=== PATIENT | female | born 1980 | race Hispanic/Latino ===

== ENCOUNTER 2018-10-04 17:41 | Emergency (ER) | payer BC, OTHER ==
[2018-10-04 18:21] LABS: Absolute Lymphocytes (CBC) 1.3 K/uL (0.7-4.9); Absolute Monocytes 0.4 K/uL (0.1-1.3); Absolute Neutrophil 7.2 K/uL (1.8-8.0); Basophils % 0.8 % (0-1.3); Eosinophils % 0.3 % (0-4.4); Hematocrit 40.9 % (36.0-45.0); Lymphocytes % 14.9 % (15.3-44.8); MPV 9.3 fL (7.6-11.3); RBC Red Blood Cell Count 4.68 M/uL (3.86-4.86)
[2018-10-04] MEDS ORDERED: NA CHLORIDE 0.9% 1,000 ML ONE (18:28)
[2018-10-04] MEDS ORDERED: ONDANSETRON 4 MG/2 ML VIAL ONE ×2 (18:28→19:28)
[2018-10-04] MEDS ORDERED: FAMOTIDINE 20 MG/2 ML VIAL IV ONE (18:29)
[2018-10-04 18:38] LABS: ALT/SGPT 27 U/L (12-78); AST/SGOT 20 U/L (15-37); Albumin 3.1 g/dL (3.4-5.0); Alkaline Phosphatase 92 U/L (45-117); BUN Blood Urea Nitrogen 8 mg/dL (7-18); Bicarbonate 22 mmol/L (21-32); Bilirubin Direct 0.1 mg/dL (0-0.2); Bilirubin Total 0.6 mg/dL (0.2-1.0); Glucose Level 108 mg/dL (74-106); Lipase 72 U/L (73-393); Protein, Total 7.1 g/dL (6.4-8.2); Sodium Level 142 mmol/L (136-145)
[2018-10-04 19:35] LABS: Urine Blood TRACE (NEG); Urine Glucose NEGATIVE (NEG); Urine Protein 1+ (NEG)
[2018-10-04 19:36] LABS: Urine Bacteria >50 /HPF (<20); Urine Culture Reflex Order NOT NEEDED; Urine RBC <5 /HPF (NONE SEEN)
--- NOTE | 2018-10-04 22:12 | ER ---
Nurse's Notes [facility] Name: Tash Rodriguez Age: 38 yrs Sex: Female : 1980 Arrival Date: 10/04/2018 Time: 17:45 Bed 25 Private MD: Diagnosis: Nausea and vomiting; related conditions, unspecified, first trimester Presentation: 10/04 17:50 Presenting complaint: Patient states: I am about 11 weeks and at my 9 week apt la1 I was prescribed reglan for nausea which I have never had to take but this morning I started vomiting and I can't keep anything down at all. Transition of care: patient was not received from another setting of care. Onset of symptoms was October 04, 2018. Risk Assessment: Do you want to hurt yourself or someone else? Patient reports no desire to harm self or others. Initial Sepsis Screen: Does the patient meet any 2 criteria? No. Patient's initial sepsis screen is negative. Does the patient have a suspected source of infection? No. Patient's initial sepsis screen is negative. Care prior to arrival: None. 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 - Social history:: Smoking status: Patient/guardian denies using tobacco. - Ebola Screening: : No symptoms or risks identified at this time. Screenin:32 Abuse screen: Denies threats or abuse. Denies injuries from another. Nutritional mg2 screening: No deficits noted. Tuberculosis screening: No symptoms or risk factors identified. Fall Risk IV access (20 points). Assessment: 18:30 General: Appears in no apparent distress. comfortable, Behavior is calm, cooperative. mg2 Pain: Complains of pain in suprapubic area Pain does not radiate. Pain currently is 1 out of 10 on a pain scale. Quality of pain is described as aching, Pain began gradually, Is intermittent. Neuro: Level of Consciousness is awake, alert, obeys commands, Oriented to person, place, time, situation. Cardiovascular: Capillary refill < 3 seconds Patient's skin is warm and dry. Respiratory: Airway is patent Respiratory effort is even, unlabored, Respiratory pattern is regular, symmetrical. GI: Abdomen is round non-distended, Reports nausea, vomiting. : No signs and/or symptoms were reported regarding the genitourinary system. : Reports pain in suprapubic area. EENT: No signs and/or symptoms were reported regarding the EENT system. Derm: Skin is intact, is healthy with good turgor, Skin is pink, warm \T\ dry. normal. Musculoskeletal: Circulation, motion, and sensation intact. Capillary refill < 3 seconds. 21:14 Reassessment: transvaginal ultrasound at bedside ongoing. mg2 22:22 Reassessment: Patient states feeling better. Patient states symptoms have improved. mg2 Vital Signs: 17:53 Pulse 97; Resp 16; Temp 98.7; Pulse Ox 100% on R/A; Weight 95.25 kg; Height 5 ft. 1 in. la1 (154.94 cm); 17:53 BP 132 / 104; la1 18:33 BP 134 / 72; Pulse 85; Resp 18; Pulse Ox 100% on R/A; Pain 1/10; mg2 19:36 Pulse 80; Resp 18; Pulse Ox 100% on R/A; Pain 0/10; mg2 21:07 BP 132 / 73; Pulse 68; Resp 18; Pulse Ox 100% on R/A; mg2 22:00 BP 110 / 78; Pulse 78; Resp 18; Pulse Ox 100% on R/A; Pain 0/10; mg2 17:53 Body Mass Index 39.68 (95.25 kg, 154.94 cm) la1 ED Course: 17:45 Patient arrived in ED. mr 17:52 Triage completed. la1 17:52 Arm band placed on left wrist. la1 18:00 Ever Alvarez PA is PHCP. cp 18:01 Jose Jaramillo MD is Attending Physician. cp 18:03 Michael Elaine, RN is Primary Nurse. mg2 18:32 No provider procedures requiring assistance completed. Inserted saline lock: 22 gauge mg2 in left hand, using aseptic technique. Blood collected. 18:33 Patient has correct armband on for positive identification. Door closed. mg2 21:46 Matter Eval Tm 1 In Process Unspecified. EDMS 22:22 IV discontinued, intact, bleeding controlled, No redness/swelling at site. Pressure mg2 dressing applied. Administered Medications: 18:29 Drug: Zofran 4 mg Route: IVP; Site: left hand; mg2 20:59 Follow up: Response: No adverse reaction; Marked relief of symptoms mg2 18:29 Drug: Pepcid 20 mg Route: IVP; Site: left hand; mg2 20:58 Follow up: Response: No adverse reaction; Marked relief of symptoms mg2 18:30 Drug: NS 0.9% 1000 ml Route: IV; Rate: 1 bolus; Site: left hand; mg2 20:59 Follow up: Response: No adverse reaction; IV Status: Completed infusion mg2 19:30 Drug: NS 0.9% 1000 ml Route: IV; Rate: 1 bolus; Site: left hand; mg2 20:58 Follow up: Response: No adverse reaction; IV Status: Completed infusion mg2 19:30 Drug: Zofran 4 mg Route: IVP; Site: left hand; mg2 20:58 Follow up: Response: No adverse reaction; Marked relief of symptoms mg2 22:05 Not Given (Patient Refused): Phenergan 12.5 mg IVP once mg2 Outcome: 22:11 Discharge ordered by . xenia 22:22 Discharged to home ambulatory, with family. mg2 22:22 Condition: stable 22:22 Discharge instructions given to patient, family, Instructed on discharge instructions, follow up and referral plans. medication usage, Demonstrated understanding of instructions, follow-up care, medications, Prescriptions given X 2. 22:23 Patient left the ED. mg2 Signatures: Dispatcher [employer] EDAL Chelsea Lyles Victoriano Desouza, RN RN la1 Ever Alvarez PA PA cp Gardose, Michele, RN RN mg2 Corrections: (The following items were deleted from the chart) 19:32 19:32 Temp 101.1F; mg2 mg2
--- NOTE | 2018-10-04 22:12 | EDPHYS ---
Physician Documentation [facility] Name: Tash Rodriguez Age: 38 yrs Sex: Female : 1980 Arrival Date: 10/04/2018 Time: 17:45 Bed 25 Private MD: ED Physician Jose Jaramillo HPI: 10/04 18:15 This 38 yrs old Female presents to ER via Ambulatory with complaints of 11 wks cp , Vomiting, Back Pain. 18:15 The patient presents to the emergency department with abdominal pain, of the left lower cp quadrant, nausea and vomiting, that started this morning, and is continuous, described as bilious, vaginal bleeding, described as spotting. 18:15 The estimated gestational age is 11 weeks. course: care: private OB cp physician, Leakage of Fluid: none appreciated, Ultrasound: the patient had an ultrasound. Previous pregnancies: the patient has never been . Associated signs and symptoms: Pertinent positives: vaginal bleeding, Pertinent negatives: chest pain, diarrhea, fever. 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 - Social history:: Smoking status: Patient/guardian denies using tobacco. - Ebola Screening: : No symptoms or risks identified at this time. ROS: 18:30 Constitutional: Positive for poor PO intake, Negative for body aches, chills, fever. cp 18:30 Eyes: Negative for injury, pain, redness, and discharge. cp 18:30 ENT: Negative for drainage from ear(s), ear pain, sore throat, difficulty swallowing, difficulty handling secretions. 18:30 Cardiovascular: Negative for chest pain, edema, palpitations. 18:30 Respiratory: Negative for cough, shortness of breath, wheezing. 18:30 Abdomen/GI: Positive for abdominal pain, nausea and vomiting, Negative for diarrhea, constipation, black/tarry stool, rectal bleeding. 18:30 Back: Positive for radiated pain. 18:30 : Positive for vaginal bleeding, Negative for urinary symptoms. 18:30 Skin: Negative for rash. 18:30 Neuro: Negative for altered mental status, dizziness, headache, syncope, weakness. 18:30 All other systems are negative. Exam: 18:35 Constitutional: The patient appears in no acute distress, alert, awake, non-toxic, well cp developed, well nourished. 18:35 Head/Face: Normocephalic, atraumatic. cp 18:35 Eyes: Periorbital structures: appear normal, Conjunctiva: normal, no exudate, no injection, Sclera: no appreciated abnormality, Lids and lashes: appear normal, bilaterally. 18:35 ENT: External ear(s): are unremarkable, Nose: is normal, Mouth: Lips: moist, Oral mucosa: pink and intact, moist, Posterior pharynx: is normal, airway is patent, no erythema, no exudate. 18:35 Neck: ROM/movement: is normal, is supple, without pain, no range of motions limitations, no meningismus, no nuchal rigidity. 18:35 Chest/axilla: Inspection: normal, Palpation: is normal, no crepitus, no tenderness. 18:35 Cardiovascular: Rate: normal, Rhythm: regular, Heart sounds: murmur, not appreciated, Edema: is not appreciated. 18:35 Respiratory: the patient does not display signs of respiratory distress, Respirations: normal, no use of accessory muscles, no retractions, no splinting, no tachypnea, labored breathing, is not present, Breath sounds: are clear throughout, no decreased breath sounds, no stridor, no wheezing. 18:35 Abdomen/GI: Inspection: abdomen appears normal, Bowel sounds: active, all quadrants, Palpation: soft, in all quadrants, mild abdominal tenderness, in the left lower quadrant, rebound tenderness, is not appreciated, involuntary guarding, is not appreciated. 18:35 Back: pain, that is mild, of the low back area, ROM is normal. 18:35 Skin: no rash present. 18:35 Neuro: Orientation: to person, place \T\ time. Mentation: is normal, Cerebellar function: is grossly normal, Motor: moves all fours, strength is normal, Sensation: is normal. Vital Signs: 17:53 Pulse 97; Resp 16; Temp 98.7; Pulse Ox 100% on R/A; Weight 95.25 kg; Height 5 ft. 1 in. la1 (154.94 cm); 17:53 BP 132 / 104; la1 18:33 BP 134 / 72; Pulse 85; Resp 18; Pulse Ox 100% on R/A; Pain 1/10; mg2 19:36 Pulse 80; Resp 18; Pulse Ox 100% on R/A; Pain 0/10; mg2 21:07 BP 132 / 73; Pulse 68; Resp 18; Pulse Ox 100% on R/A; mg2 22:00 BP 110 / 78; Pulse 78; Resp 18; Pulse Ox 100% on R/A; Pain 0/10; mg2 17:53 Body Mass Index 39.68 (95.25 kg, 154.94 cm) la1 MDM: 18:01 Patient medically screened. cp 18:30 Differential diagnosis: ectopic , hyperemesis , dehydration, cp electrolyte abnormality. 22:10 Data reviewed: vital signs, nurses notes, lab test result(s), radiologic studies, cp ultrasound. 22:10 Counseling: I had a detailed discussion with the patient and/or guardian regarding: the cp historical points, exam findings, and any diagnostic results supporting the discharge/admit diagnosis, lab results, radiology results, the need for outpatient follow up, an OB/Gyne specialist, to return to the emergency department if symptoms worsen or persist or if there are any questions or concerns that arise at home. Response to treatment: the patient's symptoms have markedly improved after treatment, VSS. Nausea markedly improved and vomiting resolved. Patient observed tolerating po fluids. Will discharge to home for continued monitoring. 10/04 18: Order name: Basic Metabolic Panel; Complete Time: 18:52 cp 10/04 18:52 Interpretation: Normal except: CL 110; GLUC 108. cp 10/04 18:06 Order name: CBC with Diff; Complete Time: 18:52 cp 10/04 18:53 Interpretation: Normal except: RDW 15.7; LEONEL% 80.0; LYM% 14.9. cp 10/04 18:06 Order name: Creatinine for Radiology; Complete Time: 18:52 cp 10/04 18:06 Order name: Hepatic Function; Complete Time: 18:52 cp 10/04 20:26 Interpretation: Normal except: ALB 3.1; GLOB 4.0; A/G 0.8. 10/04 18:06 Order name: Lipase; Complete Time: 18:52 cp 10/04 18:53 Interpretation: LIP 72; Reviewed. 10/04 18:15 Order name: Urine Microscopic Only cp 10/04 18:15 Order name: Quantitative Hcg 10/04 18:15 Order name: Rh Type 10/04 18:15 Order name: Urine Microscopic Only; Complete Time: 20:25 EDMS 10/04 20:26 Interpretation: Normal except: UWBC 5-10; UBACT >50; SQEPI 20-50. 10/04 18:15 Order name: HCG, Quantitative; Complete Time: 19:27 EDMS 10/04 19:27 Interpretation: HCGQ 45397; Reviewed. 10/04 19:29 Order name: Urine Dipstick--Ancillary (enter results); Complete Time: 20:25 [facility] 10/04 20:26 Interpretation: UKET 3+; UBLD TRACE; UPROT 1+; UESTR 1+. 10/04 19:29 Order name: Urine --Ancillary (enter results); Complete Time: 20:25 ar 10/04 21:52 Order name: Rh Typing; Complete Time: 22:08 EDMS 10/04 22:08 Interpretation: Reviewed. 10/04 18:06 Order name: IV Saline Lock; Complete Time: 18:15 10/04 18:06 Order name: Labs collected and sent; Complete Time: 18:15 10/04 18:15 Order name: Urine Dipstick-Ancillary (obtain specimen); Complete Time: 19:30 10/04 18:15 Order name: Urine Test (obtain specimen); Complete Time: 19:30 10/04 20:45 Order name: PO challenge; Complete Time: 22:05 cp 10/04 21:45 Order name: Matter Eval Tm 1 EDMS Administered Medications: 18:29 Drug: Zofran 4 mg Route: IVP; Site: left hand; mg2 20:59 Follow up: Response: No adverse reaction; Marked relief of symptoms mg2 18:29 Drug: Pepcid 20 mg Route: IVP; Site: left hand; mg2 20:58 Follow up: Response: No adverse reaction; Marked relief of symptoms mg2 18:30 Drug: NS 0.9% 1000 ml Route: IV; Rate: 1 bolus; Site: left hand; mg2 20:59 Follow up: Response: No adverse reaction; IV Status: Completed infusion mg2 19:30 Drug: NS 0.9% 1000 ml Route: IV; Rate: 1 bolus; Site: left hand; mg2 20:58 Follow up: Response: No adverse reaction; IV Status: Completed infusion mg2 19:30 Drug: Zofran 4 mg Route: IVP; Site: left hand; mg2 20:58 Follow up: Response: No adverse reaction; Marked relief of symptoms mg2 22:05 Not Given (Patient Refused): Phenergan 12.5 mg IVP once mg2 Disposition: 10/05 07:07 Co-signature as Attending Physician, Jose Jaramillo MD. rn Disposition: 10/04/18 22:11 Discharged to Home. Impression: Nausea and vomiting, related conditions, unspecified, first trimester. - Condition is Stable. - Discharge Instructions: First Trimester of , Vomiting, Adult. - Prescriptions for Phenergan 25 mg Rectal Suppository - insert 1 suppository by RECTAL route every 6 hours As needed; 12 suppository. promethazine 25 mg Oral Tablet - take 1 tablet by ORAL route every 6 hours As needed; 20 tablet. - Medication Reconciliation Form, Thank You Letter, Antibiotic Education, Prescription Opioid Use form. - Follow up: Private Physician; When: 1 - 2 days; Reason: Recheck today's complaints. - Problem is new. - Symptoms have improved. Signatures: Dispatcher [employer] [facility] Jose Jaramillo MD MD rn Attema, Lee RN RN la1 Ever Alvarez PA PA cp Gardose, Michele, RN RN mg2 Corrections: (The following items were deleted from the chart) 10/04 21:45 18:54 Transvaginal Ob+US.RAD.BRZ ordered. [facility] 22:23 22:11 10/04/2018 22:11 Discharged to Home. Impression: Nausea and vomiting; mg2 related conditions, unspecified, first trimester. Condition is Stable. Forms are Medication Reconciliation Form, Thank You Letter, Antibiotic Education, Prescription Opioid Use. Follow up: Private Physician; When: 1 - 2 days; Reason: Recheck today's complaints. Problem is new. Symptoms have improved. cp
--- NOTE | 2018-10-05 08:13 | RAD REPORT ---
EXAM DESCRIPTION: US - Matter Omi Tm 1 - 10/04/2018 9:45 pm CLINICAL HISTORY: , pelvic pain Preliminary findings provided at the time of the study. COMPARISON: None. FINDINGS: Gestational sac normal in appearance. A single intrauterine gestation is identified. Heart rate is 173 bpm. No hematoma, mass or other suspicious finding. Monserrate-rump length measurement corres ponds to a 11 W 3 D age. BERTHA is 04/22/2019. No intrauterine hematoma. Amniotic fluid volume is normal . No ovarian or adnexal abnormality seen. A 3 x 2 centimeter right anterior mid uterine fibroid is present. A 5.4 centimeter left fundal fibroi d is present as well. IMPRESSION: Single T11 W 3 D intrauterine gestation. BERTHA is 04/22/2019. Heart rate is normal. Two moderate-sized fibroids are present in the uterus. No other significant uterine finding. No suspicious adnexal finding.
== END 2018-10-04 22:23 | disposition home or self-care (01) ==
LOC: ER 17:41
DX: O26.851 Spotting complicating pregnancy, first trimester (principal); Z3A.11 11 weeks gestation of pregnancy; Z88.1 Allergy status to other antibiotic agents; Z88.2 Allergy status to sulfonamides; Z88.5 Allergy status to narcotic agent
CPT/HCPCS: 36415; 76801; 80048; 80076; 81003; 81015; 81025; 83690; 84702; 85025; 86901; 96361; 96374; 96375; 99284; J2405; J7030

== ENCOUNTER 2019-04-17 11:09 | Emergency (ER) | payer BC ==
[2019-04-17 13:04] LABS: Absolute Lymphocytes (CBC) 1.1 K/uL (0.7-4.9); Basophils % 0.6 % (0-1.3); Hematocrit 29.4 % (36.0-45.0); Lymphocytes % 17.3 % (15.3-44.8); MPV 8.9 fL (7.6-11.3); RBC Red Blood Cell Count 3.42 M/uL (3.86-4.86)
[2019-04-17 13:14] LABS: ALT/SGPT 26 U/L (12-78); AST/SGOT 20 U/L (15-37); Albumin 2.8 g/dL (3.4-5.0); Alkaline Phosphatase 112 U/L (45-117); BUN Blood Urea Nitrogen 9 mg/dL (7-18); Bicarbonate 29 mmol/L (21-32); Bilirubin Direct 0.1 mg/dL (0-0.2); Bilirubin Total 0.4 mg/dL (0.2-1.0); Glucose Level 89 mg/dL (74-106); Potassium 3.6 mmol/L (3.5-5.1); Protein, Total 6.4 g/dL (6.4-8.2); Sodium Level 147 mmol/L (136-145)
[2019-04-17 13:20] LABS: Urine Appearance CLOUDY; Urine Bilirubin NEGATIVE (NEG); Urine Blood 3+ (NEG); Urine Color RED; Urine Glucose NEGATIVE (NEG); Urine Microscopic Reflex ORDER UMIC; Urine Protein 1+ (NEG); Urine Specific Gravity <=1.005 (1.005-1.030); Urine Urobilinogen 0.2 mg/dL (0.2-1.0)
[2019-04-17 13:36] LABS: Urine Bacteria 20-50 /HPF (<20); Urine Culture Reflex Order REFLEXED; Urine RBC >50 /HPF (NONE SEEN)
--- NOTE | 2019-04-17 14:42 | EDPHYS ---
Physician Documentation [facility] Name: Tash Duenas Age: 39 yrs Sex: Female : 1980 Arrival Date: 04/17/2019 Time: 11:12 Bed 13 Private MD: ED Physician Garrett Duncan HPI: 04/17 12:25 This 39 yrs old Female presents to ER via Ambulatory with complaints of Blood pm1 Pressure Problem, Headache. 12:25 The patient complains of pain to the head, diffusely. The patient describes the pm1 headache as aching, constant. Onset: The symptoms/episode began/occurred this morning. Associated signs and symptoms: Pertinent positives: elevated blood pressure, Pertinent negatives: dizziness, fever, nausea, neck stiffness, vomiting, vomiting. Headache History: Other history of migraines. The patient has been recently seen by a physician: Dr. Rodriguez. Discharged from [facility] yesterday. Was admitted for anemia post , UTI, and retained products of conception. Had DNC, blood transfusions, and abx treatment. Patient currently taking Augmentin and Ceftin for UTI that is improving. Patient without any current urinary symptoms. Reported elevated blood pressure at home with headache. Patient without any heavy vaginal bleeding or abdominal pain. 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 tw2 Historical: - Allergies: 11:32 Codeine; hb 11:32 Keflex; hb 11:32 one other unknown abx; hb 11:32 Sulfa (Sulfonamide Antibiotics); hb 11:51 Cephalexin; tw2 - Home Meds: 11:51 Amitriptyline Oral [Active]; tw2 - PMHx: 11:32 Migraines; hb - PSHx: 11:32 breast reduction; ; hb - Immunization history:: Adult Immunizations up to date. - Social history:: Smoking status: Patient/guardian denies using tobacco. - Ebola Screening: : No symptoms or risks identified at this time. ROS: 12:25 Constitutional: Negative for fever, chills, and weight loss, Eyes: Negative for injury, pm1 pain, redness, and discharge, ENT: Negative for injury, pain, and discharge, Neck: Negative for injury, pain, and swelling, Cardiovascular: Negative for chest pain, palpitations, and edema, Respiratory: Negative for shortness of breath, cough, wheezing, and pleuritic chest pain, Abdomen/GI: Negative for abdominal pain, nausea, vomiting, diarrhea, and constipation, Back: Negative for injury and pain, : Negative for injury, bleeding, discharge, and swelling, MS/Extremity: Negative for injury and deformity, Skin: Negative for injury, rash, and discoloration. 12:25 Neuro: Positive for headache, Negative for numbness, tingling. Exam: 12:25 Constitutional: This is a well developed, well nourished patient who is awake, alert, pm1 and in no acute distress. Head/Face: Normocephalic, atraumatic. Eyes: Pupils equal round and reactive to light, extra-ocular motions intact. Lids and lashes normal. Conjunctiva and sclera are non-icteric and not injected. Cornea within normal limits. Periorbital areas with no swelling, redness, or edema. ENT: Nares patent. No nasal discharge, no septal abnormalities noted. Tympanic membranes are normal and external auditory canals are clear. Oropharynx with no redness, swelling, or masses, exudates, or evidence of obstruction, uvula midline. Mucous membranes moist. Neck: Trachea midline, no thyromegaly or masses palpated, and no cervical lymphadenopathy. Supple, full range of motion without nuchal rigidity, or vertebral point tenderness. No Meningismus. Chest/axilla: Normal chest wall appearance and motion. Nontender with no deformity. No lesions are appreciated. Cardiovascular: Regular rate and rhythm with a normal S1 and S2. No gallops, murmurs, or rubs. Normal PMI, no JVD. No pulse deficits. Respiratory: Lungs have equal breath sounds bilaterally, clear to auscultation and percussion. No rales, rhonchi or wheezes noted. No increased work of breathing, no retractions or nasal flaring. Abdomen/GI: Soft, non-tender, with normal bowel sounds. No distension or tympany. No guarding or rebound. No evidence of tenderness throughout. Back: No spinal tenderness. No costovertebral tenderness. Full range of motion. 12:25 MS/ Extremity: Pulses equal, no cyanosis. Neurovascular intact. Full, normal range of motion. 12:25 Skin: Appearance: Wound recheck: no dehiscence, discharge, cellulitis at scar. 12:25 Neuro: Orientation: is normal, Mentation: is normal, Cranial nerves: CN II- XII are normal as tested, Motor: moves all fours. Vital Signs: 11:31 BP 155 / 110; Pulse 74; Resp 16; Temp 97.8; Pulse Ox 100% on R/A; Weight 99.79 kg; hb Height 5 ft. (152.40 cm); Pain 10/10; 12:18 BP 129 / 81; Pulse 79; Resp 17; Pulse Ox 99% on R/A; tw2 13:00 BP 150 / 94; Pulse 66; Resp 17; Pulse Ox 98% on R/A; tw2 13:48 BP 134 / 97; Pulse 60; Resp 17; Pulse Ox 97% on R/A; tw2 14:54 BP 145 / 97; Pulse 86; Resp 17; Pulse Ox 97% on R/A; tw2 11:31 Body Mass Index 42.97 (99.79 kg, 152.40 cm) hb MDM: 11:57 Patient medically screened. pm1 14:30 Physician consultation: Genevieve Rodriguez was called at 14:30, was contacted at 14:30, pm1 regarding consult, patient's condition, and will see patient in office, in 2-3 days, would like medications started, Nifedipine 30 mg XL PO daily and will see the patient on Saturday. 14:33 Data reviewed: vital signs. Data interpreted: Pulse oximetry: on room air is 97 %. pm1 Interpretation: normal. Counseling: I had a detailed discussion with the patient and/or guardian regarding: the historical points, exam findings, and any diagnostic results supporting the discharge/admit diagnosis, lab results, the need for outpatient follow up, Dr. Rodirguez on Saturday, to return to the emergency department if symptoms worsen or persist or if there are any questions or concerns that arise at home. 04/17 12:19 Order name: Basic Metabolic Panel; Complete Time: 13:35 pm1 04/17 12:19 Order name: CBC with Diff; Complete Time: 13:35 pm1 04/17 12:19 Order name: Hepatic Function; Complete Time: 13:35 pm1 04/17 12:19 Order name: Magnesium; Complete Time: 13:35 pm1 04/17 12:38 Order name: UA; Complete Time: 13:38 eb 04/17 12:19 Order name: IV Saline Lock; Complete Time: 13:00 pm1 04/17 12:19 Order name: Labs collected and sent; Complete Time: 13:00 pm1 04/17 12:19 Order name: Urine Dipstick-Ancillary (obtain specimen); Complete Time: 13:00 pm1 04/17 13:24 Order name: Urine Microscopic Only; Complete Time: 13:38 EDMS 04/17 13:39 Order name: Urine Culture EDVT Administered Medications: No medications were administered Disposition: 04/17/19 14:41 Discharged to Home. Impression: Essential (primary) hypertension. - Condition is Stable. - Discharge Instructions: Hypertension, Preeclampsia and Eclampsia, How to Take Your Blood Pressure, [id number], DASH Eating Plan, Managing Your Hypertension. - Prescriptions for nifedipine 30 mg Oral tablet extended release 24hr - take 1 tablet by ORAL route once daily; 30 tablet. - Medication Reconciliation Form, Thank You Letter, Antibiotic Education, Prescription Opioid Use form. - Follow up: Emergency Department; When: As needed; Reason: Worsening of condition. Follow up: Private Physician; When: 2 - 3 days; Reason: Recheck today's complaints, Continuance of care, Re-evaluation by your physician. - Problem is new. - Symptoms have improved. - Notes: Follow up with Dr. Rodriguez on Saturday Addendum: 04/19/2019 06:56 Co-signature as Attending Physician, Garrett Duncan MD. g s Signatures: Dispatcher [employer] [facility] Festus Schaeffer, UNDERGROUND DRILL OPERATOR UNDERGROUND DRILL OPERATOR pm1 Ronna Sal RN RN Jojo Huang RN RN tw2 Garrett Duncan MD MD Corrections: (The following items were deleted from the chart) 04/17 13:19 12:20 UA MICROSCOPIC+U.LAB.BRZ ordered. [facility] 14:54 14:41 04/17/2019 14:41 Discharged to Home. Impression: Essential (primary) tw2 hypertension. Condition is Stable. Forms are Medication Reconciliation Form, Thank You Letter, Antibiotic Education, Prescription Opioid Use. Follow up: Emergency Department; When: As needed; Reason: Worsening of condition. Follow up: Private Physician; When: 2 - 3 days; Reason: Recheck today's complaints, Continuance of care, Re-evaluation by your physician. Problem is new. Symptoms have improved. pm1
--- NOTE | 2019-04-17 14:42 | ER ---
Nurse's Notes [facility] Name: Tash Duenas Age: 39 yrs Sex: Female : 1980 Arrival Date: 04/17/2019 Time: 11:12 Bed 13 Private MD: Diagnosis: Essential (primary) hypertension Presentation: 04/17 11:28 Presenting complaint: Discharged yesterday from [facility]. Had C Section 04/02, hb complications with heavy bleeding, multiple blood transfusions, D\\T\\C 3 days later. Today reports home BP 150-101, malaise, tinkling in arms and legs,and "feels like something is just not right." On 2 unknown ABX for UTI. Transition of care: patient was not received from another setting of care. Onset of symptoms was April 17, 2019. Risk Assessment: Do you want to hurt yourself or someone else? Patient reports no desire to harm self or others. Care prior to arrival: None. 11:28 Method Of Arrival: Ambulatory hb 11:28 Acuity: ZEN 3 hb 11:49 Initial Sepsis Screen: Does the patient meet any 2 criteria? No. Patient's initial tw2 sepsis screen is negative. Does the patient have a suspected source of infection? No. Patient's initial sepsis screen is negative. 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 tw2 Historical: - Allergies: 11:32 Codeine; hb 11:32 Keflex; hb 11:32 one other unknown abx; hb 11:32 Sulfa (Sulfonamide Antibiotics); hb 11:51 Cephalexin; tw2 - Home Meds: 11:51 Amitriptyline Oral [Active]; tw2 - PMHx: 11:32 Migraines; hb - PSHx: 11:32 breast reduction; ; hb - Immunization history:: Adult Immunizations up to date. - Social history:: Smoking status: Patient/guardian denies using tobacco. - Ebola Screening: : No symptoms or risks identified at this time. Screenin:49 Abuse screen: Denies threats or abuse. Nutritional screening: No deficits noted. tw2 Tuberculosis screening: No symptoms or risk factors identified. Fall Risk None identified. Assessment: 12:00 General: Appears in no apparent distress. obese, well groomed, Behavior is calm, tw2 cooperative, appropriate for age. Pain: Complains of pain in "headache". Neuro: Level of Consciousness is awake, alert, obeys commands, Oriented to person, place, time, situation. Cardiovascular: Heart tones S1 S2 Patient's skin is warm and dry. Respiratory: Airway is patent Respiratory effort is even, unlabored, Respiratory pattern is regular, symmetrical, Breath sounds are clear bilaterally. GI: No signs and/or symptoms were reported involving the gastrointestinal system. Abdomen is round non-distended, obese, Bowel sounds present X 4 quads. : No signs and/or symptoms were reported regarding the genitourinary system. EENT: No signs and/or symptoms were reported regarding the EENT system. Derm: No signs and/or symptoms reported regarding the dermatologic system. Musculoskeletal: Range of motion: intact in all extremities. 13:48 Reassessment: Patient appears in no apparent distress at this time. No changes from tw2 previously documented assessment. Patient and/or family updated on plan of care and expected duration. Pain level reassessed. Patient is alert, oriented x 3, equal unlabored respirations, skin warm/dry/pink. 14:54 Reassessment: Patient appears in no apparent distress at this time. No changes from tw2 previously documented assessment. Patient and/or family updated on plan of care and expected duration. Pain level reassessed. Patient is alert, oriented x 3, equal unlabored respirations, skin warm/dry/pink. Vital Signs: 11:31 BP 155 / 110; Pulse 74; Resp 16; Temp 97.8; Pulse Ox 100% on R/A; Weight 99.79 kg; hb Height 5 ft. (152.40 cm); Pain 10/10; 12:18 BP 129 / 81; Pulse 79; Resp 17; Pulse Ox 99% on R/A; tw2 13:00 BP 150 / 94; Pulse 66; Resp 17; Pulse Ox 98% on R/A; tw2 13:48 BP 134 / 97; Pulse 60; Resp 17; Pulse Ox 97% on R/A; tw2 14:54 BP 145 / 97; Pulse 86; Resp 17; Pulse Ox 97% on R/A; tw2 11:31 Body Mass Index 42.97 (99.79 kg, 152.40 cm) ED Course: 11:12 Patient arrived in ED. mr 11:31 Triage completed. hb 11:32 Arm band placed on. hb 11:45 Bed in low position. Call light in reach. tw2 11:48 Jojo Huang RN is Primary Nurse. tw2 11:57 Festus Schaeffer NP is PHCP. pm1 11:57 Garrett Duncan MD is Attending Physician. pm1 12:50 Initial lab(s) drawn, by me, sent to lab. Urine collected: clean catch specimen, blood em tinged. Inserted saline lock: 20 gauge in right antecubital area, using aseptic technique. Blood collected. 14:53 No provider procedures requiring assistance completed. IV discontinued, intact, tw2 bleeding controlled, No redness/swelling at site. Pressure dressing applied. Administered Medications: No medications were administered Outcome: 14:41 Discharge ordered by . pm1 14:53 Discharged to home ambulatory, with family. tw2 14:53 Condition: stable 14:53 Discharge instructions given to patient, family, Instructed on discharge instructions, follow up and referral plans. medication usage, Demonstrated understanding of instructions, follow-up care, medications, Prescriptions given X 1. 14:54 Patient left the ED. tw2 Signatures: Lyles Chelsea May, Wilder, INTEGRATED CIRCUIT FABRICATOR INTEGRATED CIRCUIT FABRICATOR em Festus Schaeffer NP MOUNTER [employer]XOP[employer]ON[employer] pm1 Ronna Sal, MALINDA RN Jojo Huang RN RN tw2
[2019-04-17 15:11] VITALS: TEMP 97.8
[2019-04-17 15:14] VITALS: O2SAT 97
[2019-04-17 15:15] VITALS: BP 145/97
== END 2019-04-17 14:54 | disposition home or self-care (01) ==
LOC: ER 11:09
DX: I10 Essential (primary) hypertension (principal); Z88.1 Allergy status to other antibiotic agents; Z88.2 Allergy status to sulfonamides; Z88.5 Allergy status to narcotic agent
CPT/HCPCS: 36415; 80048; 80076; 81003; 81015; 83735; 85025; 87086; 87088; 99283

== ENCOUNTER 2020-11-24 19:36 | Emergency (ER) | payer BC ==
--- OUTSIDE RECORDS SUMMARY | 2020-11-24 19:42 | XMS REPORT | Continuity of Care Document ---
:1980 Author Organization [facility] t Address [address] [place] [address] Care Team Providers Name Role Phone CALIXTO Attending Clinician Unavailable Cristo Kelly Attending Clinician CALIXTO Attending Clinician Unavailable Cristo Kelly Admitting Clinician Payers Payer Name Policy Type Policy Number Effective Date Expiration Date S magali [id number] PPO [id number] 2020 00:00:00 Problems Condition Condition Condition Status Onset Resolution Last Treating Co mments Source Name Details Category Date Date Treatment Clinician Date MORBID Diagnosis Active 2020-10-31 Mem oria (SEVERE) 4- 08:37:00 l OBESITY MORBID 00:00: Boyden DUE TO (SEVERE) 00 EXCESS CA OBESITY DUE TO EXCESS CA Active 10/06/2020 [facility] E66.01 Diagnosis Active 2020-08-25 Mem oria 2-02 14:10:00 l E66.01 00:00: Boyden 00 Active 08/09/2020 [facility] Malabsorpt Malabsorpt Problem Active U nivers ion due to ion due to [place] of intoler[place], [place] e, not Physici elsewhere elsewhere ans classified classified Malnutriti Malnutriti Problem Active [facility] nivers on on [place]y of [place] [facility] ans Vitamin D Vitamin D Problem Active Uni vers deficiency deficiency it y of [place] [facility] Screening Screening Problem Active Uni vers for viral for viral ity of disease disease [place] [facility] Body mass Problem Active 2020-10-29 Me moria index 40+ 22:09:08 l - severely Body Rohith n obese mass index (finding) 40+ - severely obese (finding) Active Problem 10/29/2020 BMI-43 [facility] Gastroesop Problem Active 2020-10-29 M emoria hageal 22:09:08 l reflux Hoang disease Gastroesop (disorder) hageal reflux disease (disorder) Active Problem 10/29/2020 [facility] Hiatal Problem Active 2020-10-29 Memor ia hernia 22:09:08 l (disorder) Hiatal Herm analia hernia (disorder) Active Problem 10/29/2020 [facility] Migraine Problem Active 2020-10-29 Mem oria (disorder) 22:09:08 l Migraine Rohith n (disorder) Active Problem 10/29/2020 [facility] Mixed Problem Active 2020-10-29 Memor ia anxiety 22:09:08 l and Mixed Boyden depressive anxiety disorder and (disorder) depressive disorder (disorder) Active Problem 10/29/2020 [facility] Uterine Problem Active 2020-10-29 Brad mariia leiomyoma 22:09:08 l (disorder) Uterine Her lópez leiomyoma (disorder) Active Problem 10/29/2020 [facility] Allergies, Adverse Reactions, Alerts Allergy Allergy Status Severity Reaction(s) Onset Inactive Treating Comm ents Source Name Type Date Date Clinician Sulfa DA Active SV 2018-07 [facility] ([facility]ulfona 0[facility] Antibiot [facility] [place] [facility] [place] tetracai DA Active CA 2018-07 [facility] ne 0-07 [facility] [place] codeine DA Active SV 2018-07 [facility] 0[facility] [place] cephalex DA Active SV 2018-07 [facility] in 0-07 [facility] [place] latex DA Active SV 2018-07 [facility] 0-[facility] [place] latex DA Active CA 2018- [facility] 9- [facility] [place] tetracai DA Active CA [facility] ne 04-01 [facility] [place] Sulfa DA Active U [facility] (Sulfona 04-01 [facility] Antibiot 00 l of ics) [place] codeine DA Active U 2019- [facility] 9-25 [facility] [place] cephalex DA Active U 2018- [facility] in 9 [facility] 00:[facility] [place] Sulfa DA Active U [facility] (Sulfona - [facility]: [facility] Antibiot 00 l of ics) [place] codeine DA Active U 2019- [facility] 6-25 [facility] [place] cephalex DA Active U 2019- [facility] in -25 [facility] [place] sulfa Allergy Active [facility] to drug ity of (finding [place] ) Physici ans sulfa sulfa Active Memoria drugs drugs l [place] codeine codeine Active Memoria l [place] Keflex Keflex Active Memoria l [place]ang tetracyc tetracyc Active Memori a line line l topical topical Hoang Latex Latex Active Memoria l Hoang Adhesive Adhesive Active Memori a l Hoang codeine Allergy Active Univers to drug ity of (finding [place] ) Physici ans Keflex Allergy Active [facility] to drug ity of (finding [place] ) Physici ans Social History Social Habit Start Date Stop Date Quantity Comments Source Social History 2020-10-20 2020-10-20 [facility] juan a 17:33:39 17:33:39 Smoking Status Start Date Stop Date Source [facility] smoked [facility]finding[facility] Ordered Filled Start Stop Current Ordering Indication Dosage Frequency Signature Comments Components Source Medication Medication Date Date Medication? Clinician (SIG) Name Name Ondansetron Yes 4 mg = 1 Me moria 4 MG Oral 4-22 tab, PO, l Tablet 18:48: BID, PRN Boyden [Zofran] 00 Nausea, # 10 tab, 0 Refill(s), Pharmacy: [facility] 149, 152.4, cm, 10/24/20 8:06:00 CDT, Height, 99.2, kg, 10/24/20 8:06:00 CDT, Weight pantoprazol Yes 40 mg = 1 M emoria e 40 mg 4-22 tab, PO, l oral 15:00: Daily, # Hoang enteric 00 30 tab, 2 coated Refill(s), tablet Pharmacy: [facility] 149, 152.4, cm, 10/24/20 8:06:00 CDT, Height, 99.2, kg, 10/24/20 8:06:00 CDT, Weight Docusate Yes 100 mg = 1 Mem oria Sodium 100 4-22 cap, PO, l MG Oral 15:00: BID, PRN Rohith n Capsule 00 Constipati [Colace] on, # 20 cap, 0 Refill(s), Pharmacy: [facility] 149, 152.4, cm, 10/24/20 8:06:00 CDT, Height, 99.2, kg, 10/24/20 8:06:00 CDT, Weight Metoclopram Yes 5 mg = 1 Me moria phani 5 MG 4-22 tab, PO, l Oral Tablet 14:59: Q6H, PRN He rmann [Reglan] 00 Nausea & Vomiting, 30 minutes before meals and at bedtime, # 12 tab, 0 Refill(s), Pharmacy: [facility] 149, 152.4, cm, 10/24/20 8:06:00 CDT, Height, 99.2, kg, 10/24/20 8:06:00 CDT, Weight potassium No Notes: Memori a phosphate 4-21 (Same as: l 17:22: K Hoang 00 Phosphate. ) Do not infuse phosphorou s concurrent ly in the same line as TPN or IVF that contains calcium. For double lumen central lines, phosphorou s may be infused in a separate lumen from TPN. 1 mMol phoshate has 1.47 mEq potassium Infuse over 4 hours Metoclopram No Notes: Brad mariia phani 5 MG 4-21 (Same as: l Oral Tablet 15:00: Reglan) Her lópez [Reglan] 00 Take 30 min before meals tramadol No 50 mg = 1 Brad mariia hydrochlori 4-21 tab, PO, l de 50 MG 12:21: Q6H, PRN Vannessa nn Oral Tablet 00 Pain Score 1-3, X 3 day, # 12 tab, 0 Refill(s), Pharmacy: [facility] 149, 152.4, cm, 10/24/20 8:06:00 CDT, Height, 99.2, kg, 10/24/20 8:06:00 CDT, Weight tramadol No Notes: Not Mem oria hydrochlori 10-26 to exceed l de 50 MG 11:59: 400mg/day. Her lópez Oral Tablet 00 (Same As: Ultram) ketOROLAC No 4 days Memor ia 30 mg/mL 10-26 l injectable 11:59: MEDICATION H ermann solution WASTE Product Size: 30 mg Product Wasted: 0 mg Roxicodone No Notes: Memor ia 4-20 (Same as: l 16:34: Roxicodone ) Roxicodone No Notes: Memor ia 4-20 (Same as: l 16:33: Roxicodone ) pantoprazol No Notes: Brad mariia e 4-20 Tablet l 14:00: should not be chewed or crushed. (Same as: Protonix) Bupropion No 150 mg, 1 Mem oria 4-20 tab, l 14:00: Route: PO, Drug form: ERTAB, Daily, Dosing Weight 99.2, kg, Start date: 10/25/20 9:00:00 CDT, Duration: 30 day, Stop date: 11/23/20 9:00:00 CDT, 0 Sertraline No Notes: Memor ia 4-20 (Same as: l 14:00: Zoloft) Dexamethaso No Notes: Brad mariia ne 4-20 Concentrat l 11:58: ion: Hoang 00 4mg/ml Simethicone No Notes: Brad mariia 4-20 (Same as: l 09:50: Mylicon) gabapentin No Notes: Memor ia 4-20 (Same as: l 05:00: Neurontin) Ondansetron No Notes: Brad mariia 4-20 (Same as: l 05:00: Zofran) MEDICATION WASTE Product Size: 4 mg Product Wasted: 0 mg Lovenox No Notes: Memoria - (Same as: l 02:00: Lovenox) Amitriptyli No Notes: Brad mariia ne 10-25 (Same as: l 02:00: Elavil) Acetaminoph No Notes: Max Memoria en 10-24 acetaminop l 23:57: hen 4000 Hoang 00 mg/day (4 gm/day). (Same as: Tylenol Extra Strength) gabapentin No Notes: Memor ia 10-24 (Same as: l 23:52: Neurontin) sugammadex No Route: IV, M emoria (ANES) 10-24 Drug form: l 20:34: SOLN, Boyden 00 ONCE, Stop date: 10/24/20 15:34:00 CDT Hydralazine No 10 mg, Brad mariia 10-24 Route: l 20:32: IVP, Boyden 00 Q20Min, Dosing Weight 99.2, kg, PRN Elevated BP, Start date: 10/24/20 15:32:00 CDT, Duration: 2 doses or times, Stop date: Limited # of times Labetalol No 10 mg, Memori a 10-24 Route: l 20:32: IVP, Hoang 00 Q5Min, Dosing Weight 99.2, kg, PRN Elevated BP, Start date: 10/24/20 15:32:00 CDT, Duration: 5 doses or times, Stop date: Limited # of times Oxycodone No 5 mg, Memoria Hydrochlori 10-24 Route: PO, l de 5 MG 20:32: Drug form: Herm analia Oral Tablet 00 TAB, Q4H, Dosing Weight 99.2, kg, PRN Pain Score 4-6, Start date: 10/24/20 15:32:00 CDT, Duration: 30 day, Stop date: 11/23/20 15:31:00 CDT Morphine No 2 mg, Memoria 10-24 Route: l 20:32: IVP, Hoang 00 Q5Min, Dosing Weight 99.2, kg, PRN Pain Score 4-6, Start date: 10/24/20 15:32:00 CDT, Duration: 5 doses or times, Stop date: Limited # of times Fentanyl 2020-0 No 25 Memoria - microgram, l 20:32: Route: Boyden 00 IVP, Q5Min, Dosing Weight 99.2, kg, PRN Pain Score 4-6, Priority: Routine, Start date: 10/24/20 15:32:00 CDT, Duration: 4 doses or times, Stop date: Limited # of times Hydromorpho 2020-0 No 0.5 mg, Mem oria ne 10-24 Route: l 20:32: IVP, Boyden 00 Q5Min, Dosing Weight 99.2, kg, PRN Pain Score 7-10, Start date: 10/24/20 15:32:00 CDT, Duration: 4 doses or times, Stop date: Limited # of times Flumazenil 0 No 0.2 mg, Brad mariia 10-24 Route: l 20:32: IVP, PRN, Hoang 00 Dosing Weight 99.2, kg, PRN Benzodiaze pine Reversal, Initial dose, Start date: 10/24/20 15:32:00 CDT, Duration: 30 day, Stop date: 11/23/20 15:31:00 CDT Naloxone 2020-0 No 0.4 mg, Memori a 10-24 Route: l 20:32: IVP, Hoang 00 Q2MIN, Dosing Weight 99.2, kg, PRN Narcotic Reversal, Start date: 10/24/20 15:32:00 CDT, Duration: 8 doses or times, Stop date: Limited # of times Albuterol 2020-0 No 2.49 mg, Brad mariia 0.83 MG/ML 10-24 Route: l Inhalant 20:32: NEB, Boyden Solution 00 Q20Min, Dosing Weight 99.2, kg, PRN Wheezing, Start date: 10/24/20 15:32:00 CDT, Duration: 30 day, Stop date: 11/23/20 15:31:00 CDT Meperidine 2020-0 No 12.5 mg, Mem oria 10-24 Route: l 20:32: IVP, Boyden 00 Q30Min, Dosing Weight 99.2, kg, PRN Other -See Comment, For shivering, Start date: 10/24/20 15:32:00 CDT, Duration: 2 doses or times, Stop date: Limited # of times Ondansetron No 4 mg, Memor ia 10-24 Route: l 20:32: IVP, ONCE, Dosing Weight 99.2, kg, PRN Nausea & Vomiting, Start date: 10/24/20 15:32:00 CDT Promethazin No 6.25 mg, Me moria e 10-24 Route: l 20:32: IVPB, ONCE, Dosing Weight 99.2, kg, PRN Nausea & Vomiting, Start date: 10/24/20 15:32:00 CDT ondansetron No Route: IV, Memoria (ANES) 10-24 Drug form: l 20:29: INJ, ONCE, Stop date: 10/24/20 15:29:00 CDT hydromorpho No Route: IV, Memoria ne (ANES) 10-24 Drug form: l 20:19: INJ, ONCE, Stop date: 10/24/20 15:19:00 CDT Calcium No 1,000 mL, Memor ia Chloride 10-24 Rate: 125 l 0.0014 20:07: ml/hr, MEQ/ML / 00 Infuse Potassium over: 8 Chloride hr, Route: 0.004 IV, Dosing MEQ/ML / Weight Sodium 99.2 kg, Chloride Total 0.103 Volume: MEQ/ML / 1,000, Sodium Start Lactate date: 0.028 10/24/20 MEQ/ML 15:07:00 Injectable CDT, Solution Duration: 30 day, Stop date: 11/23/20 15:06:00 CDT, 2.09, m2, 0 Acetaminoph No Notes: Max Memoria en 10-24 acetaminop l 20:07: hen = 4000 Hoang 00 mg/day (4 gm/day). (Same as: Tylenol) Ondansetron No Notes: Brad mariia 10-24 (Same as: l 20:07: Zofran) MEDICATION WASTE Product Size: 4 mg Product Wasted: 0 mg phenylephri No Route: IV, Memoria ne (ANES) 10-24 Drug form: l 19:03: INJ, ONCE, Stop date: 10/24/20 14:03:00 CDT Acetaminoph No 1,000 mg, M emoria en 10-24 Route: l 19:00: IVPB, Q6Hnow, Dosing Weight 99.2, kg, Start date: 10/24/20 14:00:00 CDT, Duration: 24 hr, Stop date: 10/25/20 8:00:00 CDT dexamethaso No Route: IV, Memoria ne (ANES) 10-24 Drug form: l 18:42: INJ, ONCE, Stop date: 10/24/20 13:42:00 CDT Tramadol No Notes: Not Mem oria 10-24 to exceed l 18:22: 400mg/day. (Same As: Ultram) Promethazin No Notes: Do M emoria e 10-24 not give l 18:22: IV push. (Same as: Phenergan) moxifloxaci No Route: IV, Memoria n (ANES) 10-24 Drug form: l 18:17: INJ, ONCE, Stop date: 10/24/20 13:17:00 CDT midazolam No Route: IV, Me moria (ANES) - Drug form: l 17:52: SOLN, ONCE, Stop date: 10/24/20 12:52:00 CDT lidocaine No Route: IV, Me moria (ANES) 4- Drug form: l 17:52: INJ, ONCE, Stop date: 10/24/20 12:52:00 CDT propofol No Route: IV, Mem oria (ANES) 10-24 Drug form: l 17:52: INJ, ONCE, Stop date: 10/24/20 12:52:00 CDT rocuronium No Route: IV, M emoria (ANES) 4- Drug form: l 17:52: INJ, ONCE, Stop date: 10/24/20 12:52:00 CDT fentaNYL No Route: IV, Mem oria (ANES) 10-24 Drug form: l 17:52: INJ, ONCE, Boyden 00 Stop date: 10/24/20 12:52:00 CDT dexmedetomi No Route: IV, Memoria dine (ANES) 10-24 Drug form: l 200 17:15: INJ, Start microgram date: 10/24/20 12:15:00 CDT, Stop date: 10/24/20 13:15:00 CDT ketAMINE No Route: IV, Mem oria (ANES) 10 10-24 Drug form: l mg 17:15: INJ, Start date: 10/24/20 12:15:00 CDT, Stop date: 10/24/20 13:15:00 CDT Isolyte S No Route: IV, Me moria PH 7.4 10-24 Total l (ANES) 1000 17:00: Volume: Her lópez mL 00 1,000, Start date: 10/24/20 12:00:00 CDT, Stop date: 10/24/20 13:00:00 CDT heparin No Notes: Memoria sodium, - porcine l porcine 13:28: heparin Boyden 2500 UNT/ML 00 Injectable Solution 72 HR No Notes: Memoria Scopolamine 10-24 Change l 0.0139 13:28: patch Hoang MG/HR 00 every 72 Transdermal hours Patch (Same as: Transderm- Scop) Ofirmev No Notes: Memoria - Infuse l 13:28: over 15 minutes Do not exceed 4gm/day of acetaminop hen MEDICATION WASTE Product Size: 1000 mg Product Wasted: ___ mg gabapentin No Notes: Memor ia 300 MG Oral 10-24 (Same as: l Capsule 13:27: Neurontin) Herm Acetaminoph No 1,000 mg, M emoria en 10-24 Route: PO, l 13:24: Drug form: Hoang 00 TAB, PRE OP, Dosing Weight 99.2, kg, Priority: NOW, Start date: 10/24/20 8:24:00 CDT, Duration: 1 doses or times gabapentin No 300 mg, Brad mariia 10-24 Route: PO, l 13:24: PRE OP, Boyden 00 Dosing Weight 99.2, kg, Priority: NOW, Start date: 10/24/20 8:24:00 CDT, Duration: 1 doses or times Tramadol No Notes: Not Mem oria 10-24 to exceed l 13:24: 400mg/day. (Same As: Ultram) 72 HR No 1 patch, Memoria Scopolamine 10-24 Route: l 0.0139 13:24: TOP, Drug Rohith n MG/HR 00 Form: Transdermal ERFILM, Patch Dosing Weight 99.2, kg, PRE OP, NOW, Start date: 10/24/20 8:24:00 CDT, Duration: 1 doses or times Xyzal Yes PO, QPM, 0 Memori a 19 Refill(s) l 13:02: Isolyte S No Notes: Memori a PH 7.4 10-24 (Same as: l 1,000 mL 12:48: Isolyte S Herm 00 PH7.4, Normosol-R PH 7.4, Plasma-Lyt e A ) buPROPion Yes 150 mg = 1 Me moria 150 mg/12 4-15 tab, PO, l hours (SR) 17:43: Daily, # Her lópez oral 00 60 tab, 1 tablet, Refill(s) extended release sertraline Yes 25 mg = 1 Me moria 25 mg oral 4-15 tab, PO, l tablet 17:43: Daily, # Boyden 00 30 tab, 1 Refill(s) { Yes 1 tab, PO, Memoria (Ethinyl 4-15 Daily, # l Estradiol 17:42: 28 tab, 0 Her lópez 0.035 MG / 00 Refill(s) norgestimat e 0.25 MG Oral Tablet) / 7 (Inert Ingredients 1 MG Oral Tablet) } Pack [Sprintec 28 Day] amitriptyli Yes 25 mg = 1 M ashanti ne 25 mg 4-15 tab, PO, l oral tablet 17:42: Bedtime, # Boyden 00 30 tab, 1 Refill(s) Vital Signs Vital Name Observation Time Observation Value Comments Source Temperature Oral 2020-10-27 98.9 F [facility] rmann (F) 17:02:00 Heart Rate 2020-10-27 [facility] Rohith n 17:02:00 Respitory Rate 2020-10-27 [facility] analia 17:02:00 Systolic (mm Hg) 2020-10-27 [facility] rmann 17:02:00 Diastolic (mm Hg) 2020-10-27 [facility] ermann 17:02:00 Temperature Oral 2020-10-27 99.1 F [facility] rmann (F) 13:01:00 Heart Rate 2020-10-27 [facility] Rohith n 13:01:00 Systolic (mm Hg) 2020-10-27 [facility] rmann 13:01:00 Diastolic (mm Hg) 2020-10-27 [facility] ermann 13:01:00 Respitory Rate 2020-10-27 [facility] Herm analia 13:01:00 Temperature Oral 2020-10-27 98.7 F [facility] rmann (F) 10:03:00 Heart Rate 2020-10-27 [facility] Rohith n 10:03:00 Systolic (mm Hg) 2020-10-27 [facility] rmann 10:03:00 Diastolic (mm Hg) 2020-10-27 [facility] ermann 10:03:00 Respitory Rate 2020-10-27 [facility] analia 04:40:00 Height 2020-10-24 152.4 cm [facility] Rohith n 12:55:00 Weight 2020-10-24 [facility] Rohith n 12:55:00 BMI Calculated 2020-10-24 [facility] 12:55:00 Heart Rate 2020-10-20 [facility] Rohith n 17:27:00 Systolic (mm Hg) 2020-10-20 [facility] rmann 17:27:00 Diastolic (mm Hg) 2020-10-20 [facility] ermann 17:27:00 Height 2020-10-19 152.4 cm [facility] Rohith n 18:29:00 Weight 2020-10-19 [facility] Rohith n 18:29:00 BMI Calculated 2020-10-19 [facility] 18:29:00 Systolic blood 2020-10-19 146 mm[Hg] Location: [facility]; [facility] 10:39:00 Position: [place] [facility] Diastolic blood 2020-10-19 87 mm[Hg] Location: [facility] 10:39:00 Position: [place] [facility] Body height 2020-10-19 60 [in_us] [facility] 10:39:00 [place] [facility] Weight 2020-10-19 218 [lb_av] [facility] 10:39:00 [place] [facility] Body mass index 2020-10-19 42.58 kg/m2 University o f (BMI) [Ratio] 10:39:00 [place] [facility] Body temperature 2020-10-19 96.2 [degF] Method: [facility] 10:39:00 Temporal [place] [facility] Heart Rate 2020-10-19 83 /min [facility] 10:39:00 [place] [facility] Body temperature 2020-09-07 96.7 [degF] Method: [facility] 09:55:00 Temporal [place] [facility] Heart Rate 2020-09-07 105 /min [facility] 09:55:00 [place] [facility] Systolic blood 2020-09-07 130 mm[Hg] Location: [facility]; [facility] 09:55:00 Position: [place] [facility] Sitting Diastolic blood 2020-09-07 85 mm[Hg] Location: [facility] 09:55:00 Position: [place] [facility] S[facility] Body height 2020-09-07 60 [in_us] [facility] 09:55:00 [place] [facility] Weight 2020-09-07 221.8 [lb_av] [facility] 09:55:00 [place] [facility] Body mass index 2020-09-07 43.32 kg/m2 University o f (BMI) [Ratio] 09:55:00 [place] [facility] Systolic blood 2020-07-20 128 mm[Hg] Location: [facility] 09:38:00 Position: [place] [facility] Sitting Diastolic blood 2020-07-20 86 mm[Hg] Location: [facility] 09:38:00 Position: [place] [facility] Sitting Body height 2020-07-20 60 [in_us] [facility] 09:38:00 [place] [facility] Weight 2020-07-20 214 [lb_av] [facility] 09:38:00 [place] [facility] Body mass index 2020-07-20 41.79 kg/m2 University o f (BMI) [Ratio] 09:38:00 [place] [facility] Body temperature 2020-07-20 97 [degF] Method: [facility] 09:38:00 Temporal [place] [facility] Heart Rate 2020-07-20 106 /min [facility] 09:38:00 [place] [facility] Procedures Procedure Date / Time Performing Source Performed Clinician . [facility] - COVID-19/SARS-Cov-2 2020-08-26 [facility] 00:00[facility]00 [place] [facility] . [facility] - COVID-19/SARS-Cov-2 2020-07-21 [facility] of 00:00:00 [place] [facility] [Q] COMPREHENSIVE METABOLIC PANEL 2020-07-20 [facility] W/eGFR (REFL) 00:00:00 [place] [facility] [Q] QUESTASSURED 25-OH VIT D, 2020-07-20 Un iversity of (D2,D3), LC/MS/MS 00:00:00 [place] [facility] [QL] CBC (INCLUDES DIFF/PLT) 2020-07-20 Uni versity of 00:00:00 [place] [facility] [QL] FOLATE, SERUM 2020-07-20 [facility] 00:00:00 [place] [facility] [QL] HEMOGLOBIN A1c 2020-07-20 [facility] o f 00:00:00 [place] [facility] [QL] IRON AND TOTAL IRON BINDING 2020-07-20 [facility] of [facility] 00:00:00 [place] [facility] [QL] LIPID PANEL 2020-07-20 [facility] 00:00:00 [place] [facility] [QL] PTH, INTACT (WITHOUT CALCIUM) 2020-07-20 [facility] 00:00:00 [place] [facility] [QL] TSH, 3RD GENERATION W/REFLEX 2020-07-20 [facility] TO FT4 00:00:00 [place] [facility] [QL] VITAMIN A (RETINOL) 2020-07-20 Univers ity of 00:00:00 [place] [facility] [QL] VITAMIN B1, WHOLE BLOOD 2020-07-20 Uni versity of 00:00:00 [place] [facility] [QL] VITAMIN B12 2020-07-20 University 00:00:00 [place] [facility] [QL] VITAMIN E (TOCOPHEROL) 2020-07-20 Univ ersity of 00:00:00 [place] [facility] Breast reduction, bilateral Brad rial Boyden section [facility] n EGD - Esophagogastroduodenoscopy [facility] Operation [facility] Dilation and curettage [facility] Plan of Care Planned Activity Planned Date Details Comments Source Future Scheduled 2020-08-29 . [facility] Test 00:00:00 COVID-19/SARS-Cov- Physician s 2 [code = . MILAGROSath - COVID-19/SARS-Cov- 2] Future Scheduled 2020-08-22 . [facility] Test 00:00:00 COVID-19/SARS-Cov- Physician s 2 [code = . [facility] - COVID-19/SARS-Cov- 2] Encounters Start End Encounter Admission Attending Care Care Encounter Source Date/Time Date/Time Type Type Clinicians Facility Department ID 2020-11-24 Outpatient [facility] [id number] [place] 01:03:55 [facility] 2020-11-12 Outpatient [facility] [id number] [place] 03:59:26 [facility] 2020-10-27 2020-10-27 Outpatient [facility] [id number] 11:19:00 15:25:[address] [place] [address] 2020-10-27 2020-10-24 Inpatient U [facility] ZULEYKA [address] [facility] 11:19:00 18:28:00 2020-10-19 2020-10-19 AppointMILAGROS [facility]ally [id number] [facility] 10:00:00 10:00:00 t; LINDA KELLY M.D. Invasive ity deion MCKEON M.D. [facility] ([facility]) ans 2020-10-06 2020-10-06 Outpatient [place] [facility] [id number] 14:04:29 14:04:29 Linda [address] [place] 2020-09-07 2020-09-07 AppointMILAGROS [place] [id number] [facility] 09:30:00 09:30:00 t; LINDA KELLY M.D. Invasive ity deion CMKEON M.D. [facility] ([facility]) ans 2020-07-20 2020-07-20 [id number] [facility] 09:00:00 09:00:00 t; LINDA KELLY M.D. lty - ity of Angi MCKEON Physici ans Results Test Description Test Time Test Comments Results Result Comments Source CHEM PANEL 2020-10-27 81 [facility] 09:33:00 CHEM PANEL 2020-10-27 7 [facility] 09:33:00 CHEM PANEL 2020-10-27 0.80 [facility] 09:33:00 CHEM PANEL 2020-10-27 135 [facility] 09:33:00 CHEM PANEL 2020-10-27 3.9 [facility] 09:33:00 CHEM PANEL 2020-10-27 103 [facility] 09:33:00 CHEM PANEL 2020-10-27 23 [facility] 09:33:00 CHEM PANEL 2020-10-27 12.9 [facility] 09:33:00 CHEM PANEL 2020-10-27 8.3 [facility] 09:33:00 CHEM PANEL 2020-10-27 91 [facility] 09:33:00 CHEM PANEL 2020-10-27 2.3 [facility] 09:33:00 CHEM PANEL 2020-10-26 137 [facility] 13:59:00 CHEM PANEL 2020-10-26 3.8 [facility] 13:59:00 CHEM PANEL 2020-10-26 105 [facility] 13:59:00 CHEM PANEL 2020-10-26 24 [facility] nn 13:59:00 CHEM PANEL 2020-10-26 11.8 [facility] nn 13:59:00 CHEM PANEL 2020-10-26 7.8 [facility] 13:59:00 CHEM PANEL 2020-10-26 2.6 [facility] 13:59:00 CHEM PANEL 2020-10-26 1.1 [facility] 13:59:00 CHEM PANEL 2020-10-26 113 [facility] 13:59:00 HEMATOLOGY 2020-10-26 7.4 [facility] 13:59:00 HEMATOLOGY 2020-10-26 3.24 [facility] 13:59:00 HEMATOLOGY 2020-10-26 9.2 [facility] 13:59:00 HEMATOLOGY 2020-10-26 27.7 [facility] 13:59:00 HEMATOLOGY 2020-10-26 85.5 [facility] 13:59:00 HEMATOLOGY 2020-10-26 13:59:00 Test Item Value Reference Range Interpretation Comme nts MCH (test code = MCH) 28.4 pg 27.0-31.0 [facility] TrjfmvlCGCINJKANO8448-28-11 13:59:0033.3[facility]annHEMATOLOGY 2020-10-26 13:59:0015.9[facility] LsemrjnHZUITUNJAT6446-19-75 13:59:16720Defrjzzv OeiftoiVETXLGBXEM8538-07-55 13:59:008.9[facility] KbadrrtCQXPUDNHUF3583-62-91 13:59:0071.4[facility] FdiukusQAGOMCRQYG1081-27-99 13:59:0020.7[facility] Hoang MIEQXDSECB7824-09-50 13:59:007.1[facility] UqqznptUCMUABVYAM2059-69-36 13:59:000.2 [facility] UtjqgzmVXOBVYPDCD4765-46-16 13:59:000.6[facility] HermannHEMATOLOGY 2020-10-26 13:59:005.3[facility] OekskpqSQVQWKCHLR0063-50-88 13:59:001.5[facility] JsixzojZESTTQBHRM2537-90-51 13:59:000.5[facility] HermannCHEM RFYCL8908-90-28 13:59:0089[facility]annCHEM IGCOW1261-66-90 13:59:007[facility]annCHEM IQFOH7939-45-88 13:59:000.60[facility]annCHEM BUIOX3245-15-51 09:24:12757 [facility]annCHE[facility] IRWXC8217-36-31 09:24:008[facility]annCHEM PANEL 2020-10-25 09:24:000.72[facility]annCHEM DPPDZ6760-78-41 09:24:76588Nqwafccg HermannCHEM LXBCE5854-69-28 09:24:004.2[facility]annCHEM RXQUQ8059-51-41 09:24:71094Wgydyfvs HermannCHEM LZMPL8794-80-58 09:24:0025[facility]annCHEM RWWEQ2036-87-20 09:24:007.9[facility]annCHE[facility] TZMKI3746-69-84 09:24:0010.2 [facility]annCHE[facility] HRBMM6058-61-66 09:24:01396Dspuszjo HermannHEMATOLOGY 2020-10-25 09:24:008.0[facility] RxwnmzrXIBTLHORCJ8232-24-43 09:24:004.54[facility] NmqkpwqRFEAWLIVHA9468-37-14 09:24:0012.8[facility] PputgfhBBKNDGPJMR9195-01-39 09:24:0038.4[facility] DwxaazhYYSTIRZTJG3984-99-68 09:24:0084.6[facility] ZBFPOPVIQB5971-12-41 09:24:00 Test Item Value Reference Range Interpretation Comments MCH (test code = MCH) 28.2 pg 27.0-31.0 [facility] HmbomfbBXGGVTNDBO2388-61-09 09:24:0033.4[facility]annHEMATOLOGY 2020-10-25 09:24:0015.5[facility] UzdkpdwTPRXLFIHPY5063-13-28 09:24:36186Pghaetbg TuxzbavVBSAVPZXUH0977-50-65 09:24:009.0[facility] LvqcrtyHHVCQSPSJV8517-79-91 09:24:0082.2[facility] IasjptkOQVOCYCKRD9105-22-42 09:24:0012.4[facility] XJUZPOPVBV9385-42-85 09:24:005.1[facility] BotytciPRJMHVVLOO6665-31-73 09:24:000.3 [facility] GquuvfcUVNSNVMIST3393-53-71 09:24:006.6[facility]annHEMATOLOGY 2020-10-25 09:24:001.0[facility] UqvdbkmQLGXMMRGAC3035-23-73 09:24:000.4[facility] HermannCHEM NNLET2238-11-90 16:44:0067[facility]annCHEM HSRUL2284-29-09 16:44:0020[facility]annCHEM VAJST3724-48-66 16:44:000.68[facility] HermannCHEM ZRINO1429-92-89 16:44:92862Dqxtybms HermannCHEM ZCWQR6474-69-90 16:44:004.8 [facility]annCHEM UPELP5088-56-36 16:44:13831Uzcpgiuh HermannCHEM PANEL 2020-10-20 16:44:0025[facility]annCHEM KERUQ7173-70-06 16:44:008.4[facility]annCHEM KHGPR7353-34-23 16:44:007.4[facility]annCHEM GPCSN2989-83-00 16:44:003.3[facility]annCHEM ZPCIV3033-61-04 16:44:0025[facility]annCHEM WTLAB1440-04-55 16:44:0011[facility] HermannCHEM ORTIA4432-98-98 16:44:0091 [facility]annCHE[facility] CIBHG1200-27-83 16:44:000.3[facility] HermannCHEM PANEL 2020-10-20 16:44:0013.8[facility] HermannCHEM NKGDQ1902-65-98 16:44:00 Test Item Value Reference Range Interpretation Comments B/C Ratio (test code = B/C Ratio) 29 1 6-25 [facility]annCHEM UGAQS8802-59-51 16:44:004.1[facility] HermannCHEM PANEL 2020-10-20 16:44:00 Test Item Value Reference Range Interpretation Comments A/G Ratio (test code = A/G Ratio) 0.8 1 0.7-1.6 [facility]annCHEM ZFODA1108-48-02 16:44:55814Iicutxli HermannHEMATOLOGY 2020-10-20 16:44:0070.4[facility] GkytttmLIEKJEQNUG3806-40-79 16:44:0022.0[facility] DhvtbkqWJAPMWOGZY4018-53-74 16:44:005.7[facility] XhohqbfDACVGIGWCQ5517-73-28 16:44:001.0[facility] VxsqmdnYVBFRIKBPQ7455-13-39 16:44:000.9[facility] WQQSYUKTUP5616-55-62 16:44:006.2[facility] CawgazfEGLSKHVSXL8297-21-01 16:44:001.9 [facility] WzragmfAIRXXJOWXX4914-50-27 16:44:000.5[facility] HermannHEMATOLOGY 2020-10-20 16:44:000.1[facility] UzhqdfbBXNODOCFND5990-92-41 16:44:000.1[facility] AslycqtYMTAVXDJTD4387-53-19 16:44:008.7[facility] OmawfdwCWCKBLOWJM3321-48-00 16:44:004.51[facility] QbgpduzIQRZGCMCXJ3137-78-72 16:44:0012.9[facility] KQACUXZRVL2841-96-50 16:44:0038.4[facility] PpgfeanLIFXSOUQEY3163-16-45 16:44:00 85.1[facility] WjhehtuXRWNUFUXAH1185-38-38 16:44:00 Test Item Value Reference Range Interpretation Comments MCH (test code = MCH) 28.7 pg 27.0-31.0 [facility] PfqnhnsBDRILPTDUP9955-37-77 16:44:0033.7[facility] HermannHEMATOLOGY 2020-10-20 16:44:0015.7[facility] FctartvAZUVSVEHCL9968-94-32 16:44:35622Roxvjqyw IgevmyuYRMMZCEOQB5768-52-30 16:44:009.4[facility] SrzsfdgWEZVJXDRSV1952-86-35 16:44:00 Test Item Value Reference Range Interpretation Comments PT (test code = PT) 13.2 s 12.0-14.7 [facility] YqcoaimXIKSWAVREN8840-52-94 16:44:00 Test Item Value Reference Range Interpretation Comments INR (test code = INR) 1.01 1 0.85-1.17 [facility] AwtfptvTSQEBUSQDG1033-92-70 16:44:00 Test Item Value Reference Range Interpretation Comments PTT (test code = PTT) 28.9 s 22.9-35.8 [facility] YyikvryKXKVSITIQR9159-64-39 16:44:00 Test Item Value Reference Range Interpretation Comments R-time (test code = R-time) 4.7 min 5.0-10.0 [facility] ZuxkbjeQPOJHGXSLW4405-84-86 16:44:00 Test Item Value Reference Range Interpretation Comments K-time (test code = K-time) 1.0 min 1.0-3.0 [facility]om[facility]zyOLPEYJCSSS0206-43-88 16:44:00 Test Item Value Reference Range Interpretation Comments Angle (test code = Angle) 75.1 degrees 53.0-72.0 [facility] CenterInkuktlDVYOPAZRFU9407-60-80 16:44:00 Test Item Value Reference Range Interpretation Comments Max Amp (test code = Max Amp) 74.5 mm 50.0-70.0 [facility] CenterTdfxykxEVGWPXFAQB8253-11-11 16:44:0014.6[facility] HermannHEMATOLOGY 2020-10-20 16:44:000.2[facility] XjldwtxTEYVAOICMQ9730-42-03 16:44:00 Test Item Value Reference Range Interpretation Comments Coag Index (test code 3.6 1 See_Comment [Auto mated message] The = Coag Index) system which g enerated this result transmit ned reference range : <=3.0. The reference range was not used to interpr et this result as idania l/abnormal. [facility] GkdfmeuWGQBJQMACY2162-99-48 16:44:00See Note (10/20/20 11:44 AM)[facility] TofrbsmVSCYKZAQXZ7288-20-52 16:44:00Not Detected (10/20/20 11:44 AM)[facility] OVMIOG[facility]FG3027-82-29 16:44:005.6[facility][] LIPID PANEL 2020-07-20 10:46:00 Test Item Value Reference Range Interpretation Comments CHOLESTEROL, TOTAL; 198 mg/dl <200 N Normal (test code = 2093-3) HDL CHOLESTEROL; 62 mg/dl > OR = 50 N Normal (test code = 2085-9) TRIGLYCERIDES; 130 mg/dl <150 N Normal (test code = 2571-8) LDL-CHOLESTEROL; 111 {MG/DL Reference r rick: Above High Threshold KAREN} <100 De sirable range (test code = <100 mg/[place] [address]-1) primary prevent ion; <70 mg/dL for patients with C HD or diabetic patien ts with > or = 2 C HD risk factors. L DL-C is now calculat ed using the Kim calculation, wh ich is a validated novel method providin g better accuracy than the Friedewald equation in the estimation of L DL-C. Paul SS et al . PEDRO. 2013;310( 19): 7275-2470 (http://educati on.Reimage. com/f aq/IPF737) CHOL/HDLC RATIO 3.2 {CALC} <5.0 N (test code = CHOL/HDLC RATIO) NON HDL CHOLESTEROL 136 {MG/DL <130 For radu ents with (test code = NON HDL KAREN} diabete s plus 1 CHOLESTEROL) major ASCVD ris k factor, treatin g to a non-HDL-C goa l of <100 mg/dL (LDL -C of <70 mg/dL) is considered a therapeutic opt ion. [facility][Q] COMPREHENSIVE METABOLIC PANEL W/eGFR (REFL) 2020-07-20 10:46:00 Test Item Value Reference Range Interpretation Comments GLUCOSE; Normal 87 mg/dl 65-139 N Non-fasting (test code = 1547-9) referen ce interval UREA NITROGEN (BUN) 14 mg/dl 7-25 N (test code = UREA NITROGEN (BUN)) CREATININE (test 0.71 mg/dl 0.50-1.10 N code = CREATININE) eGFR NON-AFR. 105 {ML/MIN/1.7} > OR = 60 N MALAWIAN (test code = eGFR NON-AFR. MALAWIAN) eGFR 122 {ML/MIN/1.7} > OR = 60 N MALAWIAN (test code = eGFR ) BUN/CREATININE RATIO NOT APPLICABLE 6-22 (test code = BUN/CREATININE RATIO) SODIUM (test code = 137 mmol/L 135-146 N SODIUM) POTASSIUM (test code 4.8 mmol/L 3.5-5.3 N = POTASSIUM) CHLORIDE (test code 102 mmol/L 98-110 N = CHLORIDE) CARBON DIOXIDE (test 29 mmol/L 20-32 N code = CARBON DIOXIDE) CALCIUM (test code = 9.2 mg/dl 8.6-10.2 N CALCIUM) PROTEIN, TOTAL (test 7.0 g/dl 6.1-8.1 N code = PROTEIN, TOTAL) ALBUMIN (test code = 3.9 g/dl 3.6-5.1 N ALBUMIN) GLOBULIN (test code 3.1 {G/DL CALC} 1.9-3.7 N = GLOBULIN) ALBUMIN/GLOBULIN 1.3 {CALC} 1.0-2.5 N RATIO (test code = ALBUMIN/GLOBULIN RATIO) BILIRUBIN, TOTAL; 0.6 mg/dl 0.2-1.2 N Normal (test code = 57116-2) ALKALINE PHOSPHATASE 103 u/l 31-125 N (test code = ALKALINE PHOSPHATASE) AST; Normal (test 16 u/l 10-30 N code = 1916-6) ALT; Normal (test 25 u/l 6-29 N code = 1742-6) [facility][QL] IRON AND TOTAL IRON BINDING CAPACITY 2020-07-20 10:46:00 Test Item Value Reference Range Interpretation Comments IRON, TOTAL (test code = 116 {mcg/dl} 40-190 N IRON, TOTAL) IRON BINDING CAPACITY (test 476 {mcg/dL ca} 250-450 code = IRON BINDING CAPACITY) % SATURATION (test code = % 24 {% CALC} 16-45 N SATURATION) [facility][] CBC (INCLUDES DIFF/PLT)2020-07-20 10:46:00 Test Item Value Reference Range Interpretation Comments WHITE BLOOD CELL COUNT 7.9 {Thousand/u} 3.8-10.8 N (test code = WHITE BLOOD CELL COUNT) RED BLOOD CELL COUNT (test 4.66 {Million/uL} 3.80-5.10 N code = RED BLOOD CELL COUNT) HEMOGLOBIN; Normal (test 12.8 g/dl 11.7-15.5 N code = 91995-7) HEMATOCRIT; Normal (test 40.6 % 35.0-45.0 N code = 4544-3) MCV; Normal (test code = 87.1 fL 80.0-100.0 N 787-2) MCHC; Below Low Threshold 31.5 g/dl 32.0-36.0 N (test code = 05459-0) RDW; Normal (test code = 14.1 % 11.0-15.0 N 788-0) PLATELET COUNT; Normal 393 {Thousand/u} 140-400 N (test code = 777-3) MPV; Normal (test code = 10.7 fL 7.5-12.5 N 60614-3) ABSOLUTE NEUTROPHILS (test 5475 {cells/uL} 1458-6356 N code = ABSOLUTE NEUTROPHILS) ABSOLUTE LYMPHOCYTES (test 1817 {cells/uL} 850-3900 N code = ABSOLUTE LYMPHOCYTES) ABSOLUTE MONOCYTES (test 482 {cells/uL} 200-950 N code = ABSOLUTE MONOCYTES) ABSOLUTE EOSINOPHILS (test 79 {cells/uL} 15-500 N code = ABSOLUTE EOSINOPHILS) ABSOLUTE BASOPHILS (test 47 {cells/uL} 0-200 N code = ABSOLUTE BASOPHILS) NEUTROPHILS (test code = 69.3 % N NEUTROPHILS) LYMPHOCYTES (test code = 23.0 % N LYMPHOCYTES) MONOCYTES; Normal (test 6.1 % N code = 53222-7) EOSINOPHILS; Normal (test 1.0 % N code = 53995-5) BASOPHILS; Normal (test 0.6 % N code = 72755-7) [facility][QL] PTH, INTACT (WITHOUT CALCIUM)2020-07-20 10:46:00 Test Item Value Reference Range Interpretation Comments PARATHYROID 72 pg/ml Interpretive Gu phani Intact HORMONE, INTACT PTH (test code = Calcium-------- PARATHYROID HORMONE, INTACT) -------Norm al Parathyroid Normal NormalHypoparat hyroidism Low or Low Norm al LowHyperparathy roidism Primary Normal or High High Secondary High Normal or Low Tertiary High HighNon-Parathy roid Hypercalcemia Low or Low Normal High [facility][QL] FOLATE, [id number] 10:46:00 Test Item Value Reference Range Interpretation Comments FOLATE, SERUM (test 10.5 ng/ml N Referenc e Range code = FOLATE, Low: SERUM) <3.4 Borderline: 3.4-5.4 Normal: >5.4 [facility][QL] VITAMIN [id number] 10:46:00 Test Item Value Reference Range Interpretation Comments VITAMIN B12 (test code = VITAMIN 409 pg/ml 200-1100 N B12) [facility][QL] TSH, 3RD GENERATION W/REFLEX TO [id number] 10:46:00 Test Item Value Reference Range Interpretation Comments TSH, 3RD GENERATION 1.28 {MIU/L} N Referenc e Range W/REFLEX TO FT4 (test > or code = TSH, 3RD = 20 Years GENERATION W/REFLEX 0.40-4.5 0 TO FT4) Range s First trim marguerite 0.26-2.66 Second trimest er 0.55-2.73 Third trimester 0.43-2.91 [facility][QL] HEMOGLOBIN [id number] 10:46:00 Test Item Value Reference Range Interpretation Comments HEMOGLOBIN A1c; 5.4 {% of <5.7 N For the purp ose of Normal (test code total} screening for the = 4548-4) presence ofdiab etes: <5.7% Con sistent with the absenc e of diabetes5.7-6.4 % Consistent with increased risk for diabetes (prediabetes)> or =6.5% Consistent wit h diabetes This a ssay result is consi stent with a decrease d riskof diabetes. Curre ntly, no consensus exist s regarding use ofhemoglobin A1 c for diagnosis of di abetes in children. Ac cording to [place] [employer] (ADA)guidelines , hemoglobin A1c <7.0% represents optimalcontrol in non- di abetic patients. Differentmetric s may apply to specif ic patient populat ions. Standards of Me dical Care in Diabete s(ADA). [facility][QL] VITAMIN E (TOCOPHEROL)2020-07-20 10:46:00 Test Item Value Reference Range Interpretation Comments ALPHA-TOCOPHEROL 13.3 mg/L Reference R rick (test code = 5.7-19.9 mg/L ALPHA-TOCOPHEROL) Levels of alpha-tocopherol <5 mg/L are consistent with Vitamin E deficiency in adults.Vitamin supplementation within 24 hours prior to blood draw may affect the accuracy of results. T his test was developed and i ts analytical perf ormance characteristics have been determined by [employer]. It has not been cleared or approved by theFDA. This as say has been validated pursu ant to the CLIA regulation s and is used for clinic al purposes. RXHU-LZZXH-JZMTHF 1.3 mg/L <4.4 This test was developed and BETZAIDA (test code = its analyt ical performance XNWX-EYZAM-EAYFJW characteri stics have been BETZAIDA) determined by [facility]. It has not been cleared or approved by theFDA. This as say has been validated pursu ant to the CLIA regulation s and is used for clinic al purposes. [facility][QL] VITAMIN B1, WHOLE [id number] 10:46:00 Test Item Value Reference Range Interpretation Comments VITAMIN B1, WHOLE 174 nmol/L 78-185 Vitamin rivers pplementation BLOOD (test code = within 24 hours prior VITAMIN B1, WHOLE toblood dr woodruff may affect BLOOD) the accuracy of results. This test was developed and its analyti karen performance characteristics have been determined by [employer]. It has not been cleared or approved by theFDA. This assay has been validated pursuant to the CLIA reg ulations and is used for clinical purposes. [facility][QL] VITAMIN A (RETINOL)2020-07-20 10:46:00 Test Item Value Reference Range Interpretation Comments VITAMIN A (test 67 {mcg/dl} 38-98 Clin Chem Vol. 34.No.8. code = VITAMIN A) [id number] 8. 1997Vitamin supplementation within 24 hours prior to blood draw may affect the accuracy of results. T his test was developed a nd its analytical perf ormance characteristics have been determined by [employer]. It has not been cleared or approved by theFDA. This assay has been validated pursuant to the CLIA reg ulations and is used for clinical purposes. [facility][Q] QUESTASSURED 25-OH VIT D, (D2,D3), LC/MS/MS 2020-07-20 10:46:00 Test Item Value Reference Range Interpretation Comments VITAMIN D, 34 ng/ml 30-100 (Note) Vitamin D, 25-Hydroxy 25-OH, TOTAL reports concent rations of two (test code = common forms, 2 5-OHD2 and VITAMIN D, 25-OHD3. 25-OHD 3 indicates both 25-OH, TOTAL) endogenous pro duction and supplementation . 25-OHD2 is an indicator of ex ogenous sources such as diet o r supplementation . Therapy is based on measu rement of Total 25-OHD, with le vels <20 ng/mL indicative of V itamin D deficiency, whi le levels between 20 ng/m L and 30 ng/mL suggest insuffi ciency. Optimal levels are > or = 30 ng/mL. Vitamin D is fa t-soluble and therefore inadv ertent or intentional ing estion of excessively hig h amounts could be toxic. Studi es in children and adults sugg est blood levels would need to e xceed 150 ng/mL before there i s any concern. Jt YOUSSEF, Beryl WELLS, Karina chang SANDOVAL, et al. Evaluation, yariel atment and prevention of v itamin D deficiency: an Endocrine Society clinica l practice guideline. J Cl in Endocrinol Metab. 2011;96( 7):1911-30. For additional info rmation, please refer to http://[employer] [place]/faq/FAQ19 9 VITAMIN D, 34 ng/ml Reference range : Not established 25-OH, D3 (test code = VITAMIN D, 25-OH, D3) VITAMIN D, <4.0 (Note)Reference range: Not 25-OH, D2 established Thi s test was (test code = developed and i ts analytical VITAMIN D, performancechar acteristics have 25-OH, D2) been determined by [employer]. It has not beencle ared or approved by the [place] Food and Drug Administration. Thisassay has been validated pursuant to the CLIA regulation and is usedfor Clinical purpos es.MDed [address] [place] [address],[address] [id number] 00MichaeSocorro Blum Note 1 No te 1 For additional info rmation, please refer to http://[employer] [place]/faq/FAQ19 9 (This link is being provided for informational/e ducational purposes only.) [facility] W/AUTO [id number] 07:35:00 Test Item Value Reference Range Interpretation Comments WHITE BLOOD CELL (test code = WBC) 8.1 K/mm3 6.6-12.1 N RED BLOOD CELL (test code = RBC) 4.07 M/mm3 3.45-5.01 N HEMOGLOBIN (test code = HGB) 11.4 g/dL 10.7-13.9 N HEMATOCRIT (test code = HCT) 37.2 % 32.1-42.1 N MEAN CELL VOLUME (test code = MCV) 91 fL 84.1-94.8 N MEAN CELL HGB (test code = MCH) 28.0 pg 27-35 N MEAN CELL HGB CONCETRATION (test 30.6 gm/dL 32.2-34.1 L code = MCHC) RED CELL DISTRIBUTION WIDTH (test 16.0 % 12.4-16.5 N code = RDW) PLATELET COUNT (test code = PLT) 482 K/mm3 133-385 H IMMATURE PLATELET FRACTION (test 0.0 % 0.0-10.8 N code = IPF) MEAN PLATELET VOLUME (test code = 11.2 fl 9.1-12.7 N MPV) NEUTROPHIL % (test code = NT%) 59.1 % 56.5-79.4 N LYMPHOCYTE % (test code = LY%) 28.4 % 14.3-34.3 N MONOCYTE % (test code = MO%) 8.9 % 5.1-10.4 N EOSINOPHIL % (test code = EO%) 2.1 % 0.1-3.0 N BASOPHIL % (test code = BA%) 1.0 % 0.1-1.0 N NEUTROPHIL # (test code = NT#) 4.8 K/mm3 LYMPHOCYTE # (test code = LY#) 2.3 K/mm3 MONOCYTE # (test code = MO#) 0.7 K/mm3 EOSINOPHIL # (test code = EO#) 0.17 K/mm3 BASOPHIL # (test code = BA#) 0.1 K/mm3 RBC MORPHOLOGY REQUIRED (test code NORMAL NORMAL = RBCM) PLATELET MORPHOLOGY REQUIRED (test NORMAL NORMAL code = PLTMR) - US PELVIS [id number] 00:02:00 Patient Name: OG MUNOZ Unit No: [id number] EXAMS: CPT CODE: [id number] US PELVIS COMPLETE 02313 PROCEDURE: PELVIC ULTRASOUND INDICATION: bleeding. 18 days ago. D C 6 days ago. COMPARISON: 04/13/2019 pelvic ultrasound. TRANSABDOMINAL SCAN: Uterus measures 14.3 x 6.9 x 7.2 cm with heterogeneous endometrial stripe thickness up to 2.2 cm. Heterogeneous endometrial fluid is seen. Minimal vascularity of the endometrium seen with Doppler analysis. Posterior round hypoechoic heterogeneous mass once again seen measuring 3.5 x 3.3 x 3.5 cm. Anterior uterine myometrial mass once again seen measuring 2.5 x 1.5 x 2 cm. Neither ovary is visualized. TRANSVAGINAL SCAN: Not performed. IMPRESSION: 1. Thickened heterogeneous endometrium with fluid within consistent with given history of hemorrhage. Mild vascularity is present within. Retained products of conception remains in the differential. 2. Uterine fibroids. 3.Nonvisualization of the ovaries. SL: SG-H at 0002 Reported and signed by: Grant Bearden MD CC: Genevieve Rodriguez MD; Emmie Anne MD Technologist: Juanita Hamilton RDMS Probe: Trnscrbd D/ (0002) t.SDR.SG9 Orig PrintD/T: S: 04/21/2019 (0006) [facility] NAME: OG MUNOZ Radiology Department PHYS: CELIA. - Emmie Anne [address] M : 1980 AGE: 39 SEX: F [place] [address] LOC: Jeanie2654 A PHONE #: [phone] EXAM DATE: 04/20/2019 STATUS: ADMIN FAX #: [phone] RAD NO: Page 1 Signed Report Patient Name: OG MUNOZ Unit No: [id number] EXAMS: CPT CODE: [id number] US PELVIS COMPLETE 25552 <Continued> [facility] NAME: OG MUNOZ Radiology Department PHYS: CELIA. Emmie Cameron [address] M : 1980 AGE: 39 SEX: F [place], [place] [address] LOC: F.2654 A PHONE #: [phone] EXAM DATE: 04/20/2019 STATUS: ADM IN FAX #: [phone] RAD NO: Page 2 Signed ReportCBC W/AUTO [id number] 18:28:00 Test Item Value Reference Range Interpretation Comments WHITE BLOOD CELL (test code = WBC) 7.4 K/mm3 6.6-12.1 N RED BLOOD CELL (test code = RBC) 4.53 M/mm3 3.45-5.01 N HEMOGLOBIN (test code = HGB) 12.6 g/dL 10.7-13.9 N HEMATOCRIT (test code = HCT) 40.5 % 32.1-42.1 N MEAN CELL VOLUME (test code = MCV) 89 fL 84.1-94.8 N MEAN CELL HGB (test code = MCH) 27.8 pg 27-35 N MEAN CELL HGB CONCETRATION (test 31.1 gm/dL 32.2-34.1 L code = MCHC) RED CELL DISTRIBUTION WIDTH (test 16.4 % 12.4-16.5 N code = RDW) PLATELET COUNT (test code = PLT) 502 K/mm3 133-385 H IMMATURE PLATELET FRACTION (test 0.0 % 0.0-10.8 N code = IPF) MEAN PLATELET VOLUME (test code = 10.8 fl 9.1-12.7 N MPV) MANUAL DIFF REQUIRED (test code = YES MDIFF) RBC MORPHOLOGY REQUIRED (test code NORMAL NORMAL = RBCM) PLATELET MORPHOLOGY REQUIRED (test NORMAL NORMAL code = PLTMR) WBC [id number] 18:28:00 Test Item Value Reference Range Interpretation Comments TOTAL CELLS COUNTED (test code = 100 #CELLS TCC) SEGMENTED NEUTROPHILS (test code = 75 % 56.5-79.4 N SEG) LYMPHOCYTE (test code = LYMPH) 12 % 20-40 L ATYPICAL LYMPH (test code = 3 % ALYMPH) MONOCYTE (test code = MON) 7 % 0-8 N EOSINOPHIL (test code = EOS) 2 % 0-4 N BASOPHIL (test code = BASO) 1 % 0-2 N PLATELET ESTIMATE (test code = ADEQUATE ADEQ PLTEST) PLATELET MORPHOLOGY (test code = NORMAL NORMAL PLTMORPH) UA RFLX MICR CULT IF [id number] 18:19:00 Test Item Value Reference Range Interpretation Comments UA COLOR (test code = YELLOW YELLOW COLU) UA APPEARANCE (test code Slightly-Cloudy CLEAR = APPU) UA GLUCOSE DIPSTICK (test NEGATIVE NEG code = DGLUU) UA BILIRUBIN DIPSTICK NEGATIVE NEG (test code = BILU) UA KETONE DIPSTICK (test TRACE NEG A code = KETU) UA SPECIFIC GRAVITY (test 1.017 1.001-1.035 N code = SGU) UA BLOOD DIPSTICK (test 3+ NEG A code = EDMUNDO) UA PH DIPSTICK (test code 6.0 5-9 = DIMAS) UA PROTEIN DIPSTICK (test NEGATIVE NEG code = PROU) UA UROBILINIOGEN DIPSTICK NEGATIVE mg/dL NEG (test code = URO) UA NITRITE DIPSTICK (test NEG NEG code = MEMO) UA LEUKOCYTE ESTERASE 1+ NEG A DIPSTICK (test code = LEUU) UA WBC (test code = WBCU) 41-50 #/hpf NONE SEEN A UA RBC (test code = RBCU) TOO NUMEROUS TO CNT NONE SEEN A #/hpf UA EPITHELIAL CELLS (test NONE SEEN #/HPF RARE-FEW code = EPIU) UA MUCUS (test code = RARE NONE SEEN MUCU) Indication for culture: Suprapubic PainCBC W/AUTO [id number] 18:05:00 Test Item Value Reference Range Interpretation Comments WHITE BLOOD CELL (test code = WBC) 7.4 K/mm3 6.6-12.1 N RED BLOOD CELL (test code = RBC) 4.53 M/mm3 3.45-5.01 N HEMOGLOBIN (test code = HGB) 12.6 g/dL 10.7-13.9 N HEMATOCRIT (test code = HCT) 40.5 % 32.1-42.1 N MEAN CELL VOLUME (test code = MCV) 89 fL 84.1-94.8 N MEAN CELL HGB (test code = MCH) 27.8 pg 27-35 N MEAN CELL HGB CONCETRATION (test 31.1 gm/dL 32.2-34.1 L code = MCHC) RED CELL DISTRIBUTION WIDTH (test 16.4 % 12.4-16.5 N code = RDW) PLATELET COUNT (test code = PLT) 502 K/mm3 133-385 H IMMATURE PLATELET FRACTION (test 0.0 % 0.0-10.8 N code = IPF) MEAN PLATELET VOLUME (test code = 10.8 fl 9.1-12.7 N MPV) MANUAL DIFF REQUIRED (test code = YES MDIFF) RBC MORPHOLOGY REQUIRED (test code NORMAL = RBCM) PLATELET MORPHOLOGY REQUIRED (test NORMAL code = PLTMR) WBC [id number] 18:05:00 Test Item Value Reference Range Interpretation Comments SEGMENTED NEUTROPHILS (test code = SEG) % 56.5-79.4 LYMPHOCYTE (test code = LYMPH) % 20-40 CBC W/AUTO [id number] 18:05:00 Test Item Value Reference Range Interpretation Comments WHITE BLOOD CELL (test code = WBC) 7.4 K/mm3 6.6-12.1 N RED BLOOD CELL (test code = RBC) 4.53 M/mm3 3.45-5.01 N HEMOGLOBIN (test code = HGB) 12.6 g/dL 10.7-13.9 N HEMATOCRIT (test code = HCT) 40.5 % 32.1-42.1 N MEAN CELL VOLUME (test code = MCV) 89 fL 84.1-94.8 N MEAN CELL HGB (test code = MCH) 27.8 pg 27-35 N MEAN CELL HGB CONCETRATION (test 31.1 gm/dL 32.2-34.1 L code = MCHC) RED CELL DISTRIBUTION WIDTH (test 16.4 % 12.4-16.5 N code = RDW) PLATELET COUNT (test code = PLT) 502 K/mm3 133-385 H IMMATURE PLATELET FRACTION (test 0.0 % 0.0-10.8 N code = IPF) MEAN PLATELET VOLUME (test code = 10.8 fl 9.1-12.7 N MPV) MANUAL DIFF REQUIRED (test code = YES MDIFF) RBC MORPHOLOGY REQUIRED (test code NORMAL = RBCM) PLATELET MORPHOLOGY REQUIRED (test NORMAL code = PLTMR) WBC [id number] 18:05:00 Test Item Value Reference Range Interpretation Comments SEGMENTED NEUTROPHILS (test code = SEG) % 56.5-79.4 LYMPHOCYTE (test code = LYMPH) % 20-40 PRODUCTS OF [id number] 13:51:00 RUN DATE: 04/17/19 [facility] PAGE 1 RUN TIME: 1654 Specimen Inquiry RUN USER: INTERFACE PATIENT: [facility]UN[facility] [id number] AGE/SX: 39/F ROOM: [facility] RE04/14/19REG DR: Genevieve Rodriguez MD : 76 BED: A DIS: 04/16/19 STATUS: DIS IN TLOC: SPEC #: [id number] RECD: 04/14/19 STATUS: SOUAshley REQ #: [id number] GISELA: 04/14/19- SUBM DR: Genevieve Rodriguez MD ENTERED: 04/14/19 SP TYPE: POC[ OTHR DR: ORDERED: LEVEL IV/3 CODES: F12117 - ENDOMETRIUM, NO PROCEDURES: LEVEL IV (Incomplete) TISSUES: ENDOMETRIUM, NOS - POC X 3 CLINICAL HISTORY 39 year old, bleeding (wpd)FINAL DIAGNOSIS Specimen #1 endometrial products: - blood Specimen #2 endometrial products: - degenerating placental tissue - thick-walled uterine vessels with thrombus and organization - inflamed decidual tissue Specimen #3 endometrial products and curettings: - placental implantation site - inflamed decidua - blood COMMENT: Features consistent with retained products of conception and implantation site. CPT code(s):09815 x3 cds/kr dt: 04/17/19 GROSS DESCRIPTION ANATOMIC SOURCE OF TISSUE (per Requisition): 1. Endometrial products (1 of 3) 2. Endometrial products (2 of 3) 3. Endometrial products and curettings (3 of 3) Each specimen is labeled with the patient's name and medical record number. CONTINUED ON NEXT PAGE RUN DATE: 04/17/19 [facility] PAGE 2 RUN TIME: 1653 Specimen Inquiry RUN USER: INTERFACE SPEC #: [id number] PATIENT: OG MUNOZ #[id number] (Continued)-------- ---- GROSS DESCRIPTION (Continued) Specimen #1 is designated "endometrial products" and consists of multiple portions of dark red blood clots in a suction collection container aggregating to 8 x 6 x 6 cm. Group Home [employer] sections are submitted in A1 and A2. Specimen #2 is designated "endometrial products" and consists of multiple portions of red tissue and blood clots in a suction collection container aggregating to 6 x 5 x 5 cm. Group Home Manager sections are submitted in B1 and B2.Specimen #3 is designated "endometrial products and curettings" and consists of multiple portions of red tissue in a suction collection container and on a piece of Telfa pad aggregating to 5 x 3 x 1.7 cm. Group Home Manager sections are submitted in C1 and C2. hz/wpd 04/14/19 @ 4036 MICROSCOPIC DESCRIPTION Specimen #1 consists of blood alone. Specimen #2 consists of inflamed decidual tissue and large thick-walled vessels with thrombus in varying degrees of organization. Degenerating "ghost" villi are present with perivillous fibrin deposition. farrah/kr dt: 04/17/19 Signed AdarshBrandonaristides Saul 04/17/19 1351 END OF REPORT [id number] 09:12:00 Test Item Value Reference Range Interpretation Comments HEMOGLOBIN (test code = 8.9 g/dL 10.7-13.9 L Resu lts verified by HGB) repeat analysis CBC W/AUTO [id number] 09:38:00 Test Item Value Reference Range Interpretation Comments WHITE BLOOD CELL (test 12.3 K/mm3 6.6-12.1 H code = WBC) RED BLOOD CELL (test 2.29 M/mm3 3.45-5.01 L code = RBC) HEMOGLOBIN (test code = 6.3 g/dL 10.7-13.9 LL RESU LTS CALLED TO HGB) NAYE FALL.VANESSA D BACK & CONFIRME D? YES.BY PJ 04/15/19936.Results verified by rep eat analysis HEMATOCRIT (test code = 21.0 % 32.1-42.1 L HCT) MEAN CELL VOLUME (test 92 fL 84.1-94.8 N code = MCV) MEAN CELL HGB (test code 27.5 pg 27-35 N = MCH) MEAN CELL HGB 30.0 gm/dL 32.2-34.1 L CONCETRATION (test code = MCHC) RED CELL DISTRIBUTION 17.4 % 12.4-16.5 H WIDTH (test code = RDW) PLATELET COUNT (test 396 K/mm3 133-385 H code = PLT) IMMATURE PLATELET 0.0 % 0.0-10.8 N FRACTION (test code = IPF) MEAN PLATELET VOLUME 11.0 fl 9.1-12.7 N (test code = MPV) NEUTROPHIL % (test code 79.9 % 56.5-79.4 H = NT%) LYMPHOCYTE % (test code 13.0 % 14.3-34.3 L = LY%) MONOCYTE % (test code = 5.9 % 5.1-10.4 N MO%) EOSINOPHIL % (test code 0.4 % 0.1-3.0 N = EO%) BASOPHIL % (test code = 0.2 % 0.1-1.0 N BA%) NEUTROPHIL # (test code 9.8 K/mm3 = NT#) LYMPHOCYTE # (test code 1.6 K/mm3 = LY#) MONOCYTE # (test code = 0.7 K/mm3 MO#) EOSINOPHIL # (test code 0.05 K/mm3 = EO#) BASOPHIL # (test code = 0.0 K/mm3 BA#) RBC MORPHOLOGY REQUIRED NORMAL NORMAL (test code = RBCM) PLATELET MORPHOLOGY NORMAL NORMAL REQUIRED (test code = PLTMR) HGB [id number] 13:25:00 Test Item Value Reference Range Interpretation Comments HEMOGLOBIN (test code = HGB) 7.5 g/dL 10.7-13.9 L HEMATOCRIT (test code = HCT) 26.8 % 32.1-42.1 L UR HCG [id number] 01:09:00 Test Item Value Reference Range Interpretation Comments UR HCG QUAL (test code = HCGQLU) POSITIVE - US PELVIS [id number] 21:36:00 Patient Name: OG MUNOZ Unit No: [id number] EXAMS: CPT CODE: [id number] US PELVIS COMPLETE 99830 TRANSABDOMINAL PELVIC ULTRASOUND INDICATION: Rule out retained POC. Hypertension, fever, vaginal bleed. TECHNIQUE: Transabdominal pelvic ultrasound was performed with corbin scale and Doppler images. COMPARISONS: CT abdomen pelvis 04/13/2019 FINDINGS: TRANSABDOMINALPELVIC ULTRASOUND: The uterus measures 19.4 x 7.5 x 9 cm. There is a posterior intramural to submucosal fibroid that measures 3.8 x 4.4 x 4.9 cm in the fundus. There is a 2.4 x 2.4 x 2.9 cm anterior intramural fibroid in the uterine fundus. The endometrial cavity is distended with complex fluid measuring up to 4.5 cm thick. The endometrial stripe appears relatively thin measuring approximately 0.5 cm thick. There is no focal mass within the endometrium detected. The left ovary measures 1.7 x 3 x 2.2 cm. The right ovary measures 2.3 x 2 x 3.4 cm. The imaged urinary bladder reveals no acute process. Visualization of the bladder is limited due to shadowing. IMPRESSION: 1. There is complex fluid within the endometrial cavity measuring up to 4.5 cm thick. The endometrial stripe appears relatively thin as visualized measuring up to 0.5 cm thick. Due to the presence of complex fluid, I cannot exclude retained products of conception. 2. There are 2 uterine fibroids, the largest measures 3.8 x 4.4 x 4.9 cm within the intramural to submucosal posterior fundus. at 2136 Reported and signed by: Jonnathan Palafox DO CC: Genevieve Rodriguez MD; Tremayne Silver MD Technologist: Diana Ann RDMS Probe: Trnscrbd D/ (2135) t.SDR.[email or web address] Orig Print D/T: S: 04/13/2019 (2138) [facility] NAME: OG MUNOZ Radiology Department PHYS: Tremayne Persaud MD [address] : 1980 AGE: 39 SEX: F [place], [place] [address] LOC: JeanieERS PHONE #: [phone] EXAM DATE: 04/13/2019 STATUS: REG ER FAX #: [phone] RADNO: Page 1 Signed Report Patient Name:OG MUNOZ Unit No: [id number] EXAMS: CPT CODE: [id number] US PELVIS COMPLETE 38580 <Continued> [facility] NAME: OG MUNOZ Radiology Department PHYS: PATSH. - Tremayne Silver MD [address] : 1980 AGE: 39 SEX: F [place] [address] LOC: ANETA PHONE #: [phone] EXAM DATE: 04/13/2019 STATUS: REG ER FAX #: [phone] RAD NO: Page 2 Signed Report- CT ABD PELVIS [id number] 20:09:00 Patient Name: OG MUNOZ Unit No: [id number] EXAMS: CPT CODE: [id number] CT ABD PELVIS W/CONT 36113 CT ABDOMEN AND PELVIS WITH CONTRAST INDICATION: Abdominal pain, possible retained products of conception. TECHNIQUE: 125 mL Isovue-300 Intravenous contrast was administered followed by CT imaging of the abdomen and pelvis with axial, coronal and sagittal reconstructions. CT imaging performed at this location utilizes radiation dose optimization technique which includes one or more of the followin) Automated exposure control; 2) Adjustment of the mA and/or kV according to patient's size; 3) Use of iterative reconstruction techniques. DLP (mGy-cm): 2063 COMPARISONS: None. FINDINGS: There is no acute osseous fracture or dislocation. There are surgical changes of section. There is no organized fluid collection or retained foreign body inthe soft tissues. The aorta reveals no aneurysm or acute process. The inferior vena cava reveals no acute process. The lung bases reveal no acute process. There is no acute hepatic process. The gallbladder and bile ducts reveal no acute process. The pancreas reveals no acute process. The spleen reveals no acute process. The adrenal glands reveal no acute process or mass.There is a 5 mm benign cyst in the inferior pole right kidney that requires no follow-up. There is no acute renal process. The urinary bladder reveals no acute process. The uterus demonstrates a moderate amount of hemorrhagic fluid distending the endometrial canal. There are 4 uterine fibroids, the largest is in the left fundus, is intramural and measures 4.[address] [facility] NAME: MUNOZOG MONTALVO Radiology Department PHYS: CANAL. - Shae Michaels MD [address] : 1980 AGE: 39SEX: F [place] [address] LOC: JeanieERS PHONE #: [phone] EXAM DATE: 04/13/2019 STATUS: REG ER FAX #: [phone] RAD NO: Page 1 Signed Report 1 Patient Name: OG MUNOZ Unit No: [id number] EXAMS: CPT CODE: [id number] CT ABD PELVIS W/CONT 81950 <Continued> There is no intra-abdominal free fluid. There is no intra-abdominal free gas. There is no lymphadenopathy. There is no evidence of acute appendicitis. There is no bowel obstruction. There is no bowel mucosal thickening or inflammation. IMPRESSION: 1. The uterus demonstrates a moderate amount of hemorrhagic fluid distending the endometrial canal. Retained products of conception cannot be excluded. 2. There are 4 uterine fibroids, the largestis in the left fundus, is intramural and measures 4.3 cm. 3. No infectious process detected.Normal bowel. at 2008 Reported and signed by: Jonnathan Palafox DO CC: Shae Michaels MD; Genevieve Rodriguez MD Technologist: Axel Montemayor, RT, CT CTDI: 20.16 DLP: 2063.76 Trnscrbd D/ (2008) [email or web address] [facility] [place] [facility] NAME: MUNOZCHAR MONTALVOFER Radiology Department PHYS: Shae Giron MD [address] : 1980 AGE: 39 SEX: F [place], [place] [address] [facility] #: [phone] EXAM DATE: 04/13/2019 STATUS: [facility] ER FAX #: [phone] RAD NO: Page 2 Signed Report 1 Patient Name: OG MUNOZ Unit No: [id number] EXAMS: CPT CODE: [id number] CT ABD PELVIS W/CONT 09926 <Continued> Orig Print D/T: S: 04/13/2019 (2011) [facility] [place] [facility] NAME: OG MUNOZ Radiology Department PHYS: CANALShae Garsia MD [address] : 1980 AGE: 39 SEX: F [place], [place] [address] [id number] LOC: ANETA PHONE #: [phone] EXAM DATE: 04/13/2019 STATUS: SAMIRA ER FAX #: [phone] RAD NO: Page 3 Signed Report 1PROTHROMBIN [id number] 17:40:00 Test Item Value Reference Range Interpretation Comments PROTHROMBIN TIME PATIENT (test code 13.0 secs 10.4-12.4 H = PTP) Specimen Comment: CLEAN CATCHIS PATIENT ON ANTICOAGULANTS ? NINTERNATIONAL NORMAL [id number] 17:40:00 Test Item Value Reference Range Interpretation Comments INTERNATIONAL NORMAL 1.17 The INR is to be used RATIO (test code = INR) only for monitoring oral anticoagulantth erapy. INDICATION INR VALUE 1. Prophylaxis inc luding high risk rivers rgery 2.0 - 2.52. Deep venous thr ombosis. Pulmonary em bolism. Atrial fibrilla tion or bioprostheti c heart valves 2.0 - 3.03. Mechanical hear t valves or recurren t systemic emboli sm. 3.0 - 3.5 Specimen Comment: CLEAN CATCHIS PATIENT ON ANTICOAGULANTS ? NTHROMBOPLASTIN TIME [id number] 17:40:00 Test Item Value Reference Range Interpretation Comments THROMBOPLASTIN TIME PARTIAL (test 30.0 secs 22-38 N code = PTT) Specimen Comment: CLEAN CATCHIS PATIENT ON ANTICOAGULANTS ? NCOMPREHENSIVE METABOLIC [id number] 17:24:00 Test Item Value Reference Range Interpretation Comments SODIUM (test code = NA) 139 mEq/L 135-145 N POTASSIUM (test code = K) 3.8 mEq/L 3.5-5.0 N CHLORIDE (test code = CL) 105 mEq/L 100-115 N CARBON DIOXIDE (test code = CO2) 24 mEq/L 22-31 N ANION GAP (test code = GAP) 13.70 10-20 N GLUCOSE (test code = GLU) 84 mg/dL 65-110 N BLOOD UREA NITROGEN (test code = 7 mg/dL 7-18 N BUN) GLOMERULAR FILTRATION RATE (test 92 ml/min >60 N code = GFR) CREATININE (test code = CREAT) 0.7 mg/dL 0.5-1.0 N TOTAL PROTEIN (test code = PROT) 6.1 gm/dL 6.3-8.2 L ALBUMIN (test code = ALB) 2.9 gm/dL 3.4-4.8 L CALCIUM (test code = CA) 8.2 mg/dL 8.4-10.2 L BILIRUBIN TOTAL (test code = 0.5 mg/dL 0.2-1.0 N BILT) SGOT/AST (test code = AST) 19 units/L 15-37 N SGPT/ALT (test code = ALT) 27 units/L 12-78 N ALKALINE PHOSPHATASE TOTAL (test 142 units/L 46-116 H code = ALKP) Specimen Comment: CLEAN CATCHLIVER [id number] 17:24:00 Test Item Value Reference Range Interpretation Comments BILIRUBIN DIRECT (test code = BILD) 0.1 mg/dL <0.2 N Specimen Comment: CLEAN [id number] 17:24:00 Test Item Value Reference Range Interpretation Comments TROPONIN-I (test code = TROPI) <0.017 ng/mL <0.056 N Specimen Comment: CLEAN CATCHUA RFLX MICR CULT IF [id number] 17:15:00 Test Item Value Reference Range Interpretation Comments UA COLOR (test code = RED YELLOW COLU) UA APPEARANCE (test code CLOUDY CLEAR A = APPU) UA GLUCOSE DIPSTICK (test TRACE NEGATIVE A code = DGLUU) UA BILIRUBIN DIPSTICK 2+ NEGATIVE (test code = BILU) UA KETONE DIPSTICK (test TRACE NEGATIVE code = KETU) UA SPECIFIC GRAVITY (test 1.015 1.001-1.035 N code = SGU) UA BLOOD DIPSTICK (test 3+ NEGATIVE A code = EDMUNDO) UA PH DIPSTICK (test code 7.5 5-9 = DIMAS) UA PROTEIN DIPSTICK (test 2+ NEGATIVE code = PROU) UA UROBILINIOGEN DIPSTICK 2.0 EU/dL <=1.0 A (test code = URO) UA NITRITE DIPSTICK (test POSITIVE NEGATIVE A code = MEMO) UA LEUKOCYTE ESTERASE 3+ NEGATIVE A DIPSTICK (test code = LEUU) UA WBC (test code = WBCU) 15-20 #/hpf NONE SEEN A UA RBC (test code = RBCU) TOO NUMEROUS TO CNT NONE SEEN A #/hpf UA EPITHELIAL CELLS (test FEW #/HPF RARE-FEW code = EPIU) UA BACTERIA (test code = MANY #/hpf NONE SEEN A BACU) Specimen Comment: CLEAN CATCHIndication for culture: Suprapubic PainUA RFLX MICR CULT IF [id number] 17:13:00 Test Item Value Reference Range Interpretation Comments UA COLOR (test code = COLU) RED YELLOW UA APPEARANCE (test code = APPU) CLOUDY CLEAR A UA GLUCOSE DIPSTICK (test code = TRACE NEGATIVE A DGLUU) UA BILIRUBIN DIPSTICK (test code = 2+ NEGATIVE BILU) UA KETONE DIPSTICK (test code = TRACE NEGATIVE KETU) UA SPECIFIC GRAVITY (test code = 1.015 1.001-1.035 N SGU) UA BLOOD DIPSTICK (test code = EDMUNDO) 3+ NEGATIVE A UA PH DIPSTICK (test code = DIMAS) 7.5 5-9 UA PROTEIN DIPSTICK (test code = 2+ NEGATIVE PROU) UA UROBILINIOGEN DIPSTICK (test 2.0 EU/dL <=1.0 A code = URO) UA NITRITE DIPSTICK (test code = POSITIVE NEGATIVE A MEMO) UA LEUKOCYTE ESTERASE DIPSTICK 3+ NEGATIVE A (test code = LEUU) UA WBC (test code = WBCU) #/hpf NONE SEEN UA EPITHELIAL CELLS (test code = #/HPF RARE-FEW EPIU) Specimen Comment: CLEAN CATCHIndication for culture: Suprapubic PainCBC W/AUTO [id number] 17:12:00 Test Item Value Reference Range Interpretation Comments WHITE BLOOD CELL (test code = WBC) 13.5 K/mm3 6.6-12.1 H RED BLOOD CELL (test code = RBC) 3.15 M/mm3 3.45-5.01 L HEMOGLOBIN (test code = HGB) 8.8 g/dL 10.7-13.9 L HEMATOCRIT (test code = HCT) 29.1 % 32.1-42.1 L MEAN CELL VOLUME (test code = MCV) 92 fL 84.1-94.8 N MEAN CELL HGB (test code = MCH) 27.9 pg 27-35 N MEAN CELL HGB CONCETRATION (test 30.2 gm/dL 32.2-34.1 L code = MCHC) RED CELL DISTRIBUTION WIDTH (test 17.1 % 12.4-16.5 H code = RDW) PLATELET COUNT (test code = PLT) 428 K/mm3 133-385 H IMMATURE PLATELET FRACTION (test 0.0 % 0.0-10.8 N code = IPF) MEAN PLATELET VOLUME (test code = 10.7 fl 9.1-12.7 N MPV) NEUTROPHIL % (test code = NT%) 84.0 % 56.5-79.4 H LYMPHOCYTE % (test code = LY%) 10.1 % 14.3-34.3 L MONOCYTE % (test code = MO%) 5.0 % 5.1-10.4 L EOSINOPHIL % (test code = EO%) 0.2 % 0.1-3.0 N BASOPHIL % (test code = BA%) 0.3 % 0.1-1.0 N NEUTROPHIL # (test code = NT#) 11.4 K/mm3 LYMPHOCYTE # (test code = LY#) 1.4 K/mm3 MONOCYTE # (test code = MO#) 0.7 K/mm3 EOSINOPHIL # (test code = EO#) 0.03 K/mm3 BASOPHIL # (test code = BA#) 0.0 K/mm3 RBC MORPHOLOGY REQUIRED (test code NORMAL NORMAL = RBCM) PLATELET MORPHOLOGY REQUIRED (test NORMAL NORMAL code = PLTMR) Specimen Comment: CLEAN CATCH- XR CHEST 1 [id number] 17:05:00 Patient Name: GO MUNOZ Unit No: [id number] EXAMS: CPT CODE: [id number] XR CHEST 1 V 57286 CHEST 1 VIEW: 04/13/2019 COMPARISON: NONE CLINICAL HISTORY: CODE SEPSIS FINDINGS: Cardiopericardial silhouette is borderline in size. No infiltrates or pulmonary edema is present. There is no pneumothorax. IMPRESSION: No acute pulmonary disease. at 1705 Reported and signed by: Tk Black MD CC: Shae Michaels MD; Genevieve Rodriguez MD Technologist: Axel Montemayor, RT, CT Trnscrbd D/ (9094) [id number] Orig Print D/T: S: 04/13/2019 (9459) [facility] NAME: OG MUNOZ Radiology Department PHYS: Shae Giron MD [address] : 1980 AGE: 39 SEX: F [place], [place] [address] LOC: ANETA PHONE #: [phone] EXAM DATE: 04/13/2019 STATUS: REG ER FAX #: [phone] RAD NO: Page 1 Signed ReportLACTIC ACID POC 2019-04-13 16:51:00 Test Item Value Reference Range Interpretation Comments LACTIC ACID POC (test code = 0.72 MMOL/L 0.90-1.70 L LACTP) [id number] 10:29:00 Test Item Value Reference Range Interpretation Comments GLUBED (test code = GLUBED) 70 mg/dL 65-110 N HGB [id number] 07:16:00 Test Item Value Reference Range Interpretation Comments HEMOGLOBIN (test code = HGB) 8.0 g/dL 10.7-13.9 L HEMATOCRIT (test code = HCT) 25.8 % 32.1-42.1 L CBC W/AUTO [id number] 02:46:00 Test Item Value Reference Range Interpretation Comments WHITE BLOOD CELL (test 9.6 K/mm3 6.6-12.1 N code = WBC) RED BLOOD CELL (test 2.38 M/mm3 3.45-5.01 L code = RBC) HEMOGLOBIN (test code = 6.8 g/dL 10.7-13.9 LL RESU LTS CALLED TO HGB) CHAI LopezREAD BACK & CONFIRME D? Y.BY F.LAB.LGL0 04/05/19 0244.RESULTS VERIFIED BY REP EAT ANALYSIS HEMATOCRIT (test code = 21.9 % 32.1-42.1 L HCT) MEAN CELL VOLUME (test 92 fL 84.1-94.8 N code = MCV) MEAN CELL HGB (test code 28.6 pg 27-35 N = MCH) MEAN CELL HGB 31.1 gm/dL 32.2-34.1 L CONCETRATION (test code = MCHC) RED CELL DISTRIBUTION 17.4 % 12.4-16.5 H WIDTH (test code = RDW) PLATELET COUNT (test 151 K/mm3 133-385 N code = PLT) IMMATURE PLATELET 0.0 % 0.0-10.8 N FRACTION (test code = IPF) MEAN PLATELET VOLUME 12.5 fl 9.1-12.7 N (test code = MPV) NEUTROPHIL % (test code 71.2 % 56.5-79.4 N = NT%) LYMPHOCYTE % (test code 18.5 % 14.3-34.3 N = LY%) MONOCYTE % (test code = 8.2 % 5.1-10.4 N MO%) EOSINOPHIL % (test code 1.0 % 0.1-3.0 N = EO%) BASOPHIL % (test code = 0.3 % 0.1-1.0 N BA%) NEUTROPHIL # (test code 6.8 K/mm3 = NT#) LYMPHOCYTE # (test code 1.8 K/mm3 = LY#) MONOCYTE # (test code = 0.8 K/mm3 MO#) EOSINOPHIL # (test code 0.10 K/mm3 = EO#) BASOPHIL # (test code = 0.0 K/mm3 BA#) RBC MORPHOLOGY REQUIRED NORMAL NORMAL (test code = RBCM) PLATELET MORPHOLOGY NORMAL NORMAL REQUIRED (test code = PLTMR) HGB [id number] 08:00:00 Test Item Value Reference Range Interpretation Comments HEMOGLOBIN (test code = 6.6 g/dL 10.7-13.9 LL RESU LTS CALLED TO HGB) EARLELIConcetta.READ ALICJA CK & CONFIRMED? Y.[facility] 0800.RESULTS VE RIFIED BY REPEAT KLAUDIA SIS HEMATOCRIT (test code = 21.1 % 32.1-42.1 L HCT) HGB [id number] 22:22:00 Test Item Value Reference Range Interpretation Comments HEMOGLOBIN (test code = HGB) 7.2 g/dL 10.7-13.9 L HEMATOCRIT (test code = HCT) 22.3 % 32.1-42.1 L CBC W/AUTO [id number] 12:30:00 Test Item Value Reference Range Interpretation Comments WHITE BLOOD CELL 14.9 K/mm3 6.6-12.1 H (test code = WBC) RED BLOOD CELL (test 2.16 M/mm3 3.45-5.01 L code = RBC) HEMOGLOBIN (test 6.0 g/dL 10.7-13.9 LL RESULTS JESSICA IFIED BY code = HGB) REPEAT ANALYSIS RESULTS CALLED TO ASHLI Herrera READ BACK & CON FIRMED? .YBY F.LAB.[facility] 04/03/19 1225. HEMATOCRIT (test 19.1 % 32.1-42.1 LL RESULTS KAREN LED TO code = HCT) CHIKA Herrera.READ BACK & CONFIRMED? Y.BY F.LAB.[facility] 04/03 1230.RESULTS VE RIFIED BY REPEAT KLAUDIA SIS MEAN CELL VOLUME 88 fL 84.1-94.8 N (test code = MCV) MEAN CELL HGB (test 27.8 pg 27-35 N code = MCH) MEAN CELL HGB 31.4 gm/dL 32.2-34.1 L CONCETRATION (test code = MCHC) RED CELL 19.0 % 12.4-16.5 H DISTRIBUTION WIDTH (test code = RDW) PLATELET COUNT (test 180 K/mm3 133-385 N code = PLT) IMMATURE PLATELET 0.0 % 0.0-10.8 N FRACTION (test code = IPF) MEAN PLATELET VOLUME 12.3 fl 9.1-12.7 N (test code = MPV) NEUTROPHIL % (test 79.4 % 56.5-79.4 N code = NT%) LYMPHOCYTE % (test 12.1 % 14.3-34.3 L code = LY%) MONOCYTE % (test 7.9 % 5.1-10.4 N code = MO%) EOSINOPHIL % (test 0.1 % 0.1-3.0 N code = EO%) BASOPHIL % (test 0.2 % 0.1-1.0 N code = BA%) NEUTROPHIL # (test 11.8 K/mm3 code = NT#) LYMPHOCYTE # (test 1.8 K/mm3 code = LY#) MONOCYTE # (test 1.2 K/mm3 code = MO#) EOSINOPHIL # (test 0.01 K/mm3 code = EO#) BASOPHIL # (test 0.0 K/mm3 code = BA#) RBC MORPHOLOGY NORMAL NORMAL REQUIRED (test code = RBCM) PLATELET MORPHOLOGY NORMAL NORMAL REQUIRED (test code = PLTMR) [id number] 19:23:00 Test Item Value Reference Range Interpretation Comments GLUBED (test code = GLUBED) 85 mg/dL 65-110 N [id number] 14:10:00 Test Item Value Reference Range Interpretation Comments GLUBED (test code = GLUBED) 87 mg/dL 65-110 N [id number] 10:43:00 Test Item Value Reference Range Interpretation Comments GLUBED (test code = GLUBED) 100 mg/dL 65-110 N [id number] 06:55:00 Test Item Value Reference Range Interpretation Comments GLUBED (test code = GLUBED) 78 mg/dL 65-110 N COMPREHENSIVE METABOLIC [id number] 06:28:00 Test Item Value Reference Range Interpretation Comments SODIUM (test code = NA) 140 mEq/L 135-145 N POTASSIUM (test code = K) 4.0 mEq/L 3.5-5.0 N CHLORIDE (test code = CL) 107 mEq/L 100-115 N CARBON DIOXIDE (test code = CO2) 21 mEq/L 22-31 L ANION GAP (test code = GAP) 16.10 10-20 N GLUCOSE (test code = GLU) 78 mg/dL 65-110 N BLOOD UREA NITROGEN (test code = 7 mg/dL 7-18 N BUN) GLOMERULAR FILTRATION RATE (test 110 ml/min >60 N code = GFR) CREATININE (test code = CREAT) 0.6 mg/dL 0.5-1.0 N TOTAL PROTEIN (test code = PROT) 5.5 gm/dL 6.3-8.2 L ALBUMIN (test code = ALB) 2.3 gm/dL 3.4-4.8 L CALCIUM (test code = CA) 9.0 mg/dL 8.4-10.2 N BILIRUBIN TOTAL (test code = 0.3 mg/dL 0.2-1.0 N BILT) SGOT/AST (test code = AST) 15 units/L 15-37 N SGPT/ALT (test code = ALT) 12 units/L 12-78 N ALKALINE PHOSPHATASE TOTAL (test 182 units/L 46-116 H code = ALKP) CBC W/AUTO [id number] 06:02:00 Test Item Value Reference Range Interpretation Comments WHITE BLOOD CELL (test code = WBC) 6.5 K/mm3 6.6-12.1 L RED BLOOD CELL (test code = RBC) 3.47 M/mm3 3.45-5.01 N HEMOGLOBIN (test code = HGB) 9.5 g/dL 10.7-13.9 L HEMATOCRIT (test code = HCT) 29.9 % 32.1-42.1 L MEAN CELL VOLUME (test code = MCV) 86 fL 84.1-94.8 N MEAN CELL HGB (test code = MCH) 27.4 pg 27-35 N MEAN CELL HGB CONCETRATION (test 31.8 gm/dL 32.2-34.1 L code = MCHC) RED CELL DISTRIBUTION WIDTH (test 18.5 % 12.4-16.5 H code = RDW) PLATELET COUNT (test code = PLT) 180 K/mm3 133-385 N IMMATURE PLATELET FRACTION (test 0.0 % 0.0-10.8 N code = IPF) MEAN PLATELET VOLUME (test code = 13.3 fl 9.1-12.7 H MPV) NEUTROPHIL % (test code = NT%) 64.8 % 56.5-79.4 N LYMPHOCYTE % (test code = LY%) 24.2 % 14.3-34.3 N MONOCYTE % (test code = MO%) 9.4 % 5.1-10.4 N EOSINOPHIL % (test code = EO%) 0.8 % 0.1-3.0 N BASOPHIL % (test code = BA%) 0.5 % 0.1-1.0 N NEUTROPHIL # (test code = NT#) 4.2 K/mm3 LYMPHOCYTE # (test code = LY#) 1.6 K/mm3 MONOCYTE # (test code = MO#) 0.6 K/mm3 EOSINOPHIL # (test code = EO#) 0.05 K/mm3 BASOPHIL # (test code = BA#) 0.0 K/mm3 RBC MORPHOLOGY REQUIRED (test code NORMAL NORMAL = RBCM) PLATELET MORPHOLOGY REQUIRED (test NORMAL NORMAL code = PLTMR) [id number] 03:30:00 Test Item Value Reference Range Interpretation Comments GLUBED (test code = GLUBED) 71 mg/dL 65-110 N [id number] 22:11:00 Test Item Value Reference Range Interpretation Comments GLUBED (test code = GLUBED) 125 mg/dL 65-110 H AG HEPATITIS B [id number] 20:02:00 Test Item Value Reference Range Interpretation Comments AG HEPATITIS B SURFACE (test code NONREACTIVE NONREACTIVE = HBSAG) IS CONSENT FORM SIGNED FOR HIV TESTING? YAB HEPATITIS C [id number] 20:02:00 Test Item Value Reference Range Interpretation Comments AB HEPATITIS C (test code = NONREACTIVE NONREACTIVE HCVAB) SIGNAL TO CUTOFF (test code = 0.11 <0.80 N CUTOFF) IS CONSENT FORM SIGNED FOR HIV TESTING? YAB [id number] 20:02:00 Test Item Value Reference Range Interpretation Comments AB TREPONEMA (test code = TREPAB) NONREACTIVE NONREACTIVE IS CONSENT FORM SIGNED FOR HIV TESTING? YAB HIV 1 20:02:00 Test Item Value Reference Range Interpretation Comments AB HIV 1 2 (test NONREACTIVE NONREACTIVE Done by [facility] code = [id number]) 4th Gen HIV Ag/Ab Combo Screen IS CONSENT FORM SIGNED FOR HIV TESTING? YAG HEPATITIS B [id number] 19:20:00 Test Item Value Reference Range Interpretation Comments AG HEPATITIS B SURFACE (test code NONREACTIVE NONREACTIVE = HBSAG) IS CONSENT FORM SIGNED FOR HIV TESTING? [facility] HEPATITIS C [id number] 19:20:00 Test Item Value Reference Range Interpretation Comments AB HEPATITIS C (test code = HCVAB) NONREACTIVE SIGNAL TO CUTOFF (test code = CUTOFF) <0.80 IS CONSENT FORM SIGNED FOR HIV TESTING? [facility] [id number] 19:20:00 Test Item Value Reference Range Interpretation Comments AB TREPONEMA (test code = TREPAB) NONREACTIVE NONREACTIVE IS CONSENT FORM SIGNED FOR HIV TESTING? YAB HIV 1 19:20:00 Test Item Value Reference Range Interpretation Comments AB HIV 1 2 (test code = [id number]) NONREACTIVE IS CONSENT FORM SIGNED FOR HIV TESTING? [facility]IVER [id number] 19:01:00 Test Item Value Reference Range Interpretation Comments TOTAL PROTEIN (test code = PROT) 5.4 gm/dL 6.3-8.2 L ALBUMIN (test code = ALB) 2.2 gm/dL 3.4-4.8 L BILIRUBIN TOTAL (test code = 0.3 mg/dL 0.2-1.0 N BILT) BILIRUBIN DIRECT (test code = <0.1 mg/dL <0.2 N BILD) SGOT/AST (test code = AST) 16 units/L 15-37 N SGPT/ALT (test code = ALT) 13 units/L 12-78 N ALKALINE PHOSPHATASE TOTAL (test 174 units/L 46-116 H code = ALKP) [id number] 19:01:00 Test Item Value Reference Range Interpretation Comments GLUCOSE (test code = GLU) 143 mg/dL 65-110 H URIC [id number] 19:01:00 Test Item Value Reference Range Interpretation Comments URIC ACID (test code = URIC) 4.3 mg/dL 2.6-6.0 N CBC W/AUTO [id number] 18:28:00 Test Item Value Reference Range Interpretation Comments WHITE BLOOD CELL (test code = WBC) 5.4 K/mm3 6.6-12.1 L RED BLOOD CELL (test code = RBC) 3.29 M/mm3 3.45-5.01 L HEMOGLOBIN (test code = HGB) 9.0 g/dL 10.7-13.9 L HEMATOCRIT (test code = HCT) 28.3 % 32.1-42.1 L MEAN CELL VOLUME (test code = MCV) 86 fL 84.1-94.8 N MEAN CELL HGB (test code = MCH) 27.4 pg 27-35 N MEAN CELL HGB CONCETRATION (test 31.8 gm/dL 32.2-34.1 L code = MCHC) RED CELL DISTRIBUTION WIDTH (test 18.3 % 12.4-16.5 H code = RDW) PLATELET COUNT (test code = PLT) 198 K/mm3 133-385 N IMMATURE PLATELET FRACTION (test 0.0 % 0.0-10.8 N code = IPF) MEAN PLATELET VOLUME (test code = 13.3 fl 9.1-12.7 H MPV) NEUTROPHIL % (test code = NT%) 71.1 % 56.5-79.4 N LYMPHOCYTE % (test code = LY%) 18.9 % 14.3-34.3 N MONOCYTE % (test code = MO%) 8.5 % 5.1-10.4 N EOSINOPHIL % (test code = EO%) 0.7 % 0.1-3.0 N BASOPHIL % (test code = BA%) 0.4 % 0.1-1.0 N NEUTROPHIL # (test code = NT#) 3.8 K/mm3 LYMPHOCYTE # (test code = LY#) 1.0 K/mm3 MONOCYTE # (test code = MO#) 0.5 K/mm3 EOSINOPHIL # (test code = EO#) 0.04 K/mm3 BASOPHIL # (test code = BA#) 0.0 K/mm3 RBC MORPHOLOGY REQUIRED (test code NORMAL NORMAL = RBCM) PLATELET MORPHOLOGY REQUIRED (test NORMAL NORMAL code = PLTMR) UR PROTEIN/CREATININE [id number] 01:57:00 Test Item Value Reference Range Interpretation Comments UR PROTEIN RANDOM (test code = 9.5 mg/dL PROTU) UR CREATININE RANDOM (test 30.6 mg/dL code = CREATU) PROTEIN/CREATININE RATIO (test 310.0 mg/gcrea <200 H code = P/CRATIO) COMPREHENSIVE METABOLIC [id number] 01:57:00 Test Item Value Reference Range Interpretation Comments SODIUM (test code = NA) 142 mEq/L 135-145 N POTASSIUM (test code = K) 4.3 mEq/L 3.5-5.0 N CHLORIDE (test code = CL) 106 mEq/L 100-115 N CARBON DIOXIDE (test code = CO2) 22 mEq/L 22-31 N ANION GAP (test code = GAP) 18.60 10-20 N GLUCOSE (test code = GLU) 81 mg/dL 65-110 N BLOOD UREA NITROGEN (test code = 4 mg/dL 7-18 L BUN) GLOMERULAR FILTRATION RATE (test 110 ml/min >60 N code = GFR) CREATININE (test code = CREAT) 0.6 mg/dL 0.5-1.0 N TOTAL PROTEIN (test code = PROT) 5.6 gm/dL 6.3-8.2 L ALBUMIN (test code = ALB) 2.3 gm/dL 3.4-4.8 L CALCIUM (test code = CA) 8.7 mg/dL 8.4-10.2 N BILIRUBIN TOTAL (test code = 0.2 mg/dL 0.2-1.0 N BILT) SGOT/AST (test code = AST) 17 units/L 15-37 N SGPT/ALT (test code = ALT) 14 units/L 12-78 N ALKALINE PHOSPHATASE TOTAL (test 189 units/L 46-116 H code = ALKP) URINALYSIS [id number] 01:25:00 Test Item Value Reference Range Interpretation Comments UA COLOR (test code = COLU) STRAW YELLOW UA APPEARANCE (test code = CLEAR CLEAR APPU) UA GLUCOSE DIPSTICK (test code NEGATIVE NEG = DGLUU) UA BILIRUBIN DIPSTICK (test NEGATIVE NEG code = BILU) UA KETONE DIPSTICK (test code NEGATIVE NEG = KETU) UA SPECIFIC GRAVITY (test code 1.005 1.001-1.035 N = SGU) UA BLOOD DIPSTICK (test code = NEG NEG EDMUNDO) UA PH DIPSTICK (test code = 6.0 5-9 DIMAS) UA PROTEIN DIPSTICK (test code NEGATIVE NEG = PROU) UA UROBILINIOGEN DIPSTICK NEGATIVE mg/dL NEG (test code = URO) UA NITRITE DIPSTICK (test code NEG NEG = MEMO) UA LEUKOCYTE ESTERASE DIPSTICK 3+ NEG A (test code = LEUU) UA WBC (test code = WBCU) 3-5 #/hpf NONE SEEN A UA RBC (test code = RBCU) 0-2 #/hpf NONE SEEN UA EPITHELIAL CELLS (test code RARE #/HPF RARE-FEW = EPIU) UA BACTERIA (test code = BACU) MODERATE /HPF RARE-FEW A URINE SAMPLE: CLEAN CATCHCBC W/AUTO [id number] 01:13:00 Test Item Value Reference Range Interpretation Comments WHITE BLOOD CELL (test code = WBC) 5.9 K/mm3 6.6-12.1 L RED BLOOD CELL (test code = RBC) 3.50 M/mm3 3.45-5.01 N HEMOGLOBIN (test code = HGB) 9.5 g/dL 10.7-13.9 L HEMATOCRIT (test code = HCT) 29.5 % 32.1-42.1 L MEAN CELL VOLUME (test code = MCV) 84 fL 84.1-94.8 L MEAN CELL HGB (test code = MCH) 27.1 pg 27-35 N MEAN CELL HGB CONCETRATION (test 32.2 gm/dL 32.2-34.1 N code = MCHC) RED CELL DISTRIBUTION WIDTH (test 15.9 % 12.4-16.5 N code = RDW) PLATELET COUNT (test code = PLT) 213 K/mm3 133-385 N IMMATURE PLATELET FRACTION (test 0.0 % 0.0-10.8 N code = IPF) MEAN PLATELET VOLUME (test code = 13.0 fl 9.1-12.7 H MPV) NEUTROPHIL % (test code = NT%) 64.4 % 56.5-79.4 N LYMPHOCYTE % (test code = LY%) 24.0 % 14.3-34.3 N MONOCYTE % (test code = MO%) 10.0 % 5.1-10.4 N EOSINOPHIL % (test code = EO%) 0.9 % 0.1-3.0 N BASOPHIL % (test code = BA%) 0.5 % 0.1-1.0 N NEUTROPHIL # (test code = NT#) 3.8 K/mm3 LYMPHOCYTE # (test code = LY#) 1.4 K/mm3 MONOCYTE # (test code = MO#) 0.6 K/mm3 EOSINOPHIL # (test code = EO#) 0.05 K/mm3 BASOPHIL # (test code = BA#) 0.0 K/mm3 RBC MORPHOLOGY REQUIRED (test code NORMAL NORMAL = RBCM) PLATELET MORPHOLOGY REQUIRED (test NORMAL NORMAL code = PLTMR) - DUP VEIN UNI [id number] 15:17:00 Patient Name: OG MUNOZ Unit No: [id number] EXAMS: CPT CODE: [id number] [place] [address] RIGHT LOWER EXTREMITY DUPLEX VENOUS DOPPLER ULTRASOUND, 03/06/2019 COMPARISON: None CLINICAL HISTORY: RT LEG PAIN FINDINGS: Sonographic evaluation of the right leg was performed. There is normal Doppler flow and venous compressibility throughout. No definite sonographic evidence of deep venous thrombosis is seen. CONCLUSION: No definite sonographic evidence ofdeep venous thrombosis in the right leg. at 1517 Reported and signed by: Tk Black MD CC: Genevieve Rodriguez MD Technologist: Diandra Sanchez RDMS Probe: Trnscrbd D/ (1517) [id number] Orig Print D/T: S: 03/06/2019 (1520) [facility] NAME: OG MUNOZ Radiology Department PHYS: Genevieve Pozo MD [address] M : 1980 AGE: 39 SEX: F [place], [place] [address] LOC: BRADEN PHONE #: [phone] EXAM DATE: 03/06/2019 STATUS: REG CLI FAX #: [phone] RAD NO: Page 1 Signed Report Patient Name: OG MUNOZ Unit No: [id number] EXAMS: CPT CODE: [id number] [place] [address] <Continued> [facility] NAME: OG MUNOZ Radiology Department PHYS: [email or web address].[email or web address] - Genevieve Rodriguez MD [address] M : [birth year] AGE: 39 SEX: F [place], [place] [address] LOC: F.RAD PHONE #: [phone] EXAM DATE: 03/06/2019 STATUS: REG CLI FAX #: [phone] RAD NO: Page 2 Signed Report
[2020-11-24 22:24] LABS: Urine Blood Trace-intact (Negative); Urine Glucose Negative (Negative); Urine Protein Trace (Negative); Urine Specific Gravity >=1.030 (1.005-1.030)
[2020-11-24 22:39] LABS: Basophils % 1.3 % (0-1.3); Hematocrit 40.2 % (36.0-45.0); MPV 10.6 fL (7.6-11.3); RBC Red Blood Cell Count 4.79 M/uL (3.86-4.86)
[2020-11-24 22:46] LABS: Potassium 3.6 mmol/L (3.5-5.1)
[2020-11-24 22:53] LABS: Calcium Oxalate Crystals- Ur MANY (NONE SEEN); Urine Bacteria 20-50 /HPF (<20); Urine Mucus 3+ /HPF (NONE SEEN); Urine RBC <5 /HPF (NONE SEEN)
[2020-11-24] MEDS ORDERED: NA CHLORIDE 0.9% 1,000 ML ONE (23:08)
--- NOTE | 2020-11-25 00:17 | EDPHYS ---
Physician Documentation [facility] Name: Tash Duenas Age: 40 yrs Sex: Female : 1980 Arrival Date: 11/24/2020 Time: 19:42 Bed 13 Private MD: ED Physician Ever Pete HPI: 11/25 00:19 This 40 yrs old Female presents to ER via Ambulatory with complaints of kb Possible dehyrdation. 00:19 The patient presents with urinary symptoms. Onset: The symptoms/episode began/occurred kb yesterday. Modifying factors: The symptoms are alleviated by nothing, the symptoms are aggravated by nothing. Associated signs and symptoms: Pertinent positives: urinary frequency. Severity of symptoms: At their worst the symptoms were mild, moderate, in the emergency department the symptoms are unchanged. The patient has not experienced similar symptoms in the past. The patient has not recently seen a physician. Pt reports she had a gastric bypass one month ago. States she had trouble drinking water at first, now she is able to but today felt faint and had some muscle cramps. States she has also had urinary frequency, small amounts and dark urine. came in because she believes she is dehydrated. . 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 Flu vaccine is up to date. - Social history:: Smoking status: Patient denies any tobacco usage or history of. ROS: 11/25 00:18 Constitutional: Negative for fever, chills, and weight loss. kb : Positive for urinary symptoms, urinary frequency, small amounts. Neuro: Positive for "felt faint". All other systems are negative. Exam: 00:19 Constitutional: This is a well developed, well nourished patient who is awake, alert, kb and in no acute distress. Head/Face: Normocephalic, atraumatic. ENT: Moist Mucous membranes Cardiovascular: Regular rate and rhythm with a normal S1 and S2. No gallops, murmurs, or rubs. No pulse deficits. Respiratory: Respirations even and unlabored. No increased work of breathing, no retractions or nasal flaring. Abdomen/GI: Soft, non-tender. No distention Skin: Warm, dry with normal turgor. Normal color. MS/ Extremity: Pulses equal, no cyanosis. Neurovascular intact. Full, normal range of motion. Neuro: Awake and alert, GCS 15, oriented to person, place, time, and situation. Moves all extremities. Normal gait. Psych: Awake, alert, with orientation to person, place and time. Behavior, mood, and affect are within normal limits. Vital Signs: 11/24 20:00 BP 144 / 109; Pulse 92; Resp 16 S; Temp 98.5(O); Pulse Ox 100% on R/A; Weight 90.26 kg ca1 (R); Height 5 ft. 0 in. (152.40 cm) (R); Pain 4/10; 22:12 BP 131 / 89 Supine; Pulse 79; ea 22:13 BP 128 / 91 Sitting; Pulse 80; ea 22:15 BP 143 / 101 Standing; Pulse 90; ea 11/25 00:05 BP 148 / 97; Pulse 68; Resp 18; Pulse Ox 99% on R/A; ea 11/24 20:00 Body Mass Index 38.86 (90.26 kg, 152.40 cm) ca1 MDM: 11/24 22:00 Patient medically screened. [facility] 11/25 00:14 Data reviewed: vital signs, nurses notes. Data interpreted: Pulse oximetry: on room air kb is 99 %. Interpretation: normal. Counseling: I had a detailed discussion with the patient and/or guardian regarding: the historical points, exam findings, and any diagnostic results supporting the discharge/admit diagnosis, lab results, the need for outpatient follow up, a family practitioner, to return to the emergency department if symptoms worsen or persist or if there are any questions or concerns that arise at home. 11/24 22:11 Order name: CBC with Diff; Complete Time: 22:46 kb 11/24 22:11 Order name: Basic Metabolic Panel; Complete Time: 22:49 kb 11/24 22:11 Order name: Urine Microscopic Only; Complete Time: 22:54 kb 11/24 22:23 Order name: Urine Dipstick-Ancillary; Complete Time: 22:25 [facility] 11/24 22:54 Order name: Urine Culture [facility] 11/24 22:11 Order name: Orthostatics; Complete Time: 22:29 kb 11/24 22:11 Order name: Urine Dipstick-Ancillary (obtain specimen); Complete Time: 22:25 kb 11/24 22:11 Order name: IV Start; Complete Time: 22:29 kb Administered Medications: 11/24 22:47 Drug: NS 0.9% 1000 ml Route: IV; Rate: 1000 ml; Site: right antecubital; ea 11/25 00:40 Follow up: Response: No adverse reaction; IV Status: Completed infusion; IV Intake: ea 1000ml Disposition: 11:44 Co-signature as Attending Physician, Ever Pete MD I agree with the assessment and mando plan of care. Disposition: 11/25/20 00:16 Discharged to Home. Impression: Volume depletion, Urinary tract infection, site not specified. - Condition is Stable. - Discharge Instructions: Urinary Tract Infection, Adult, [id number]. - Prescriptions for Cipro 500 mg/5 mL Oral Suspension - take 5 milliliter by ORAL route every 12 hours for 10 days; 120 milliliter. - Medication Reconciliation Form, Thank You Letter, Antibiotic Education, Prescription Opioid Use form. - Follow up: Emergency Department; When: As needed; Reason: Worsening of condition. Follow up: Private Physician; When: 2 - 3 days; Reason: Recheck today's complaints, Continuance of care, Re-evaluation by your physician. Signatures: Dispatcher [employer] [facility] Cindy Kang, Ever Metz MD MD cha Antunez, Elena, Rachael Dupree RN, ea RN MALINDA ca1 Corrections: (The following items were deleted from the chart) 00:41 00:16 11/25/2020 00:16 Discharged to Home. Impression: Volume depletion; Urinary tract ea infection, site not specified. Condition is Stable. Forms are Medication Reconciliation Form, Thank You Letter, Antibiotic Education, Prescription Opioid Use. Follow up: Emergency Department; When: As needed; Reason: Worsening of condition. Follow up: Private Physician; When: 2 - 3 days; Reason: Recheck today's complaints, Continuance of care, Re-evaluation by your physician. kb
--- NOTE | 2020-11-25 00:17 | ER ---
Nurse's Notes [facility] Name: Tash Duenas Age: 40 yrs Sex: Female : 1980 Arrival Date: 11/24/2020 Time: 19:42 Bed 13 Private MD: Diagnosis: Volume depletion;Urinary tract infection, site not specified Presentation: 11/24 20:00 Chief complaint: Patient states: An hour ago today, I felt like I was going to pass ca1 out, I just feel really tired. I had a gastric bypass a month ago, and ever since I have been having this mid back pain on the R side. I also have NOT been urinating a lot and my urine is dark. Coronavirus screen: Client denies travel out of the [place] in the last 14 days. At this time, the client does not indicate any symptoms associated with coronavirus-19. Ebola Screen: Patient negative for fever greater than or equal to 101.5 degrees Fahrenheit, and additional compatible Ebola Virus Disease symptoms Patient denies exposure to infectious person. Patient denies travel to an Ebola-affected area in the 21 days before illness onset. No symptoms or risks identified at this time. Initial Sepsis Screen: Does the patient meet any 2 criteria? No. Patient's initial sepsis screen is negative. Does the patient have a suspected source of infection? No. Patient's initial sepsis screen is negative. Risk Assessment: Do you want to hurt yourself or someone else? Patient reports no desire to harm self or others. Onset of symptoms was November 24, 2020. 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 Flu vaccine is up to date. - Social history:: Smoking status: Patient denies any tobacco usage or history of. Screenin:11 Abuse screen: Denies threats or abuse. Nutritional screening: No deficits noted. ea Tuberculosis screening: No symptoms or risk factors identified. Fall Risk None identified. Assessment: 22:27 General: Appears in no apparent distress. Behavior is calm, cooperative, appropriate ea for age. Pain: Denies pain. Neuro: Level of Consciousness is awake, alert, obeys commands, Oriented to person, place, time. Cardiovascular: Patient's skin is warm and dry. Respiratory: Airway is patent Respiratory effort is even, unlabored, Respiratory pattern is regular, symmetrical. Derm: Skin is pink, warm \T\ dry. 11/25 00:37 Reassessment: Patient and/or family updated on plan of care and expected duration. Pain ea level reassessed. Patient is alert, oriented x 3, equal unlabored respirations, skin warm/dry/pink. Discharge instruction given to patient verbalized the understanding of instruction. Pt left ED ambulatory tolerating well. Vital Signs: 11/24 20:00 BP 144 / 109; Pulse 92; Resp 16 S; Temp 98.5(O); Pulse Ox 100% on R/A; Weight 90.26 kg ca1 (R); Height 5 ft. 0 in. (152.40 cm) (R); Pain 4/10; 22:12 BP 131 / 89 Supine; Pulse 79; ea 22:13 BP 128 / 91 Sitting; Pulse 80; ea 22:15 BP 143 / 101 Standing; Pulse 90; ea 11/25 00:05 BP 148 / 97; Pulse 68; Resp 18; Pulse Ox 99% on R/A; ea 11/24 20:00 Body Mass Index 38.86 (90.26 kg, 152.40 cm) ca1 ED Course: 11/24 19:42 Patient arrived in ED. am4 20:02 Triage completed. ca1 20:04 Arm band placed on right wrist. ca1 22:00 Ever Pete MD is Attending Physician. mando 22:01 Cindy Kang FNP-C [facility] kb 22:10 Fany Robison, MALINDA is Primary Nurse. ea 22:11 Patient has correct armband on for positive identification. Bed in low position. Call ea light in reach. Side rails up X2. 22:26 Inserted saline lock: 20 gauge in right antecubital area, using aseptic technique. ea Blood collected. 11/25 00:36 No provider procedures requiring assistance completed. IV discontinued, intact, ea bleeding controlled, No redness/swelling at site. Pressure dressing applied. Administered Medications: 11/24 22:47 Drug: NS 0.9% 1000 ml Route: IV; Rate: 1000 ml; Site: right antecubital; ea 11/25 00:40 Follow up: Response: No adverse reaction; IV Status: Completed infusion; IV Intake: ea 1000ml Intake: 00:40 IV: 1000ml; Total: 1000ml. ea Outcome: 00:16 Discharge ordered by . kb 00:37 Discharge instructions given to patient, Instructed on discharge instructions, follow ea up and referral plans. medication usage, Demonstrated understanding of instructions, follow-up care, medications, Prescriptions given X 1. 00:40 Discharged to home ambulatory, with family. ea 00:40 Condition: stable 00:41 Patient left the ED. ea Signatures: Cindy Kang, NATIONAL ACCOUNTS RECRUITER-C NATIONAL ACCOUNTS RECRUITER-Ckb Ever Pete MD MD cha Antunez, Elena, RN RN Rachael Marques RN RN Mila Young
[2020-11-25 01:18] VITALS: TEMP 98.5
[2020-11-25 01:23] VITALS: BP 148/97; O2SAT 99
== END 2020-11-25 00:41 | disposition home or self-care (01) ==
LOC: ER 19:36
DX: E86.0 Dehydration (principal); N39.0 Urinary tract infection, site not specified; Z88.1 Allergy status to other antibiotic agents; Z88.2 Allergy status to sulfonamides; Z88.5 Allergy status to narcotic agent; Z88.8 Allergy status to other drugs, medicaments and biological substances; Z91.040 Latex allergy status
CPT/HCPCS: 96361; 87088; 85025; 87086; 80048; 36415; 96360; 99284; J7030; 81003; 81015

== ENCOUNTER 2024-07-14 18:14 | Emergency (ER) | payer BC ==
--- OUTSIDE RECORDS SUMMARY | 2024-07-14 18:19 | XMS REPORT | Continuity of Care Document ---
Author Name Unknown Address [address] [place] [address] [facility] Address [address] [place] [address] Care Team Providers Care Air Quality Technician Name Role Phone Carlos Townsend MD Primary Care Physician [phone] Sue Jacobson Attending Clinician Unavailable LINDA KELLY Attending Clinician Unavailable GC_[email or web address]_C Attending Clinician Unavailab alex GC_SWHAOMC_Ball_C Attending Clinician UnavailJason Handley DO Attending Clinician [phone] JASON FOURNIER Attending Clinician Unavailable HenryNini Attending Clinician [phone] BRIGITTE SILVER Attending Clinician Unavailable Therapy, [facility] Attending Clinician Unavailable Brigitte Silver MD Attending Clinician [phone] Doctor Unassigned, [place] Attending Clinician LINDA Tamayo Attending Clinician LINDA Negron M.D. Attending Clinician Unavailab le GC_SWHATBIC_Ball_C Admitting Clinician Unavailab le GC_SWHAOMC_Ball_C Admitting Clinician UnavailJASON Handley Admitting Clinician Unavailable LINDA KELLY Admitting Clinician Conor fuentes Payers Payer Name Policy Type Policy Number Effective Date Expirati on Date Source BCBSTX PPO AND OUT OF STATE [id number] 2021 00:00:00 [place] [address] [id number] [facility] [place] [id number] 2021 00:00:00 2023 00:00:00 Problems Condition Name Condition Details Condition Category Status Onset Date Resolution Date Last Treatment Date Treating Clinician Comments Source H/O gastric bypass H/O gastric bypass Disease Active 6- 00:00: 00 [facility] MORBID (SEVERE) OBESITY DUE TO EXCESS CA MORBID (SEVERE) OBESITY DUE TO EXCESS CA Active 10/06/2020 [facility] Diagnosis Active 4-01 00:00: 00 2020-11-25 13:42:00 Jannie Bolton E66.01 E66.01 Active 08/09/2020 [facility] Diagnosis Active 2-02 00:00: 00 2020-08-25 14:10:00 Jannie Bolton Malabsorpt ion due to intoleranc e, not elsewhere classified Malabsorpt ion due to intoleranc e, not elsewhere classified Disease Active 1-13 00:00: 00 [facility] Malnutriti on Malnutriti on Disease Active 1-13 00:00: 00 [facility] Vitamin D deficiency Vitamin D deficiency Disease Active -13 00:00: 00 [facility] Malabsorpt ion due to intoleranc e, not elsewhere classified Malabsorpt ion due to intoleranc e, not elsewhere classified [facility] Malnutriti [facility] Malnutriti [facility] Problem Active [facility] Vitamin D deficiency Vitamin D deficiency Problem Active [facility] Screening for viral disease Screening for viral disease Problem Active [facility] Body mass index 40+ - severely obese (finding) Body mass index 40+ - severely obese (finding) Active Problem 10/29/2020 BMI-43 [facility] Problem Active 2020-10-29 22:09:08 Jannie Bolton Gastroesop hageal reflux disease (disorder) Gastroesop hageal reflux disease (disorder) Active Problem 10/29/2020 [facility] Problem Active 2020-10-29 22:09:08 Jannie Bolton Hiatal hernia (disorder) Hiatal hernia (disorder) Active Problem 10/29/2020 10/20/2020 [facility] Problem Active 2020-10-29 22:09:08 Jannie Bolton Migraine (disorder) Migraine (disorder) Active Problem 10/29/2020 [facility] Problem Active 2020-10-29 22:09:08 Jannie Bolton Mixed anxiety and depressive disorder (disorder) Mixed anxiety and depressive disorder (disorder) Active Problem 10/29/2020 [facility] Problem Active 2020-10-29 22:09:08 Jannie Bolton Uterine leiomyoma (disorder) Uterine leiomyoma (disorder) Active Problem 10/29/2020 [facility] Problem Active 2020-10-29 22:09:08 Jannie Bolton [id number] Other headache syndrome Problem [facility] [id number] Chiari malformati on type I Problem [facility] [id number] ADD (attention deficit disorder) without hyperactiv ity Problem [facility] [id number] Non-season al allergic rhinitis due to pollen Problem [facility] [id number] Recurrent major depressive disorder, in full remission Problem [facility] [id number] Aortic valve insufficie ncy, etiology of cardiac valve disease unspecifie d Problem [facility] [id number] Gastroesop hageal reflux disease with esophagiti s without hemorrhage Problem 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 Allergies, Adverse Reactions, Alerts Allergy Name Allergy Type Status Severity Reaction(s) Onset Date Inactive Date Treating Clinician Comments Source CODEINE DRUG INGREDI Active Rash 2022-0 9-15 00:00: 00 [facility] Codeine Propensi ty to adverse reaction s Active Rash 2022-0 9-15 00:00: 00 [facility] Cephalex in Propensi ty to adverse reaction s Active Unknown - See comments 0 8-26 00:00: 00 [facility] Latex Propensi ty to adverse reaction s Active Unknown - See comments 0 8-26 00:00: 00 [facility] Sulfa Dyne Propensi ty to adverse reaction s Active Rash 2020-0 8-26 00:00: 00 [facility] CEPHALEX IN DRUG INGREDI Active Unknown-Cmnt 2020-0 8-26 00:00: 00 [facility] LATEX DRUG INGREDI Active Unknown-Cmnt 2020-0 8-26 00:00: 00 [facility] SULFA DYNE DRUG Active Rash 2020-0 8-26 00:00: 00 [facility] Tetracyc line Allergy to substanc e Active 0 6-03 00:00: 00 Chemical burn [facility] Codeine Allergy to substanc e Active Hives 0 5-14 00:00: 00 [facility] Cephalex in Allergy to substanc e Active Hives 0 5-14 00:00: 00 [facility] Latex Allergy to substanc e Active 2018-07 0-07 00:00: 00 [facility] Tetracai ne Allergy to substanc e Active 2018-07 0-07 00:00: 00 [facility] Cephalex in Allergy to substanc e Active Other 2018-07 0-07 00:00: 00 [facility] Codeine Allergy to substanc e Active Other 2018-07 0-07 00:00: 00 [facility] Sulfa (Sulfona mide Antibiot ics) DA Active 2018-07 0 00:00: 00 [facility] tetracai ne DA Active [place] 2018-07 0 00:00: 00 [facility] codeine DA Active 2018-07 0 00:00: 00 [facility] cephalex in DA Active 2018-07 0 00:00: 00 [facility] latex DA Active 2018-07 0 00:00: 00 [facility] Latex Allergy to substanc e Active 04-01 00:00: 00 [facility] [place] [facility] latex DA Active [place] 04-01 00:00: 00 [facility] tetracai ne DA Active [place] 04-01 00:00: 00 [facility] Sulfa (Sulfona mide Antibiot ics) DA Active [place] 04-01 00:00: 00 [facility] codeine DA Active U 04-01 00:00: 00 [facility] cephalex in DA Active U 04-01 00:00: 00 [facility] Sulfa Antibiot ics Allergy to substanc e Active Hives 12-30 00:00: 00 [facility] Sulfa (Sulfona mide Antibiot ics) DA Active U 12-30 00:00: 00 [facility] codeine DA Active [place] 12-30 00:00: 00 [facility] cephalex in DA Active U 12-30 00:00: 00 [facility] NO KNOWN ALLERGIE S Drug Class Active [facility] Keflex Allergy to substanc e Active Moderate to severe Rash [facility] SULFA (SULFONA MIDE ANTIBIOT ICS) Allergy to substanc e Active Moderate to severe Rash [facility] TETRACAI NE (TOPICAL ) Allergy to substanc e Active Severe Other [facility] Keflex Allergy to drug (finding ) [facility] sulfa Allergy to drug (finding ) Active [facility] tetracai ne tetracai ne Active Unknown [facility] Substanc e with sulfonam phani structur e and antibact erial mechanis m of action (substan ce) Substanc e with sulfonam phani structur e and antibact erial mechanis m of action (substan ce) Active rash [facility] codeine codeine Active rash [facility] 8091 Drug allergy Active rash [facility] sulfa drugs sulfa drugs Active [facility] tetracyc line topical tetracyc line topical Active [facility] Latex Latex Active [facility] Adhesive Adhesive Active [facility] Social History Social Habit Start Date Stop Date Quantity Comments Source Gender identity [facility] Sexual orientation [facility] History of Tobacco Use [facility] Alcoholic beverage intake 2023-08-28 00:00:00 2023-08-28 00:00:00 Lifetime non-drinker (finding) [facility] Exposure to SARS-CoV-2 (event) 2022-06-10 00:00:00 2022-06-20 09:34:00 Not sure [facility] History of Social function 2022-06-20 00:00:00 2022-06-20 00:00:00 [facility] Alcohol intake 2021-12-20 00:00:00 2021-12-20 00:00:00 Lifetime non-drinker (finding) [facility] Tobacco use and exposure 2021-03-22 00:00:00 2021-03-22 00:00:00 Smokeless tobacco non-user [facility] Cigarette pack-years 2021-03-22 00:00:00 2021-03-22 00:00:00 [facility] Social History 2020-10-20 17:33:39 2020-10-20 17:33:39 [facility] Hoang Sex Assigned At 1980 00:00:00 1980 00:00:00 [facility] Smoking Status Start Date Stop Date Source Tobacco smoking consumption unknown [facility] smoked tobacco [facility] Medications Ordered Medication Name Filled Medication Name Start Date Stop Date Current Medication? Ordering Clinician Indication Dosage Frequency Signature (SIG) Comments Components Source Cyclobenzap rine HCl 10 MG Cyclobenzap rine HCl 10 MG 2023-07- 00:00: 00 No 1{table t} BID Cyclobenza jillian HCl 10 MG Vitamin D (Ergocalcif betzaida) 1.25 MG (18039 [facility]) Vitamin D (Ergocalcif betzaida) 1.25 MG (86606 [facility]) - 00:00: 00 No 1{capsu le} Vitamin D (Ergocalci ferol) 1.25 MG (01175 [facility]) levocetiriz ine (Xyzal) 5 MG tablet 08-28 09:23: 12 08-28 00:00 :00 No Take by mouth 1 (one) time each day in the evening. [facility] sertraline (Zoloft) 50 MG tablet 08-28 09:23: 12 08-28 00:00 :00 No 50mg QD Take 50 mg by mouth 1 (one) time each day. [facility] methylpheni date (Concerta) 27 MG CR tablet 08-28 09:23: 12 08-28 00:00 :00 No 1 (one) time each day at the same time. [facility] amitriptyli ne (Elavil) 25 MG tablet 08-28 09:22: 55 Yes 50mg Take 50 mg by mouth every night. [facility] Multiple Vitamin (multivitam in) tablet 08-28 09:22: 55 Yes 1{tbl} QD Take 1 tablet by mouth 1 (one) time each day. [facility] calcium citrate-vit fish D 250-100 MG-UNIT tablet 08-28 09:22: 55 Yes 1{tbl} Q.5D Take 1 tablet by mouth 2 (two) times a day. [facility] sucralfate (Carafate) 1 GM/10ML suspension 08-28 00:00: 00 09-27 04:59 :00 No [id number] 1g Q.25D Take 10 mL (1 g total) by mouth in the morning and 10 mL (1 g total) at noon and 10 mL (1 g total) in the evening and 10 mL (1 g total) before bedtime. [facility] Cyanocobala min Cyanocobala min 2022-07 00:00: 00 No 1000ug [facility] ketorolac (TORADOL) injection 15 mg 03-23 00:15: 00 03-22 23:39 :00 No 15mg 15 mg, Slow IV Push, ONCE, 1 dose, On Sat03/22/23 at 1915, [facility] ondans[facility] (ZOFRAN (PF)) injection 4 mg 03-22 22:15: 00 03-22 21:40 :00 No 4mg 4 mg, Slow IV Push, ONCE, 1 dose, On Sat03/22/23 at 1715, Routine [facility] iopamidol (ISOVUE 370-500 mL) injection 90 mL 03-22 22:05: 00 03-22 22:15 :00 No [id number] 90mL 90 mL, Intravenou s, ONCE, 1 dose, On Sat03/22/23 at 1715, Routine [facility] NaCl 0.9% (NS) bolus infusion 1,000 mL 03-22 21:15: 00 03-23 00:07 :00 No 1000mL at 999 mL/hr, 1,000 mL, IV Infusion, ONCE, 1 dose, On Sat03/22/23 at 1615, STAT [facility] omeprazole 20 mg capsule 03-22 00:00: 00 03-22 00:00 :00 No [id number] 20mg Take 1 capsule by mouth in the morning for 30 days. [facility] methylpheni date (Concerta) 27 MG CR tablet 2021-07 10:28: 11 Yes 1 (one) time each day at the same time. [facility] amitriptyli ne (Elavil) 25 MG tablet 2021-07 10:27: 40 Yes Take by mouth every night. [facility] Multiple Vitamin (multivitam in) tablet 2021-07 10:27: 40 Yes 1{tbl} QD Take 1 tablet by mouth 1 (one) time each day. [facility] calcium citrate-vit fish D 250-100 MG-UNIT tablet 2021-0714 10:27: 40 Yes 1{tbl} Q.5D Take 1 tablet by mouth 2 (two) times a day. [facility] Tuberculin- Allergy Syringes 25G X 1" 1 ML misc 01-04 00:00: 00 Yes [id number] 1U 1 Units 1 (one) time per week. [facility] Norgestimat e-Eth Estradiol (SPRINTEC 28 PO) 12-20 10:13: 54 12-20 00:00 :00 No Take by mouth. [facility] ciprofloxac in (Cipro) 500 MG tablet 12-20 10:: 12-20 00:00 :00 No Q.5D Take by mouth 2 (two) times a day. [facility] buPROPion HCl (WELLBUTRIN PO) 12-20 10:13: 12-20 00:00 :00 No Take by mouth. [facility] levocetiriz ine (Xyzal) 5 MG tablet 12-20 09:35: 00 Yes Take by mouth 1 (one) time each day in the evening. [facility] sertraline (Zoloft) 50 MG tablet 12-20 09:35: 00 Yes 50mg QD Take 50 mg by mouth 1 (one) time each day. [facility] Multiple Vitamin (multivitam in) tablet 12-20 09:35: 00 Yes 1{tbl} QD Take 1 tablet by mouth 1 (one) time each day. [facility] calcium citrate-vit fish D 250-100 MG-UNIT tablet 12-20 09:35: 00 Yes 1{tbl} Q.5D Take 1 tablet by mouth 2 (two) times a day. [facility] losartan (Cozaar) 50 MG tablet 12-10 00:00: 00 Yes 25mg QD Take 25 mg by mouth 1 (one) time each day. [facility] Sprintec 28 0.25-35 MG-MCG tablet 12-08 00:00: 00 Yes 1{tbl} QD Take 1 tablet by mouth 1 (one) time each day. [facility] atomoxetine (Strattera) 40 MG capsule 11-01 00:00: 00 Yes 1{capsu le} QD Take 1 capsule by mouth 1 (one) time each day. [facility] Cholecalcif betzaida (Vitamin D3) 50 MCG (1999) tablet 08-22 00:00: 00 Yes 50ug QD Take 50 mcg by mouth 1 (one) time each day. [facility] ascorbic acid (Vitamin C) 500 MG tablet 08-21 00:00: 00 Yes 1{tbl} QD Take 1 tablet by mouth 1 (one) time each day. [facility] ascorbic acid (Vitamin C) 500 MG tablet 08-21 00:00: 00 Yes 1{tbl} QD Take 1 tablet by mouth 1 (one) time each day. [facility] amitriptyli ne (Elavil) 25 MG tablet 03-22 09:11: 09 Yes Take by mouth every night. [facility] Norgestimat e-Eth Estradiol (SPRINTEC 28 PO) 03-22 09:11: 09 Yes Take by mouth. [facility] levocetiriz ine (Xyzal) 5 MG tablet 03-22 09:11: 09 Yes Take by mouth 1 (one) time each day in the evening. [facility] sertraline (Zoloft) 50 MG tablet 03-22 09:11: 09 Yes 50mg QD Take 50 mg by mouth 1 (one) time each day. [facility] ciprofloxac in (Cipro) 500 MG tablet 03-22 09:11: 09 Yes Q.5D Take by mouth 2 (two) times a day. [facility] Multiple Vitamin (multivitam in) tablet 03-22 09:11: 09 Yes 1{tbl} QD Take 1 tablet by mouth 1 (one) time each day. [facility] calcium citrate-vit fish D 250-100 MG-UNIT tablet 03-22 09:11: 09 Yes 1{tbl} Q.5D Take 1 tablet by mouth 2 (two) times a day. [facility] amitriptyli ne (Elavil) 25 MG tablet 12-08 14:52: 52 Yes Take by mouth every night. [facility] Norgestimat e-Eth Estradiol (SPRINTEC 28 PO) 12-08 14:52: 52 Yes Take by mouth. [facility] buPROPion HCl (WELLBUTRIN PO) 12-08 14:52: 52 Yes Take by mouth. [facility] levocetiriz ine (Xyzal) 5 MG tablet 12-08 14:52: 52 Yes Take by mouth 1 (one) time each day in the evening. [facility] sertraline (Zoloft) 50 MG tablet 12-08 14:52: 52 Yes 50mg QD Take 50 mg by mouth 1 (one) time each day. [facility] ciprofloxac in (Cipro) 500 MG tablet 12-08 14:52: 52 Yes Q.5D Take by mouth 2 (two) times a day. [facility] calcium citrate-vit fish D 250-100 MG-UNIT tablet 12-08 14:52: 52 Yes 1{tbl} Q.5D Take 1 tablet by mouth 2 (two) times a day. [facility] Multiple Vitamin (multivitam in) tablet 12-08 14:52: 51 Yes 1{tbl} QD Take 1 tablet by mouth 1 (one) time each day. [facility] buPROPion HCl (WELLBUTRIN PO) 12-08 09:52: 52 Yes Take by mouth. [facility] buPROPion XL (Wellbutrin XL) 150 MG 24 hr tablet 11-05 00:00: 00 12-20 00:00 :00 No 1{tbl} QD Take 1 tablet by mouth 1 (one) time each day. [facility] Ondansetron 4 MG Oral Tablet [Zofran] 10-27 18:48: 00 Yes 4 mg = 1 tab, PO, BID, PRN Nausea, # 10 tab, 0 Refill(s), Pharmacy: [facility] 149, 152.4, cm, 10/24/20 8:06:00 CDT, Height, 99.2, kg, 10/24/20 8:06:00 CDT, Weight Memoria l [facility] Docusate Sodium 100 MG Oral Capsule [Colace] 10-27 15:00: 00 Yes 100 mg = 1 cap, PO, BID, PRN Constipati on, # 20 cap, 0 Refill(s), Pharmacy: [facility] 149, 152.4, cm, 10/24/20 8:06:00 CDT, Height, 99.2, kg, 10/24/20 8:06:00 CDT, Weight Jannie Bolton Metoclopram phani 5 MG Oral Tablet [Reglan] 10-27 14:59: 00 Yes 5 mg = 1 tab, PO, Q6H, PRN Nausea & Vomiting, 30 minutes before meals and at bedtime, # 12 tab, 0 Refill(s), Pharmacy: [facility] 149, 152.4, cm, 10/24/20 8:06:00 CDT, Height, 99.2, kg, 10/24/20 8:06:00 CDT, Weight Jannie Bolton potassium phosphate 10-26 17:22: 00 No Notes: (Same as: K Phosphate. ) Do not infuse phosphorou s concurrent ly in the same line as TPN or IVF that contains calcium. For double lumen central lines, phosphorou s may be infused in a separate lumen from TPN. 1 mMol phoshate has 1.47 mEq potassium Infuse over 4 hours Jannie Bolton Metoclopram phani 5 MG Oral Tablet [Reglan] 10-26 15:00: 00 No Notes: (Same as: Reglan) Take 30 min before meals Jannie Bolton tramadol hydrochlori de 50 MG Oral Tablet 10-26 12:21: 00 No 50 mg = 1 tab, PO, Q6H, PRN Pain Score 1-3, X 3 day, # 12 tab, 0 Refill(s), Pharmacy: [facility] 149, 152.4, cm, 10/24/20 8:06:00 CDT, Height, 99.2, kg, 10/24/20 8:06:00 CDT, Weight Jannie Bolton tramadol hydrochlori de 50 MG Oral Tablet 10-26 11:59: 00 No Notes: Not to exceed 400mg/day. (Same As: Ultram) Jannie Bolton ketOROLAC 30 mg/mL injectable solution 10-26 11:59: 00 No 4 days MEDICATION WASTE Product Size: 30 mg Product Wasted: 0 mg Jannie Bolton Roxicodone 10-25 16:34: 00 No Notes: (Same as: Roxicodone ) Jannie Bolton Roxicodone 10-25 16:33: 00 No Notes: (Same as: Roxicodone ) Jannie Bolton pantoprazol e 10-25 14:00: 00 No Notes: Tablet should not be chewed or crushed. (Same as: Protonix) Jannie Bolton Bupropion 10-25 14:00: 00 No 150 mg, 1 tab, Route: PO, Drug form: ERTAB, Daily, Dosing Weight 99.2, kg, Start date: 10/25/20 9:00:00 CDT, Duration: 30 day, Stop date: 11/23/20 9:00:00 CDT, 0 Jannie Bolton Sertraline 10-25 14:00: 00 No Notes: (Same as: Zoloft) Jannie Bolton Dexamethaso ne 10-25 11:58: 00 No Notes: Concentrat ion: 4mg/ml Jannie Bolton Simethicone 10-25 09:50: 00 No Notes: (Same as: Mylicon) Jannie Bolton gabapentin 10-25 05:00: 00 No Notes: (Same as: Neurontin) Jannie Bolton Ondansetron 10-25 05:00: 00 No Notes: (Same as: Zofran) MEDICATION WASTE Product Size: 4 mg Product Wasted: 0 mg Jannie Bolton Lovenox 10-25 02:00: 00 No Notes: (Same as: Lovenox) Jannie Bolton Amitriptyli ne 10-25 02:00: 00 No Notes: (Same as: Elavil) Jannie Bolton Acetaminoph en 10-24 23:57: 00 No Notes: Max acetaminop hen 4000 mg/day (4 gm/day). (Same as: Tylenol Extra Strength) Jannie Bolton gabapentin 10-24 23:52: 00 No Notes: (Same as: Neurontin) Jannie Bolton sugammadex (ANES) 10-24 20:34: 00 No Route: IV, Drug form: SOLN, ONCE, Stop date: 10/24/20 15:34:00 CDT Ruthayleen Bolton Hydralazine 10-24 20:32: 00 No 10 mg, Route: IVP, Q20Min, Dosing Weight 99.2, kg, PRN Elevated BP, Start date: 10/24/20 15:32:00 CDT, Duration: 2 doses or times, Stop date: Limited # of times Jannie Thakkarann Labetalol 10-24 20:32: 00 No 10 mg, Route: IVP, Q5Min, Dosing Weight 99.2, kg, PRN Elevated BP, Start date: 10/24/20 15:32:00 CDT, Duration: 5 doses or times, Stop date: Limited # of times Jannie Bolton Oxycodone Hydrochlori de 5 MG Oral Tablet 10-24 20:32: 00 No 5 mg, Route: PO, Drug form: TAB, Q4H, Dosing Weight 99.2, kg, PRN Pain Score 4-6, Start date: 10/24/20 15:32:00 CDT, Duration: 30 day, Stop date: 11/23/20 15:31:00 CDT Jannie Thakkarann Morphine 10-24 20:32: 00 No 2 mg, Route: IVP, Q5Min, Dosing Weight 99.2, kg, PRN Pain Score 4-6, Start date: 10/24/20 15:32:00 CDT, Duration: 5 doses or times, Stop date: Limited # of times Jannie Thakkarann Fentanyl 10-24 20:32: 00 No 25 microgram, Route: IVP, Q5Min, Dosing Weight 99.2, kg, PRN Pain Score 4-6, Priority: Routine, Start date: 10/24/20 15:32:00 CDT, Duration: 4 doses or times, Stop date: Limited # of times Ruthayleen leon Bolton Hydromorpho ne 10-24 20:32: 00 No 0.5 mg, Route: IVP, Q5Min, Dosing Weight 99.2, kg, PRN Pain Score 7-10, Start date: 10/24/20 15:32:00 CDT, Duration: 4 doses or times, Stop date: Limited # of times Ruthoria leon Bolton Flumazenil 10-24 20:32: 00 No 0.2 mg, Route: IVP, PRN, Dosing Weight 99.2, kg, PRN Benzodiaze pine Reversal, Initial dose, Start date: 10/24/20 15:32:00 CDT, Duration: 30 day, Stop date: 11/23/20 15:31:00 CDT Ruthayleen leon Bolton Naloxone 10-24 20:32: 00 No 0.4 mg, Route: IVP, Q2MIN, Dosing Weight 99.2, kg, PRN Narcotic Reversal, Start date: 10/24/20 15:32:00 CDT, Duration: 8 doses or times, Stop date: Limited # of times Ruthayleen leon Bolton Albuterol 0.83 MG/ML Inhalant Solution 10-24 20:32: 00 No 2.49 mg, Route: NEB, Q20Min, Dosing Weight 99.2, kg, PRN Wheezing, Start date: 10/24/20 15:32:00 CDT, Duration: 30 day, Stop date: 11/23/20 15:31:00 CDT Jannie Bolton Meperidine 10-24 20:32: 00 No 12.5 mg, Route: IVP, Q30Min, Dosing Weight 99.2, kg, PRN Other -See Comment, For shivering, Start date: 10/24/20 15:32:00 CDT, Duration: 2 doses or times, Stop date: Limited # of times Jannie Bolton Ondansetron 10-24 20:32: 00 No 4 mg, Route: IVP, ONCE, Dosing Weight 99.2, kg, PRN Nausea & Vomiting, Start date: 10/24/20 15:32:00 CDT Memayleen Bolton Promethazin e 10-24 20:32: 00 No 6.25 mg, Route: IVPB, ONCE, Dosing Weight 99.2, kg, PRN Nausea & Vomiting, Start date: 10/24/20 15:32:00 CDT Ruthayleen leon Bolton ondansetron (ANES) 10-24 20:29: 00 No Route: IV, Drug form: INJ, ONCE, Stop date: 10/24/20 15:29:00 CDT Memayleen leon Moro hydromorpho ne (ANES) 10-24 20:19: 00 No Route: IV, Drug form: INJ, ONCE, Stop date: 10/24/20 15:19:00 CDT Jannie Bolton Calcium Chloride 0.0014 MEQ/ML / Potassium Chloride 0.004 MEQ/ML / Sodium Chloride 0.103 MEQ/ML / Sodium Lactate 0.028 MEQ/ML Injectable Solution 10-24 20:07: 00 No 1,000 mL, Rate: 125 ml/hr, Infuse over: 8 hr, Route: IV, Dosing Weight 99.2 kg, Total Volume: 1,000, Start date: 10/24/20 15:07:00 CDT, Duration: 30 day, Stop date: 11/23/20 15:06:00 CDT, 2.09, m2, 0 Jannie leon Bolton Acetaminoph en 10-24 20:07: 00 No Notes: Max acetaminop hen = 4000 mg/day (4 gm/day). (Same as: Tylenol) Jannie Bolton Ondansetron 10-24 20:07: 00 No Notes: (Same as: Beatrice) MEDICATION WASTE Product Size: 4 mg Product Wasted: 0 mg Memoria leon Bolton phenylephri ne (ANES) 10-24 19:03: 00 No Route: IV, Drug form: INJ, ONCE, Stop date: 10/24/20 14:03:00 CDT Memayleen leon Bolton Acetaminoph en 10-24 19:00: 00 No 1,000 mg, Route: IVPB, Q6Hnow, Dosing Weight 99.2, kg, Start date: 10/24/20 14:00:00 CDT, Duration: 24 hr, Stop date: 10/25/20 8:00:00 CDT Memoria leon Bolton dexamethaso ne (ANES) 10-24 18:42: 00 No Route: IV, Drug form: INJ, ONCE, Stop date: 10/24/20 13:42:00 CDT Memoria leon Bolton Tramadol 10-24 18:22: 00 No Notes: Not to exceed 400mg/day. (Same As: Ultram) Memoria leon Bolton Promethazin e 10-24 18:22: 00 No Notes: Do not give IV push. (Same as: Phenergan) Memoria leon Bolton moxifloxaci n ([facility]) 10-24 18:17: 00 No Route: IV, Drug form: INJ, ONCE, Stop date: 10/24/20 13:17:00 CDT Memoria leon Bolton midazolam ([facility]) 10-24 17:52: 00 No Route: IV, Drug form: SOLN, ONCE, Stop date: 10/24/20 12:52:00 CDT Memoria leon Bolton lidocaine ([facility]) 10-24 17:52: 00 No Route: IV, Drug form: INJ, ONCE, Stop date: 10/24/20 12:52:00 CDT Memoria leon Bolton propofol (ANES) 10-24 17:52: 00 No Route: IV, Drug form: INJ, ONCE, Stop date: 10/24/20 12:52:00 CDT Memoria leon Bolton rocuronium (ANES) 10-24 17:52: 00 No Route: IV, Drug form: INJ, ONCE, Stop date: 10/24/20 12:52:00 CDT Memoria leon Bolton fentaNYL (ANES) 10-24 17:52: 00 No Route: IV, Drug form: INJ, ONCE, Stop date: 10/24/20 12:52:00 CDT Memoria leon Bolton dexmedetomi dine (ANES) 200 microgram 10-24 17:15: 00 No Route: IV, Drug form: INJ, Start date: 10/24/20 12:15:00 CDT, Stop date: 10/24/20 13:15:00 CDT Ruthayleen leon Hoang ketAMINE (ANES) 10 mg 10-24 17:15: 00 No Route: IV, Drug form: INJ, Start date: 10/24/20 12:15:00 CDT, Stop date: 10/24/20 13:15:00 CDT Ruthayleen leon Hoang Isolyte S PH 7.4 (ANES) 1000 mL 10-24 17:00: 00 No Route: IV, Total Volume: 1,000, Start date: 10/24/20 12:00:00 CDT, Stop date: 10/24/20 13:00:00 CDT Ruthayleen leon Bolton heparin sodium, porcine 2500 UNT/ML Injectable Solution 10-24 13:28: 00 No Notes: porcine heparin Ruthayleen leon Bolton 72 HR Scopolamine 0.0139 MG/HR Transdermal Patch 10-24 13:28: 00 No Notes: Change patch every 72 hours (Same as: Transderm- Scop) Jannie quintero Moro Ofirmev 10-24 13:28: 00 No Notes: Infuse over 15 minutes Do not exceed 4gm/day of acetaminop hen MEDICATION WASTE Product Size: 1000 mg Product Wasted: ___ mg Jannie Thakkarann gabapentin 300 MG Oral Capsule 10-24 13:27: 00 No Notes: (Same as: Neurontin) Ruthayleen leon Hoang Acetaminoph en 10-24 13:24: 00 No 1,000 mg, Route: PO, Drug form: TAB, PRE OP, Dosing Weight 99.2, kg, Priority: NOW, Start date: 10/24/20 8:24:00 CDT, Duration: 1 doses or times Ruthayleen leon Bolton gabapentin 10-24 13:24: 00 No 300 mg, Route: PO, PRE OP, Dosing Weight 99.2, kg, Priority: NOW, Start date: 10/24/20 8:24:00 CDT, Duration: 1 doses or times Ruthayleen leon Bolton Tramadol 10-24 13:24: 00 No Notes: Not to exceed 400mg/day. (Same As: Ultram) Ruthayleen leon Bolton 72 HR Scopolamine 0.0139 MG/HR Transdermal Patch 10-24 13:24: 00 No 1 patch, Route: TOP, Drug Form: ERFILM, Dosing Weight 99.2, kg, PRE OP, NOW, Start date: 10/24/20 8:24:00 CDT, Duration: 1 doses or times Ruthayleen leon Bolton Xyzal 10-24 13:02: 00 Yes PO, QPM, 0 Refill(s) Ruthayleen leon Bolton Isolyte S PH 7.4 1,000 mL 10-24 12:48: 00 No Notes: (Same as: Isolyte S PH7.4, Normosol-R PH 7.4, Plasma-Lyt e A ) Ruthayleen leon Bolton buPROPion 150 mg/12 hours (SR) oral tablet, extended release 10-20 17:43: 00 Yes 150 mg = 1 tab, PO, Daily, # 60 tab, 1 Refill(s) Ruthayleen leon Bolton sertraline 25 mg oral tablet 10-20 17:43: 00 Yes 25 mg = 1 tab, PO, Daily, # 30 tab, 1 Refill(s) Ruthayleen leon Bolton {21 (Ethinyl Estradiol 0.035 MG / norgestimat e 0.25 MG Oral Tablet) / 7 (Inert Ingredients 1 MG Oral Tablet) } Pack [Sprintec ] 10-20 17:42: 00 Yes 1 tab, PO, Daily, # 28 tab, 0 Refill(s) Ruthayleen leon Bolton dexmethylph enidate 10 mg tablet dexmethylph enidate 10 mg tablet No dexmethylp henidate 10 mg tablet [facility] Sprintec (28) 0.25 mg-35 mcg tablet 1 tablet daily skip placebo pills Sprintec (28) 0.25 mg-35 mcg tablet 1 tablet daily skip placebo pills No Sprintec (28) 0.25 mg-35 mcg tablet 1 tablet daily skip placebo pills [facility] valacyclovi r 500 mg tablet valacyclovi r 500 mg tablet No valacyclov ir 500 mg tablet [facility] amitriptyli ne 50 mg tablet amitriptyli ne 50 mg tablet No amitriptyl ine 50 mg tablet [facility] cyanocobala min (vit B-12) 1,000 mcg/mL injection solution cyanocobala min (vit B-12) 1,000 mcg/mL injection solution No cyanocobal fish (vit B-12) 1,000 mcg/mL injection solution [facility] dexmethylph enidate ER 20 mg capsule,ext ended release - 50 TAKE 1 CAPSULE BY MOUTH ONCE DAILY IN THE MORNING dexmethylph enidate ER 20 mg capsule,ext ended release [id number]- 50 TAKE 1 CAPSULE BY MOUTH ONCE DAILY IN THE MORNING No dexmethylp henidate ER 20 mg capsule,ex tended release [id number] -50 TAKE 1 CAPSULE BY MOUTH ONCE DAILY IN THE MORNING [facility] dicyclomine 10 mg capsule dicyclomine 10 mg capsule No dicyclomin e 10 mg capsule [facility] ergocalcife rol (vitamin D2) 1,250 mcg (50,000 unit) capsule ergocalcife rol (vitamin D2) 1,250 mcg (50,000 unit) capsule No ergocalcif betzaida (vitamin D2) 1,250 mcg (50,000 unit) capsule [facility] methylpheni date ER 27 mg tablet,exte nded release 24 hr methylpheni date ER 27 mg tablet,exte nded release 24 hr No methylphen idate ER 27 mg tablet,ext ended release 24 hr [facility] ondansetron 4 mg disintegrat ing tablet ondansetron 4 mg disintegrat ing tablet No ondansetro n 4 mg disintegra ting tablet [facility] oseltamivir 75 mg capsule oseltamivir 75 mg capsule No oseltamivi r 75 mg capsule [facility] pantoprazol e 40 mg tablet,shayan yed release pantoprazol e 40 mg tablet,shayan yed release No pantoprazo le 40 mg tablet,del ayed release [facility] propranolol 20 mg tablet propranolol 20 mg tablet No propranolo l 20 mg tablet [facility] sodium,pota ssium,mag sulfates 17.5 gram-3.13 gram-1.6 gram oral soln sodium,pota ssium,mag sulfates 17.5 gram-3.13 gram-1.6 gram oral soln No sodium,pot assium,mag sulfates 17.5 gram-3.13 gram-1.6 gram oral soln [facility] sucralfate 1 gram tablet sucralfate 1 gram tablet No sucralfate 1 gram tablet [facility] valacyclovi r 1 gram tablet valacyclovi r 1 gram tablet No valacyclov ir 1 gram tablet [facility] Sprintec 28 0.25-35 MG-MCG Sprintec 28 0.25-35 MG-MCG No 1{table t} QD Sprintec 28 0.25-35 MG-MCG Meclizine HCl 12.5 MG Meclizine HCl 12.5 MG No 1{table t_as_ne eded} QD Meclizine HCl 12.5 MG Losartan Potassium 50 MG Losartan Potassium 50 MG No 1{table t} QD Losartan Potassium 50 MG valACYclovi r HCl 1 GM valACYclovi r HCl 1 GM No 1{table t} QD valACYclov ir HCl 1 GM Propranolol HCl 20 MG Propranolol HCl 20 MG No 1{table t} QD Propranolo l HCl 20 MG Focalin XR 20 MG Focalin XR 20 MG No 1{capsu le_in_t he_morn ing} QD Focalin XR 20 MG Pantoprazol e Sodium 40 MG Pantoprazol e Sodium 40 MG No 1{table t} BID Pantoprazo le Sodium 40 MG Amitriptyli ne HCl 50 MG Amitriptyli ne HCl 50 MG No 1{table t_at_be dtime} QD Amitriptyl ine HCl 50 MG Sucralfate 1 GM Sucralfate 1 GM No 1{table t_on_an _empty_ stomach } QID Sucralfate 1 GM Cyanocobala min 1000 MCG/ML Cyanocobala min 1000 MCG/ML No 1{ml} Cyanocobal fish 1000 MCG/ML Immunizations Ordered Immunization Name Filled Immunization Name Date Status Comments Source Flucelvax - multidose vial Flucelvax - multidose vial 2019-05-07 15:25:00 Completed [facility] Flucelvax - multidose vial Flucelvax - multidose vial 2019-05-07 15:25:00 Completed [facility] Flucelvax - multidose vial Flucelvax - multidose vial 2019-05-07 15:25:00 [facility] Flucelvax - multidose vial Flucelvax - multidose vial Unknown Completed [facility] Flucelvax - multidose vial Flucelvax - multidose vial Unknown Completed [facility] Flucelvax (ccIIV4) - MDV - 0.5mL Flucelvax (ccIIV4) - MDV - 0.5mL Unknown Completed [facility] Flucelvax (ccIIV4) - MDV - 0.5mL Flucelvax (ccIIV4) - MDV - 0.5mL Unknown Completed [facility] Flucelvax (ccIIV4) - MDV - 0.5mL Flucelvax (ccIIV4) - MDV - 0.5mL Unknown Completed [facility] Flucelvax (ccIIV4) - MDV - 0.5mL Flucelvax (ccIIV4) - MDV - 0.5mL Unknown Completed [facility] Flucelvax (ccIIV4) - MDV - 0.5mL Flucelvax (ccIIV4) - MDV - 0.5mL Unknown Completed [facility] Fluarix (IIV3) - SDS - 0.5mL Fluarix (IIV3) - SDS - 0.5mL Unknown Completed [facility] Vital Signs Vital Name Observation Time Observation Value Comments S ource height 2024-05-25 14:00:00 60.5 [in_i] [facility] weight 2024-05-25 14:00:00 150 [lb_av] [facility] temperature 2024-05-25 14:00:00 97.7 [degF] [facility] bmi 2024-05-25 14:00:00 28.81 kg/m2 [facility] oximetry 2024-05-25 14:00:00 98 % [facility] respiratory rate 2024-05-25 14:00:00 16 /min [facility] blood pressure systolic 2024-05-25 14:00:00 116 mm[Hg] [facility] blood pressure diastolic 2024-05-25 14:00:00 80 mm[Hg] [facility] height 2024-03-26 09:20:00 60.5 [in_i] [facility] weight 2024-03-26 09:20:00 147.6 [lb_av] [facility] temperature 2024-03-26 09:20:00 97.6 [degF] [facility] bmi 2024-03-26 09:20:00 28.35 kg/m2 [facility] oximetry 2024-03-26 09:20:00 99 % [facility] respiratory rate 2024-03-26 09:20:00 16 /min [facility] blood pressure systolic 2024-03-26 09:20:00 118 mm[Hg] [facility] blood pressure diastolic 2024-03-26 09:20:00 68 mm[Hg] [facility] BMI (Body Mass Index) 2024-01-06 00:00:00 29.3 kg/m2 [facility] BP Diastolic 2024-01-06 00:00:00 84 mm[Hg] [facility] BP Systolic 2024-01-06 00:00:00 124 mm[Hg] [facility] Height 2024-01-06 00:00:00 60 [in_i] [facility] Body Weight 2024-01-06 00:00:00 150 [lb_av] [facility] height 2023-09-02 15:00:00 60.5 [in_i] [facility] weight 2023-09-02 15:00:00 139.6 [lb_av] [facility] temperature 2023-09-02 15:00:00 97 [degF] [facility] bmi 2023-09-02 15:00:00 26.81 kg/m2 [facility] oximetry 2023-09-02 15:00:00 98 % [facility] respiratory rate 2023-09-02 15:00:00 16 /min [facility] blood pressure systolic 2023-09-02 15:00:00 128 mm[Hg] [facility] blood pressure diastolic 2023-09-02 15:00:00 76 mm[Hg] [facility] height 2023-09-02 15:00:00 60.5 [in_i] [facility] weight 2023-09-02 15:00:00 139.6 [lb_av] [facility] temperature 2023-09-02 15:00:00 97 [degF] [facility] bmi 2023-09-02 15:00:00 26.81 kg/m2 [facility] oximetry 2023-09-02 15:00:00 98 % [facility] respiratory rate 2023-09-02 15:00:00 16 /min [facility] blood pressure systolic 2023-09-02 15:00:00 128 mm[Hg] [facility] blood pressure diastolic 2023-09-02 15:00:00 76 mm[Hg] [facility] Systolic blood pressure 2023-08-28 15:24:00 106 mm[Hg] [facility] Diastolic blood pressure 2023-08-28 15:24:00 71 mm[Hg] [facility] Heart rate 2023-08-28 15:24:00 71 /min [facility] Body temperature 2023-08-28 15:24:00 36.56 [facility] Body height 2023-08-28 15:24:00 152.4 cm [facility] Body weight 2023-08-28 15:24:00 63.776 kg [facility] BMI 2023-08-28 15:24:00 27.46 kg/m2 [facility] Oxygen saturation in Arterial blood by Pulse oximetry 2023-08-28 15:24:00 99 /min [facility] height 2023-05-27 08:00:00 60.5 [in_i] [facility] weight 2023-05-27 08:00:00 137 [lb_av] [facility] temperature 2023-05-27 08:00:00 97.1 [degF] [facility] bmi 2023-05-27 08:00:00 26.31 kg/m2 [facility] oximetry 2023-05-27 08:00:00 99 % [facility] respiratory rate 2023-05-27 08:00:00 16 /min [facility] blood pressure systolic 2023-05-27 08:00:00 134 mm[Hg] [facility] blood pressure diastolic 2023-05-27 08:00:00 76 mm[Hg] [facility] height 2023-05-01 08:00:00 60.5 [in_i] [facility] weight 2023-05-01 08:00:00 139 [lb_av] [facility] temperature 2023-05-01 08:00:00 97.2 [degF] [facility] bmi 2023-05-01 08:00:00 26.7 kg/m2 [facility] oximetry 2023-05-01 08:00:00 99 % [facility] respiratory rate 2023-05-01 08:00:00 16 /min [facility] blood pressure systolic 2023-05-01 08:00:00 139 mm[Hg] [facility] blood pressure diastolic 2023-05-01 08:00:00 76 mm[Hg] [facility] Systolic blood pressure 2023-03-23 00:00:00 112 mm[Hg] [facility] Diastolic blood pressure 2023-03-23 00:00:00 77 mm[Hg] [facility] Heart rate 2023-03-23 00:00:00 71 /min [facility] Body temperature 2023-03-23 00:00:00 36.94 [place] [facility] Respiratory rate 2023-03-23 00:00:00 16 /min [facility] Oxygen saturation in Arterial blood by Pulse oximetry 2023-03-23 00:00:00 97 /min [facility] Body height 2023-03-22 21:13:00 152.4 cm [facility] Body weight 2023-03-22 21:13:00 63.05 kg [facility] BMI 2023-03-22 21:13:00 27.15 kg/m2 [facility] height 2022-10-03 11:40:00 60.5 [in_i] [facility] weight 2022-10-03 11:40:00 152.6 [lb_av] [facility] temperature 2022-10-03 11:40:00 98.3 [degF] [facility] bmi 2022-10-03 11:40:00 29.31 kg/m2 [facility] oximetry 2022-10-03 11:40:00 100 % [facility] respiratory rate 2022-10-03 11:40:00 18 /min [facility] blood pressure systolic 2022-10-03 11:40:00 138 mm[Hg] [facility] blood pressure diastolic 2022-10-03 11:40:00 80 mm[Hg] [facility] Systolic blood pressure 2022-06-20 16:30:00 106 mm[Hg] [facility] Diastolic blood pressure 2022-06-20 16:30:00 72 mm[Hg] [facility] Heart rate 2022-06-20 16:30:00 77 /min [facility] Body temperature 2022-06-20 16:30:00 36.67 [facility] Body height 2022-06-20 16:30:00 152.4 cm [facility] Body weight 2022-06-20 16:30:00 72.848 kg [facility] BMI 2022-06-20 16:30:00 31.37 kg/m2 [facility] Oxygen saturation in Arterial blood by Pulse oximetry 2022-06-20 16:30:00 98 /min [facility] height 2022-01-31 11:20:00 60.5 [in_i] [facility] weight 2022-01-31 11:20:00 161 [lb_av] [facility] temperature 2022-01-31 11:20:00 98.5 [degF] [facility] bmi 2022-01-31 11:20:00 30.92 kg/m2 [facility] oximetry 2022-01-31 11:20:00 99 % [facility] respiratory rate 2022-01-31 11:20:00 16 /min [facility] blood pressure systolic 2022-01-31 11:20:00 134 mm[Hg] [facility] blood pressure diastolic 2022-01-31 11:20:00 86 mm[Hg] [facility] height 2022-01-03 11:00:00 60 [in_i] [facility] weight 2022-01-03 11:00:00 154 [lb_av] [facility] bmi 2022-01-03 11:00:00 30.07 kg/m2 [facility] Systolic blood pressure 2021-12-20 14:27:00 102 mm[Hg] [facility] Diastolic blood pressure 2021-12-20 14:27:00 71 mm[Hg] [facility] Heart rate 2021-12-20 14:27:00 85 /min [facility] Body temperature 2021-12-20 14:27:00 36.33 [facility] Body height 2021-12-20 14:27:00 152.4 cm [facility] Body weight 2021-12-20 14:27:00 70.761 kg [facility] BMI 2021-12-20 14:27:00 30.47 kg/m2 [facility] BP Diastolic 2021-11-20 00:00:00 60 mm[Hg] [facility] Height 2021-11-20 00:00:00 60 [in_i] [facility] BMI (Body Mass Index) 2021-11-20 00:00:00 31.2 kg/m2 [facility] BP Systolic 2021-11-20 00:00:00 100 mm[Hg] [facility] Body Weight 2021-11-20 00:00:00 160 [lb_av] [facility] Systolic blood pressure 2021-06-21 15:58:00 123 mm[Hg] [facility] Diastolic blood pressure 2021-06-21 15:58:00 83 mm[Hg] [facility] Heart rate 2021-06-21 15:58:00 81 /min [facility] Body height 2021-06-21 15:58:00 152.4 cm [facility] Body weight 2021-06-21 15:58:00 74.118 kg [facility] BMI 2021-06-21 15:58:00 31.91 kg/m2 [facility] Systolic blood pressure 2021-03-22 14:11:00 125 mm[Hg] [facility] Diastolic blood pressure 2021-03-22 14:11:00 88 mm[Hg] [facility] Heart rate 2021-03-22 14:11:00 99 /min [facility] Body temperature 2021-03-22 14:11:00 36.67 [facility] Body height 2021-03-22 14:11:00 152.4 cm [facility] Body weight 2021-03-22 14:11:00 78.472 kg [facility] BMI 2021-03-22 14:11:00 33.79 kg/m2 [facility] Systolic blood pressure 2021-03-02 22:48:00 129 mm[Hg] [facility] Diastolic blood pressure 2021-03-02 22:48:00 91 mm[Hg] [facility] Heart rate 2021-03-02 22:48:00 81 /min [facility] Body temperature 2021-03-02 22:48:00 36.67 [place] [facility] Respiratory rate 2021-03-02 22:48:00 17 /min [facility] Body height 2021-03-02 22:48:00 154.9 cm [facility] Body weight 2021-03-02 22:48:00 78.019 kg [facility] BMI 2021-03-02 22:48:00 32.50 kg/m2 [facility] Oxygen saturation in Arterial blood by Pulse oximetry 2021-03-02 22:48:00 99 /min [facility] Systolic blood pressure 2020-12-08 14:42:00 137 mm[Hg] [facility] Diastolic blood pressure 2020-12-08 14:42:00 88 mm[Hg] [facility] Heart rate 2020-12-08 14:42:00 82 /min [facility] Body height 2020-12-08 14:42:00 152.4 cm [facility] Body weight 2020-12-08 14:42:00 89.268 kg [facility] BMI 2020-12-08 14:42:00 38.43 kg/m2 [facility] Temperature Oral (F) 2020-10-27 17:02:00 98.9 F [facility] Heart Rate 2020-10-27 17:02:00 [facility] Respitory Rate 2020-10-27 17:02:00 [facility] Systolic (mm Hg) 2020-10-27 17:02:00 [facility] Diastolic (mm Hg) 2020-10-27 17:02:00 [facility] Temperature Oral (F) 2020-10-27 13:01:00 99.1 F [facility] Heart Rate 2020-10-27 13:01:00 [facility] Systolic (mm Hg) 2020-10-27 13:01:00 [facility] Diastolic (mm Hg) 2020-10-27 13:01:00 [facility] Respitory Rate 2020-10-27 13:01:00 [facility] Temperature Oral (F) 2020-10-27 10:03:00 98.7 F [facility] Heart Rate 2020-10-27 10:03:00 [facility] Systolic (mm Hg) 2020-10-27 10:03:00 [facility] Diastolic (mm Hg) 2020-10-27 10:03:00 [facility] Respitory Rate 2020-10-27 04:40:00 [facility] Height 2020-10-24 12:55:00 152.4 cm [facility] Weight 2020-10-24 12:55:00 [facility] BMI Calculated 2020-10-24 12:55:00 [facility] Heart Rate 2020-10-20 17:27:00 [facility] Systolic (mm Hg) 2020-10-20 17:27:00 [facility] Diastolic (mm Hg) 2020-10-20 17:27:00 [facility] Height 2020-10-19 18:29:00 152.4 cm [facility] Weight 2020-10-19 18:29:00 [facility] BMI Calculated 2020-10-19 18:29:00 [facility] Systolic blood pressure 2020-10-19 10:39:00 146 mm[Hg] Location: LUE; Position: Sitting [facility] Diastolic blood pressure 2020-10-19 10:39:00 87 mm[Hg] Location: LUE; Position: Sitting [facility] Body height 2020-10-19 10:39:00 60 [in_us] [facility] Weight 2020-10-19 10:39:00 218 [lb_av] [facility] Body mass index (BMI) [Ratio] 2020-10-19 10:39:00 42.58 kg/m2 [facility] Body temperature 2020-10-19 10:39:00 96.2 [degF] Method: Temporal [facility] Heart Rate 2020-10-19 10:39:00 83 /min [facility] Body temperature 2020-09-07 09:55:00 96.7 [degF] Method: Temporal [facility] Heart Rate 2020-09-07 09:55:00 105 /min [facility] Systolic blood pressure 2020-09-07 09:55:00 130 mm[Hg] Location: LUE; Position: Sitting [facility] Diastolic blood pressure 2020-09-07 09:55:00 85 mm[Hg] Location: LUE; Position: Sitting [facility] Body height 2020-09-07 09:55:00 60 [in_us] [facility] Weight 2020-09-07 09:55:00 221.8 [lb_av] [facility] Body mass index (BMI) [Ratio] 2020-09-07 09:55:00 43.32 kg/m2 [facility] Systolic blood pressure 2020-07-20 09:38:00 128 mm[Hg] Location: LUE; Position: Sitting [facility] Diastolic blood pressure 2020-07-20 09:38:00 86 mm[Hg] Location: LUE; Position: Sitting [facility] Body height 2020-07-20 09:38:00 60 [in_us] [facility] Weight 2020-07-20 09:38:00 214 [lb_av] [facility] Body mass index (BMI) [Ratio] 2020-07-20 09:38:00 41.79 kg/m2 [facility] Body temperature 2020-07-20 09:38:00 97 [degF] Method: Temporal [facility] Heart Rate 2020-07-20 09:38:00 106 /min [facility] Procedures Procedure Date / Time Performed Performing Clinician Source SCREENING MAMMOGRAPHY BI 2-V IEW BREAST INC CAD 2024-01-06 00:00:00 [facility] US PELVIC NONOBSTETRIC REAL- TIME IMAGE COMPLETE 2024-01-06 00:00:00 [facility] POCT TEST 2023-03-22 23:15[facility] 2023-03-22 22:07:04 [facility] ASSIGNMENT OF BENEFITS 2023-03-22 21:50:37 Doctor Unassigned, [place] [facility] ASSIGNMENT OF BENEFITS 2023-03-22 21:50:34 Doctor Unassigned, [place] [facility] CONSENT/REFUSAL FOR DIAGNOSI S AND TREATMENT 2023-03-22 21:49:14 Doctor Unassigned, [place] [facility] LIPASE 2023-03-22 21:24:00 [facility] COMP. METABOLIC PANEL ([id number]) 2023-03-22 21:24:00 [facility] CBC WITH DIFF 2023-03-22 21:24:00 [facility] URINALYSIS 2023-03-22 21:24:00 [facility] unlisted imaging order 2021-11-20 00:00:00 [facility] MAMMO, screening, bilateral 2021-11-20 00:00:00 [facility] CONSENT/REFUSAL FOR DIAGNOSI S AND TREATMENT 2021-03-02 05:01:00 Doctor Unassigned, [place] [facility] Gastric Bypass for Obesity 2020-11-04 00:00:00 [facility] . [facility] - COVID-19/SARS-Cov-2 2020-08-08 9 00:00:00 [facility] . [facility] - COVID-19/SARS-Cov-2 2020-07-08 4 00:00:00 [facility] [Q] COMPREHENSIVE METABOLIC PANEL W/eGFR (REFL) 2020-07-20 00:00:00 [facility] [Q] QUESTASSURED 25-OH VIT D , (D2,D3), LC/MS/MS 2020-07-20 00:00:00 [facility] [QL] CBC (INCLUDES DIFF/PLT) 2020-07-20 00:00:00 [facility] [QL] FOLATE, SERUM 2020-07-20 00:00:00 [facility] [QL] HEMOGLOBIN A1c 2020-07-20 00:00:00 [facility] [QL] IRON AND TOTAL IRON BIN DING CAPACITY 2020-07-20 00:00:00 [facility] [QL] LIPID PANEL 2020-07-20 00:00:00 [facility] [QL] PTH, INTACT (WITHOUT CALCIUM) 07-20 00:00:00 [facility] [QL] TSH, 3RD GENERATION W/R EFLEX TO FT4 2020-07-20 00:00:00 [facility] [QL] VITAMIN A (RETINOL) 2020-07-20 00:00:00 [facility] [QL] VITAMIN B1, WHOLE BLOOD 2020-07-20 00:00:00 [facility] [QL] VITAMIN B12 2020-07-20 00:00:00 [facility] [QL] VITAMIN E (TOCOPHEROL) 2020-07-20 00:00:00 [facility] Breast Surgery - Augmentation [facility] Medical Breast reduction, bilateral [facility] section [facility] EGD - Esophagogastroduodenoscopy [facility] Operation [facility] Plan of Care Planned Activity Planned Date Details Comments Source Future Scheduled Test 2020-08-29 00:00:00 . [facility] - COVID-19/SARS-Cov-2 [code = . [facility] - COVID-19/SARS-Cov-2] [facility] Future Scheduled Test 2020-08-22 00:00:00 . [facility] - COVID-19/SARS-Cov-2 [code = . [facility] - COVID-19/SARS-Cov-2] [facility] Encounters Start Date/Time End Date/Time Encounter Type Admission Type Attending Clinicians Care Facility Care Department Encounter ID Source 2024-05-25 09:31:00 Outpatient Jacobson, Sue [facility] [id number] [facility] 2024-02-28 11:09:00 Outpatient JacobsonSue juarez [facility] [id number] [facility] 2023-11-08 14:14:00 Outpatient JacobsonSue juarez [facility] ST[facility] [id number] [facility] 2023-09-02 15:08:01 Outpatient Sue Jacobson STLMLC STLMLC [id number] [facility] 2023-08-27 12:46:00 Outpatient JacobsonSue juarez STLMLC STLMLC [id number] [facility] 2023-03-12 16:10:00 Outpatient JacobsonSue juarez STLMLC STLMLC [id number] [facility] 2023-01-28 14:23:01 Outpatient Sue Jacobson STLMLC STLMLC [id number] [facility] 2022-10-01 08:25:01 Outpatient Sue Jacobson STLMLC STLMLC [id number] [facility] 2022-06-20 08:33:04 Outpatient [facility] [id number] [facility] 2022-06-19 16:50:15 Outpatient [facility] [id number] [facility] 2022-06-15 15:47:12 Outpatient [facility] [id number] [facility] 2022-06-14 12:47:18 Outpatient [facility] [id number] [facility] 2022-05-01 14:38:00 Outpatient [facility] [id number] [facility] 2022-01-29 13:38:02 Outpatient JacobsonSue juarez STLMLC STLMLC [id number] [facility] 2022-01-01 14:27:03 Outpatient JacobsonSue juarez STLMLC STLMLC [id number] [facility] 2021-12-27 14:46:04 [facility]patient [facility] [id number] [facility] 2021-06-21 10:53:32 Outpatient [facility] [id number] [facility] 2021-06-21 10:52:37 Outpatient LINDA KELLY [facility] [id number] [facility] 2020-12-08 10:24:31 Outpatient LINDA KELLY [facility] [id number] [facility] 2020-11-24 01:03:55 Outpatient LINDA KELLY [facility] [id number] [facility] 2020-11-12 03:59:26 Outpatient LINDA KELLY [facility] [id number] [facility] 2024-09-02 09:45:00 2024-09-02 09:45:00 Outpatient LINDA KELLY [facility] [id number] [facility] 2024-05-25 00:00:00 2024-05-25 00:00:00 (WELLNESS) [facility] [id number] [facility] 2024-03-26 00:00:00 2024-03-26 00:00:00 OFFICE VISIT ESTAB PT LEVEL 4 [facility] [id number] [facility] 2024-02-21 00:00:00 2024-02-21 00:00:00 Yadi Peck MD: [id number], [address], [place] [address] , Ph. [facility] - GC_SWHAOMC_ Cook Office* [id number] [facility] 2024-01-07 00:00:00 2024-01-07 00:00:00 (TEL) [facility] [id number] [facility] 2024-01-06 00:00:00 2024-01-06 00:00:00 Yadi Peck MD: [id number], [address], [place] [address] , Ph. [facility] - GC_[facility]OM[facility]_ Cook Office* [id number] [facility] 2023-12-06 00:00:00 2023-12-06 00:00:00 (TEL) STLMLC STLC [id number] [facility] 2023-10-23 08:45:00 2023-10-23 08:45:00 Outpatient LINDA KELLY [facility] [id number] [facility] 2023-10-11 07:30:00 2023-10-11 07:30:00 Outpatient LINDA KELLY [facility] [id number] [facility] 2023-09-02 00:00:00 2023-09-02 00:00:00 OFFICE VISIT ESTAB PT LEVEL 4 STLMLC STLC [id number] [facility] 2023-08-28 09:00:00 2023-08-28 10:44:53 Office Visit Linda Kelly [place] [id number] [facility] 2023-07-12 00:00:00 2023-07-12 00:00:00 (TEL) STLC STLC [id number] [facility] 2023-07-05 00:00:00 2023-07-05 00:00:00 Outpatient [facility] _Ball_C PRIV PRIV [id number] [facility] 2023-07-04 00:00:00 2023-07-04 00:00:00 Outpatient [facility] _Ball_C PRIV PRIV [id number] [facility] 2023-07-03 00:00:00 2023-07-03 00:00:00 Outpatient GC[facility]_ Ball_C PRIV PRIV [id number] [facility] 2023-06-26 10:45:00 2023-06-26 10:45:00 Outpatient LINDA KELLY [facility] [id number] [facility] 2023-05-27 00:00:00 2023-05-27 00:00:00 (WELLNESS) Wellness Visit STLMLC STLC [id number] [facility] 2023-05-01 00:00:00 2023-05-01 00:00:00 OFFICE VISIT ESTAB PT LEVEL 4 STLMLC STLC [id number] [facility] 2023-03-22 16:15:00 2023-03-22 19:26:00 Emergency Jason TXLLEE [facility] [id number] [facility] 2023-03-22 16:15:00 2023-03-22 19:26:00 Emergency X JASON [facility] ERT [id number] [facility] 2022-11-22 00:00:00 2022-11-22 00:00:00 Outpatient GC_[facility]_ Ball_C PRIV PRIV [id number] [facility] 2022-11-22 00:00:00 2022-11-22 00:00:00 Outpatient [facility]_ Ball_C PRIV PRIV [id number] [facility] 2022-11-21 00:00:00 2022-11-21 00:00:00 Outpatient GC_[facility]_ Ball_C PRIV PRIV [id number] [facility] 2022-10-03 00:00:00 2022-10-03 00:00:00 OFFICE VISIT ESTAB PT LEVEL 3 STLMLC STLC [id number] [facility] 2022-09-11 00:00:00 2022-09-11 00:00:00 (TEL) STLC STLC [id number] [facility] 2022-07-30 00:00:00 2022-07-30 00:00:00 (TEL) STLC STLC [id number] [facility] 2022-06-20 09:45:00 2022-06-20 11:43:23 Office Visit Robin, Linda [facility] [id number] [facility] 2022-04-12 00:00:00 2022-04-12 00:00:00 (TEL) STLMLC STLMLC [id number] [facility] 2022-03-15 00:00:00 2022-03-15 00:00:00 (TEL) STLMLC STLMLC [id number] [facility] 2022-01-31 00:00:00 2022-01-31 00:00:00 OFFICE VISIT EST PT LEVEL 3 STLMLC STLMLC [id number] [facility] 2022-01-03 00:00:00 2022-01-03 00:00:00 OFFICE VISIT NEW PT LEVEL 4 STLMLC STLMLC [id number] [facility] 2021-12-20 09:00:00 2021-12-20 10:48:06 Office Visit Linda Kelly [facility] [id number] [facility] 2021-11-20 01:11:00 2021-11-20 01:11:00 Outpatient GC[facility]_ Ball_C [facility] [id number] [facility] 2021-11-20 00:00:00 2021-11-20 00:00:00 Outpatient GC[facility]_ Ball_C [facility] [id number] [facility] 2021-11-20 00:00:00 2021-11-20 00:00:00 Outpatient Nini Henry [facility] [id number] 2021-11-20 00:00:00 2021-11-20 00:00:00 Nini Henry, MORNING BABYSITTER: [address], [address], [place] [address] , Ph. [facility]_ Cook Office* [id number] [facility] 2021-11-17 03:12:00 2021-11-17 03:12:00 Outpatient GC_[facility] _Ball_C [facility] [id number] [facility] 2021-11-14 01:30:00 2021-11-14 01:30:00 Outpatient GC_[facility]_ Ball_C [facility] [id number] [facility] 2021-06-21 10:45:00 2021-06-21 11:01:39 Office Visit Linda Kelly [facility] 1..114 [id number] [facility] 2021-03-22 09:08:03 2021-03-22 09:45:04 Office Visit Linda Kelly [facility] 1.114 [id number] [facility] 2021-03-02 16:30:00 2021-03-02 16:30:00 Outpatient BRIGITTE OWEN [facility] [id number] [facility] 2021-03-02 14:50:22 2021-03-02 15:50:22 Nurse Visit Therapy, Adc Covid Infusion Brigitte Silver [facility] 1.114 [id number] [id number] [id number] [facility] 2021-03-02 00:00:00 2021-03-02 00:00:00 Orders Only Doctor Unassigned, [place] [facility] 1.114 [id number] [id number] [id number] [facility] 2020-12-08 09:40:31 2020-12-08 10:24:33 Office Visit Linda Kelly [facility] [id number] [id number] [facility] 2020-10-27 16:19:00 2020-10-27 20:25:00 Inpatient nullFlavo r [facility] [id number] Jannie Bolton 2020-10-27 11:19:00 2020-10-27 15:25:00 Inpatient U LINDA KELLY [facility] ZULEYKA [address] [facility] 2020-10-19 10:00:00 2020-10-19 10:00:00 Appointmen t; LINDA KELLY M.D. WILSON, ERIK, M.D. [facility] ([facility] [id number] [facility] 2020-09-07 09:30:00 2020-09-07 09:30:00 Appointmen t; LINDA KELLY M.D. WILSON, ERIK, M.D. [facility] ([facility] [id number] [facility] 2020-07-20 09:00:00 2020-07-20 09:00:00 Appointmen t; LINDA KELLY M.D. WILSON, ERIK, M.D. [facility] [id number] [facility] Results Test Description Test Time Test Comments Results Result Co mments Source COMPREHENSIVE METABOLIC PANEL(CMP)2023-05-08 00:00:00* Test Item Value Reference Range Interpretation Comme nts ALBUMIN (test code = 1751-7) 3.9 g/dL See_Comment N [Automated [employer]] The system which generated this result transmitted reference range: 3.6-5.1 g/dL. The reference range was not used to interpret this result as normal/abnormal. ALBUMIN/GLOBULIN RATIO (test code = 1759-0) 1.5 (calc) See_Comment N [Automated [employer]] The system which generated this result transmitted reference range: 1.0-2.5 (calc). The reference range was not used to interpret this result as normal/abnormal. ALKALINE PHOSPHATASE (test code = 6768-6) 102 U/L See_Comment N [Automated message] The system which generated this result transmitted reference range: 31-125 U/L. The reference range was not used to interpret this result as normal/abnormal. ALT (test code = 1742-6) 9 U/L See_Comment N [Automated messa ge] The system which generated this result transmitted reference range: 6-29 U/L. The reference range was not used to interpret this result as normal/abnormal. AST (test code = 1920-8) 12 U/L See_Comment N [Automated messa ge] The system which generated this result transmitted reference range: 10-35 U/L. The reference range was not used to interpret this result as normal/abnormal. BILIRUBIN, TOTAL (test code = 1974-2) 0.5 mg/dL See_Comment N [Automated message] The system which generated this result transmitted reference range: 0.2-1.2 mg/dL. The reference range was not used to interpret this result as normal/abnormal. BUN/CREATININE RATIO (test code = 3097-3) SEE NOTE: (calc) See_Comment [Automated message] The system which generated this result transmitted reference range: 6-22 (calc). The reference range was not used to interpret this result as normal/abnormal. CALCIUM (test code = 40537-1) 8.8 mg/dL See_Comment N [Automated messa ge] The system which generated this result transmitted reference range: 8.6-10.2 mg/dL. The reference range was not used to interpret this result as normal/abnormal. CARBON DIOXIDE (test code = 2027-9) 30 mmol/L See_Comment N [Automated messa ge] The system which generated this result transmitted reference range: 20-32 mmol/L. The reference range was not used to interpret this result as normal/abnormal. CHLORIDE (test code = 5-0) 105 mmol/L See_Comment N [Automated messa ge] The system which generated this result transmitted reference range: 98-110 mmol/L. The reference range was not used to interpret this result as normal/abnormal. CREATININE (test code = 2160-0) 0.54 mg/dL See_Comment N [Automated messa ge] The system which generated this result transmitted reference range: 0.50-0.99 mg/dL. The reference range was not used to interpret this result as normal/abnormal. GLOBULIN (test code = 59550-2) 2.6 g/dL (calc) See_Comment N [Automated message] The system which generated this result transmitted reference range: 1.9-3.7 g/dL (calc). The reference range was not used to interpret this result as normal/abnormal. GLUCOSE (test code = 2345-7) 89 mg/dL See_Comment N [Automated messa ge] The system which generated this result transmitted reference range: 65-99 mg/dL. The reference range was not used to interpret this result as normal/abnormal. POTASSIUM (test code = 2823-3) 4.3 mmol/L See_Comment N [Automated messa ge] The system which generated this result transmitted reference range: 3.5-5.3 mmol/L. The reference range was not used to interpret this result as normal/abnormal. PROTEIN, TOTAL (test code = 2885-2) 6.5 g/dL See_Comment N [Automated messa ge] The system which generated this result transmitted reference range: 6.1-8.1 g/dL. The reference range was not used to interpret this result as normal/abnormal. SODIUM (test code = 2951-2) 139 mmol/L See_Comment N [Automated messa ge] The system which generated this result transmitted reference range: 135-146 mmol/L. The reference range was not used to interpret this result as normal/abnormal. UREA NITROGEN (BUN) (test code = 3094-0) 9 mg/dL See_Comment N [Automated message] The system which generated this result transmitted reference range: 7-25 mg/dL. The reference range was not used to interpret this result as normal/abnormal. PATHOLOGY [id number] 00:00:00PATHOLOGISTCONSULT, SPECIMEN A 2023-05-08 00:00:00A COMMENTA DIAGNOSISA MICRO DESCRIPTIONA SOURCEPOCT [id number] 23:15:00* Test Item Value Reference Range Interpretation Comme nts POCT PREG (test code = 1605) Negative On board controls acceptable with C Line (test code = 3574) Yes POCT PREG LOT # (test code = 3575) [id number] POCT PREG TEST DATE ( test code = 3575) [id number] Lab Interpretation (test cod e = 69064-2) Normal [facility] [id number] 09:33:00* Test Item Value Reference Range Interpretation Comme nts Glucose Lvl (test code = Glucose Lvl) 81 70-99 [facility] [id number] 13:59:00* Test Item Value Reference Range Interpretation Comme nts Potassium Lvl (test code = P otassium Lvl) 3.8 3.5-5.1 [id number] 13:59:00* Test Item Value Reference Range Interpretation Comme nts WBC (test code = WBC) 7.4 3.7-10.4 [facility] [id number] 09:24:00* Test Item Value Reference Range Interpretation Comme nts Glucose Lvl (test code = Glucose Lvl) 130 70-99 [id number] 09:24:00* Test Item Value Reference Range Interpretation Comme nts WBC (test code = WBC) 8.0 3.7-10.4 [facility] [id number] 16:44:00* Test Item Value Reference Range Interpretation Comme nts Glucose Lvl (test code = Glucose Lvl) 67 70-99 [facility] [id number] 16:44:00* Test Item Value Reference Range Interpretation Comme nts Segs (test code = Segs) 70.4 45.0-75.0 [id number] 16:44:00* Test Item Value Reference Range Interpretation Comme nts Coronavirus (COVID-19) [place] (test code = Coronavirus (COVID-19) [place]) Not Detected (10/20/20 11:44 AM) [facility] [id number] 16:44:00* Test Item Value Reference Range Interpretation Comme nts Hgb A1C (test code = Hgb A1C) 5.6 [facility][] LIPID [id number] 10:46:00* Test Item Value Reference Range Interpretation Comme nts CHOLESTEROL, TOTAL; Normal (test code = 2093-3) 198 mg/dl <200 N HDL CHOLESTEROL; Normal (test code = 2085-9) 62 mg/dl > OR = 50 N TRIGLYCERIDES; Normal (test code = 2571-8) 130 mg/dl <150 N LDL-CHOLESTEROL; Above High Threshold (test code = 18765-0) 111 {MG/DL KAREN} Reference range: <100 Desirable range <100 mg/dL for primary prevention; <70 mg/dL for patients with CHD or diabetic patients with > or = 2 CHD risk factors. LDL-C is now calculated using the Kim calculation, which is a validated novel method providing better accuracy than the Friedewald equation in the estimation of LDL-C. Paul SS et al. PEDRO. 2013;310(19): 7969-6927 (http://education.Bitly.GoodGuide/f aq/KMY349) CHOL/HDLC RATIO (test code = CHOL/HDLC RATIO) 3.2 {CALC} <5.0 N NON HDL CHOLESTEROL (test code = NON HDL CHOLESTEROL) 136 {MG/DL KAREN} <130 For patients with diabetes plus 1 major ASCVD risk factor, treating to a non-HDL-C goal of <100 mg/dL (LDL-C of <70 mg/dL) is considered a therapeutic option. [facility][Q] COMPREHENSIVE METABOLIC PANEL W/eGFR (REFL)2020-07-20 10:46:00 * Test Item Value Reference Range Interpretation Comme nts GLUCOSE; Normal (test code = 1547-9) 87 mg/dl 65-139 N Non-fasting reference interval UREA NITROGEN (BUN) (test code = UREA NITROGEN (BUN)) 14 mg/dl 7-25 N CREATININE (test code = CREATININE) 0.71 mg/dl 0.50-1.10 N eGFR NON-AFR. KENYAN (test code = eGFR NON-AFR. KENYAN) 105 {ML/MIN/1.7} > OR = 60 N eGFR (test code = eGFR ) 122 {ML/MIN/1.7} > OR = 60 N BUN/CREATININE RATIO (test code = BUN/CREATININE RATIO) NOT APPLICABLE 6-22 SODIUM (test code = SODIUM) 137 mmol/L 135-146 N POTASSIUM (test code = POTASSIUM) 4.8 mmol/L 3.5-5.3 N CHLORIDE (test code = CHLORIDE) 102 mmol/L 98-110 N CARBON DIOXIDE (test code = CARBON DIOXIDE) 29 mmol/L 20-32 N CALCIUM (test code = CALCIUM) 9.2 mg/dl 8.6-10.2 N PROTEIN, TOTAL (test code = PROTEIN, TOTAL) 7.0 g/dl 6.1-8.1 N ALBUMIN (test code = ALBUMIN) 3.9 g/dl 3.6-5.1 N GLOBULIN (test code = GLOBULIN) 3.1 {G/DL CALC} 1.9-3.7 N ALBUMIN/GLOBULIN RATIO (test code = ALBUMIN/GLOBULIN RATIO) 1.3 {CALC} 1.0-2.5 N BILIRUBIN, TOTAL; Normal (test code = 88192-8) 0.6 mg/dl 0.2-1.2 N ALKALINE PHOSPHATASE (test code = ALKALINE PHOSPHATASE) 103 u/l 31-125 N AST; Normal (test code = 1916-6) 16 u/l 10-30 N ALT; Normal (test code = 1742-6) 25 u/l 6-29 N [facility][QL] IRON AND TOTAL IRON BINDING [id number] 10:46:00* Test Item Value Reference Range Interpretation Comme [facility] IRON, TOTAL (test code = IRON, TOTAL) 116 {mcg/dl} 40-190 N IRON BINDING CAPACITY (test code = IRON BINDING CAPACITY) 476 {mcg/dL ca} 250-450 % SATURATION (test code = % SATURATION) 24 {% CALC} 16-45 N [facility][QL] CBC (INCLUDES DIFF/PLT)2020-07-20 10:46:00* Test Item Value Reference Range Interpretation Comme nts WHITE BLOOD CELL COUNT (test code = WHITE BLOOD CELL COUNT) 7.9 {Thousand/u} 3.8-10.8 N RED BLOOD CELL COUNT (test code = RED BLOOD CELL COUNT) 4.66 {Million/uL} 3.80-5.10 N HEMOGLOBIN; Normal (test code = 97715-5) 12.8 g/dl 11.7-15.5 N HEMATOCRIT; Normal (test code = 4544-3) 40.6 % 35.0-45.0 N MCV; Normal (test code = 787-2) 87.1 fL 80.0-100.0 N MCHC; Below Low Threshold (test code = 03052-6) 31.5 g/dl 32.0-36.0 N RDW; Normal (test code = 788-0) 14.1 % 11.0-15.0 N PLATELET COUNT; Normal (test code = 777-3) 393 {Thousand/u} 140-400 N MPV; Normal (test code = 82674-4) 10.7 fL 7.5-12.5 N ABSOLUTE NEUTROPHILS (test code = ABSOLUTE NEUTROPHILS) 5475 {cells/uL} 9735-9401 N ABSOLUTE LYMPHOCYTES (test code = ABSOLUTE LYMPHOCYTES) 1817 {cells/uL} 850-3900 N ABSOLUTE MONOCYTES (test code = ABSOLUTE MONOCYTES) 482 {cells/uL} 200-950 N ABSOLUTE EOSINOPHILS (test code = ABSOLUTE EOSINOPHILS) 79 {cells/uL} 15-500 N ABSOLUTE BASOPHILS (test code = ABSOLUTE BASOPHILS) 47 {cells/uL} 0-200 N NEUTROPHILS (test code = NEUTROPHILS) 69.3 % N LYMPHOCYTES (test code = LYMPHOCYTES) 23.0 % N MONOCYTES; Normal (test code = 89946-9) 6.1 % N EOSINOPHILS; Normal (test code = 98548-4) 1.0 % N BASOPHILS; Normal (test code = 25242-6) 0.6 % N [facility][QL] PTH, INTACT (WITHOUT CALCIUM)2020-07-20 10:46:00* Test Item Value Reference Range Interpretation Comme [facility] PARATHYROID HORMONE, INTACT (test code = PARATHYROID HORMONE, INTACT) 72 pg/ml 14-64 Interpretive [facility] Intact PTH Calcium -------Normal Parathyroid Normal NormalHypoparathyroidism Low or Low Normal LowHyperparathyroidism Primary Normal or High High Secondary High Normal or Low Tertiary High HighNon-Parathyroid Hypercalcemia Low or Low Normal High [facility][QL] FOLATE, [id number] 10:46:00* Test Item Value Reference Range Interpretation Comme [facility] FOLATE, SERUM (test code = FOLATE, SERUM) 10.5 ng/ml N Reference Range Low: <3.4 Borderline: 3.4-5.4 Normal: >5.4 [facility][QL] VITAMIN [id number] 10:46:00* Test Item Value Reference Range Interpretation Comme [facility] VITAMIN B12 (test code = VIT FISH B12) 409 pg/ml 200-1100 N [facility][QL] TSH, 3RD GENERATION W/REFLEX TO [id number] 10:46:00* Test Item Value Reference Range Interpretation Comme nts TSH, 3RD GENERATION W/REFLEX TO FT4 (test code = TSH, 3RD GENERATION W/REFLEX TO FT4) 1.28 {MIU/L} N Reference Range > or = 20 Years 0.40-4.50 Ranges First trimester 0.26-2.66 Second trimester 0.55-2.73 Third trimester 0.43-2.91 [facility][QL] HEMOGLOBIN [id number] 10:46:00* Test Item Value Reference Range Interpretation Comme nts HEMOGLOBIN A1c; Normal (test code = 4548-4) 5.4 {% of total} <5.7 N For the purpose of screening for the presence ofdiabetes: <5.7% Consistent with the absence of diabetes5.7-6.4% Consistent with increased risk for diabetes (prediabetes)> or =6.5% Consistent with diabetes This assay result is consistent with a decreased riskof diabetes. Currently, no consensus exists regarding use ofhemoglobin A1c for diagnosis of diabetes in children. According to [place] [employer] (ADA)guidelines, hemoglobin A1c <7.0% represents optimalcontrol in non- diabetic patients. Differentmetrics may apply to specific patient populations. Standards of [facility]). [facility][QL] VITAMIN E (TOCOPHEROL)2020-07-20 10:46:00* Test Item Value Reference Range Interpretation Comme nts ALPHA-TOCOPHEROL (test code = ALPHA-TOCOPHEROL) 13.3 mg/L Reference Rang e 5.7-19.9 mg/L Levels of alpha-tocopherol <5 mg/L are consistent with Vitamin E deficiency in adults.Vitamin supplementation within 24 hours prior to blood draw may affect the accuracy of results. This test was developed and its analytical performance characteristics have been determined by [employer]. It has not been cleared or approved by theFDA. This assay has been validated pursuant to the CLIA regulations and is used for clinical purposes. RTUF-VEJXB-OGHIVB BETZAIDA (test code = XGDW-YCUQI-HOMMEJ BETZAIDA) 1.3 mg/L <4.4 This test was de veloped and its analytical performance characteristics have been determined by [employer]. It has not been cleared or approved by theFDA. This assay has been validated pursuant to the CLIA regulations and is used for clinical purposes. [facility][QL] VITAMIN B1, WHOLE [id number] 10:46:00* Test Item Value Reference Range Interpretation Comme [facility] VITAMIN B1, WHOLE BLOOD (test code = VITAMIN B1, WHOLE BLOOD) 174 nmol/L 78-185 Vitamin suppleme ntation within 24 hours prior toblood draw may affect the accuracy of results. This test was developed and its analytical performance characteristics have been determined by [employer]. It has not been cleared or approved by theFDA. This assay has been validated pursuant to the CLIA regulations and is used for clinical purposes. [facility][QL] VITAMIN A (RETINOL)2020-07-20 10:46:00* Test Item Value Reference Range Interpretation Comme [facility] VITAMIN A (test code = VITAMIN A) 67 {mcg/dl} 38-98 Clin Chem Vo l. 34.No.8. [id number]. 1998Vitamin supplementation within 24 hours prior to blood draw may affect the accuracy of results. This test was developed and its analytical performance characteristics have been determined by [employer]. It has not been cleared or approved by theFDA. This assay has been validated pursuant to the CLIA regulations and is used for clinical purposes. [facility][Q] QUESTASSURED 25-OH VIT D, (D2,D3), LC/MS/[id number] 10:46:00 * Test Item Value Reference Range Interpretation Comme nts VITAMIN D, 25-OH, TOTAL (test code = VITAMIN D, 25-OH, TOTAL) 34 ng/ml 30-100 (Note) Vitamin D , 25-Hydroxy reports concentrations of two common forms, 25-OHD2 and 25-OHD3. 25-OHD3 indicates both endogenous production and supplementation. 25-OHD2 is an indicator of exogenous sources such as diet or supplementation. Therapy is based on measurement of Total 25-OHD, with levels <20 ng/mL indicative of Vitamin D deficiency, while levels between 20 ng/mL and 30 ng/mL suggest insufficiency. Optimal levels are > or = 30 ng/mL. Vitamin D is fat-soluble and therefore inadvertent or intentional ingestion of excessively high amounts could be toxic. Studies in children and adults suggest blood levels would need to exceed 150 ng/mL before there is any concern. Jt MF, Ashley NC, Jun SANDOVAL, et al. Evaluation, treatment and prevention of vitamin D deficiency: an Endocrine Society clinical practice guideline. J Clin Endocrinol Metab. 2011;96(7):1911-30. For additional information, please refer to http://GoTable/faq/BAA840 VITAMIN D, 25-OH, D3 (test code = VITAMIN D, 25-OH, D3) 34 ng/ml Reference range: Not established VITAMIN D, 25-OH, D2 (test code = VITAMIN D, 25-OH, D2) <4.0 (Note)Reference range: Not established This test was developed and its analytical performancecharacteristics have been determined by [employer]. It has not beencleared or approved by the US Food and Drug Administration. Thisassay has been validated pursuant to the CLIA regulation and is usedfor Clinical purposes.MDed [id number] [place] [address],[address] [place] [address] [phone] Chaump, MDSee Note 1 Note 1 For additional information, please refer to http://GoTable/faq/AWI463 (This link is being provided for informational/educational purposes only.) [facility] W/AUTO [id number] 07:35:00* Test Item Value Reference Range Interpretation Comme nts WHITE BLOOD CELL (test code = WBC) [...] pg 27-35 N MEAN CELL HGB CONCETRATION ( test code = MCHC) 30.6 gm/dL 32.2-34.1 L RED CELL DISTRIBUTION WIDTH (test code = RDW) 16.0 % 12.4-16.5 N PLATELET COUNT (test code = PLT) 482 K/mm3 133-385 H IMMATURE PLATELET FRACTION ( test code = IPF) 0.0 % 0.0-10.8 N MEAN PLATELET VOLUME (test c ode = MPV) 11.2 fl 9.1-12.7 N NEUTROPHIL % (test code = NT%) 59.1 [...] = BA#) 0.1 K/mm3 RBC MORPHOLOGY REQUIRED (ibis t code = RBCM) NORMAL NORMAL PLATELET MORPHOLOGY REQUIRED (test code = PLTMR) NORMAL NORMAL - US PELVIS [id number] 00:02:00Patient Name: TASH MUNOZ Unit No: [id number] EXAMS: CPT CODE: [id number] US PELVIS COMPLETE 16286 PROCEDURE: PELVIC ULTRASOUND INDICATION: bleeding. 18 days ago. D C 6 days ago. COMPARISON: 04/13/2019 pelvic ultrasound. TRANSABDOMINAL SCAN: Uterus measures 14.3 x 6.9 x 7.2cm with heterogeneous endometrial stripe thickness up to 2.2 cm. Heterogeneous endometrial fluid isseen. Minimal vascularity of the endometrium seen with Doppler analysis. Posterior round hypoechoicheterogeneous mass once again seen measuring 3.5 x 3.3 x 3.5 cm. Anterior uterine myometrial mass once again seen measuring 2.5 x 1.5 x 2 cm. Neither ovary is visualized. TRANSVAGINAL SCAN: Not performed. IMPRESSION: 1. Thickened heterogeneous endometrium with fluid within consistent with given history of hemorrhage. Mild vascularity is present within. Retained products of conception remains in the differential. 2. Uterine fibroids. 3. Nonvisualization of the ovaries. SL: SG-H ElectronicallySigned by Grant Bearden MD on 04/21/2019 at 0002 Reported and signed by: Grant Bearden MD CC: Genevieve Rodriguez MD; Emmie Anne MD Technologist: Juanita Hamilton RDMS Probe: Trnscrbd D/ (0002) [email or web address] Orig Print D/T: S: 04/21/2019 (0006) [facility] NAME: TASH MUNOZ Radiology Department PHYS: GUTAL. - Emmie Anne [address] M : 1980AGE: 39 SEX: F [place] [address] LOC: F.2654 A PHONE #: [phone] EXAMDATE: 04/20/2019 STATUS: ADM IN FAX #: [phone] RAD NO: Page 1 Signed Report Patient Name: TASH GOFF Unit No: [id number] EXAMS: CPT CODE: [id number] US PELVIS COMPLETE 27315 (Continued) [facility] NAME: TASH MUNOZ Radiology Department PHYS: CADENCEAL. - Emmie Anne [address] : 1980 AGE: 39 SEX: F [place] [address] LOC: F.2654 A PHONE #: [phone] EXAM DATE: 04/20/2019 STATUS: ADM IN FAX #: [phone] RAD NO: Page2 Signed ReportCBC W/AUTO [id number] 18:28:00* Test Item Value Reference Range Interpretation Comme nts WHITE BLOOD CELL (test code = WBC) [...] pg 27-35 N MEAN CELL HGB CONCETRATION ( test code = MCHC) 31.1 gm/dL 32.2-34.1 L RED CELL DISTRIBUTION WIDTH (test code = RDW) 16.4 % 12.4-16.5 N PLATELET COUNT (test code = PLT) 502 K/mm3 133-385 H IMMATURE PLATELET FRACTION ( test code = IPF) 0.0 % 0.0-10.8 N MEAN PLATELET VOLUME (test c ode = MPV) 10.8 fl 9.1-12.7 N MANUAL DIFF REQUIRED (test c ode = MDIFF) YES RBC MORPHOLOGY REQUIRED (ibis t code = RBCM) NORMAL NORMAL PLATELET MORPHOLOGY REQUIRED (test code = PLTMR) NORMAL NORMAL WBC [id number] 18:28:00* Test Item Value Reference Range Interpretation Comme nts TOTAL CELLS COUNTED (test co de = TCC) 100 #CELLS SEGMENTED NEUTROPHILS (test code = SEG) 75 % 56.5-79.4 N LYMPHOCYTE (test code = LYMPH) 12 % 20-40 L ATYPICAL LYMPH (test code = ALYMPH) 3 % MONOCYTE (test code = MON) 7 % 0-8 N EOSINOPHIL (test code = EOS) 2 % 0-4 N BASOPHIL (test code = BASO) 1 % 0-2 N PLATELET ESTIMATE (test code = PLTEST) ADEQUATE ADEQ PLATELET MORPHOLOGY (test co de = PLTMORPH) NORMAL NORMAL UA RFLX MICR CULT IF [id number] 18:19:00* Test Item Value Reference Range Interpretation Comme nts UA COLOR (test code = COLU) YELLOW YELLOW UA APPEARANCE (test code = APPU) Slightly-Cloudy CLEAR UA GLUCOSE DIPSTICK (test code = DGLUU) NEGATIVE NEG UA BILIRUBIN DIPSTICK (test code = BILU) NEGATIVE NEG UA KETONE DIPSTICK (test code = KETU) TRACE NEG A UA SPECIFIC GRAVITY (test code = SGU) 1.017 1.001-1.035 N UA BLOOD DIPSTICK (test code = EDMUNDO) 3+ NEG A UA PH DIPSTICK (test code = DIMAS) 6.0 5-9 UA PROTEIN DIPSTICK (test code = PROU) NEGATIVE NEG UA UROBILINIOGEN DIPSTICK (test code = URO) NEGATIVE mg/dL NEG UA NITRITE DIPSTICK (test code = MEMO) NEG NEG UA LEUKOCYTE ESTERASE DIPSTICK (test code = LEUU) 1+ NEG A UA WBC (test code = WBCU) 41-50 #/hpf NONE SEEN A UA RBC (test code = RBCU) TOO NUMEROUS T O CNT #/hpf NONE SEEN A UA EPITHELIAL CELLS (test code = EPIU) NONE SEEN #/HPF RARE-FEW UA MUCUS (test code = MUCU) RARE NONE SEEN Indication for culture: Suprapubic PainCBC W/AUTO [id number] 18:05:00* Test Item Value Reference Range Interpretation Comme nts WHITE BLOOD CELL (test code = WBC) [...] pg 27-35 N MEAN CELL HGB CONCETRATION ( test code = MCHC) 31.1 gm/dL 32.2-34.1 L RED CELL DISTRIBUTION WIDTH (test code = RDW) 16.4 % 12.4-16.5 N PLATELET COUNT (test code = PLT) 502 K/mm3 133-385 H IMMATURE PLATELET FRACTION ( test code = IPF) 0.0 % 0.0-10.8 N MEAN PLATELET VOLUME (test c ode = MPV) 10.8 fl 9.1-12.7 N MANUAL DIFF REQUIRED (test c ode = MDIFF) YES RBC MORPHOLOGY REQUIRED (ibis t code = RBCM) NORMAL PLATELET MORPHOLOGY REQUIRED (test code = PLTMR) NORMAL WBC [id number] 18:05:00* Test Item Value Reference Range Interpretation Comme nts SEGMENTED NEUTROPHILS (test code = SEG) % 56.5-79 .4 LYMPHOCYTE (test code = LYMPH) % 20-40 CBC W/AUTO [id number] 18:05:00* Test Item Value Reference Range Interpretation Comme nts WHITE BLOOD CELL (test code = WBC) [...] pg 27-35 N MEAN CELL HGB CONCETRATION ( test code = MCHC) 31.1 gm/dL 32.2-34.1 L RED CELL DISTRIBUTION WIDTH (test code = RDW) 16.4 % 12.4-16.5 N PLATELET COUNT (test code = PLT) 502 K/mm3 133-385 H IMMATURE PLATELET FRACTION ( test code = IPF) 0.0 % 0.0-10.8 N MEAN PLATELET VOLUME (test c ode = MPV) 10.8 fl 9.1-12.7 N MANUAL DIFF REQUIRED (test c ode = MDIFF) YES RBC MORPHOLOGY REQUIRED (ibis t code = RBCM) NORMAL PLATELET MORPHOLOGY REQUIRED (test code = PLTMR) NORMAL WBC [id number] 18:05:00* Test Item Value Reference Range Interpretation Comme nts SEGMENTED NEUTROPHILS (test code = SEG) % 56.5-79 .4 LYMPHOCYTE (test code = LYMPH) % 20-40 PRODUCTS OF [id number] 13:51:00 RUN DATE: 04/17/19 [facility] PAGE 1 RUN TIME: 1654 Specimen Inquiry RUN USER: INTERFACE -------- ----PATIENT: TASH MUNOZ LOC: SHON U #: [id number] AGE/SX: 39/F ROOM: [facility] RE04/14/19REG DR: Genevieve Rodriguez MD : 76 BED: A DIS: 04/16/19 STATUS: DIS IN TLOC: SPEC #: [id number] RECD: 04/14/19 STATUS: ADRIAN REOrestes #: [id number] GISELA: 04/14/19- SUBM DR: Genevieve Rodriguez MD ENTERED: 04/14/19 SP TYPE: POC[ OTHR DR: ORDERED: LEVEL IV/3 CODES: [id number] - ENDOMETRIUM, NO PROCEDURES: LEVEL IV (Incomplete) TISSUES: ENDOMETRIUM, NOS - POC X 3 CLINICAL HISTORY 39 year old, bleeding (wpd) FINAL DIAGNOSIS Specimen #1 endometrial products: - blood Specimen #2 endometrial products: - degenerating placental tissue - thick-walled uterine vessels with thrombus and organization - inflamed decidual tissue Specimen #3 endometrial products and curettings: - placental implantation site - inflamed decidua - blood COMMENT: Features consistent with retained products of conception and implantation site. CPT code(s): 57159 x3 cds/kr dt: 04/17/19 GROSS DESCRIPTION ANATOMIC SOURCE OF TISSUE (per Requisition): 1. Endometrial products (1 of 3) 2. Endometrial products (2 of 3) 3. Endometrial products and curettings (3 of 3) Each specimen is labeled with the patient's name and medical recordnumber. CONTINUED ON NEXT PAGE RUN DATE: 04/17/19 [facility] PAGE 2 RUN TIME: 4 SpecimenInquiry RUN USER: INTERFACE SPEC #: [id number] PATIENT: TASH MUNOZ #[id number] (Continued)----- ------- GROSS DESCRIPTION (Continued) Specimen #1 is designated "endometrial products" and consists of multiple portions of dark red blood clots in a suction collection container aggregating to 8 x 6 x 6 cm. Special Events Assistant sections are submitted in A1 and A2. Specimen #2 is designated "endometrial products" and consists of multiple portions of red tissue and blood clots in a suction collection container aggregating to 6 x 5 x 5 cm. Special Events Assistant sections are submitted in B1 and B2. Specimen #3 is designated "endometrial products and curettings" and consists of multiple portions of red tissue in a suction collect ion container and on a piece of Telfa pad aggregating to 5 x 3 x 1.7 cm. Special Events Assistant sections are submitted in C1 and C2. hz/wpd 04/14/19 @ 3539 MICROSCOPIC DESCRIPTION Specimen #1 consists of blood alone. Specimen #2 consists of inflamed decidual tissue and large thick-walled vessels with thromb us in varying degrees of organization. Degenerating "ghost" villi are present with perivillous fibrin deposition. farrah/michelle dt: 04/17/19 Signed AdarshBrandonaristides Saul 04/17/19 1351 - END OF REPORT [id number] 09:12:00* Test Item Value Reference Range Interpretation Comme nts HEMOGLOBIN (test code = HGB) 8.9 g/dL 10.7-13.9 L Results verified by repeat analysis CBC W/AUTO [id number] 09:38:00* Test Item Value Reference Range Interpretation Comme nts WHITE BLOOD CELL (test code = WBC) 12.3 K/mm3 6.6-12.1 H RED BLOOD CELL (test code = RBC) 2.29 M/mm3 3.45-5.01 L HEMOGLOBIN (test code = HGB) 6.3 g/dL 10.7-13.9 LL RESULTS CALLED Ashley YANCEY C.RN.READ BACK & CONFIRMED? YES.BY PJ 04/15/19 0913.Results verified by repeat analysis HEMATOCRIT (test code = HCT) 21.0 % 32.1-42.1 L MEAN CELL VOLUME (test code = MCV) 92 fL 84.1-94.8 N MEAN CELL HGB (test code = MCH) 27.5 pg 27-35 N MEAN CELL HGB CONCETRATION (test code = MCHC) 30.0 gm/dL 32.2-34.1 L RED CELL DISTRIBUTION WIDTH (test code = RDW) 17.4 % 12.4-16.5 H PLATELET COUNT (test code = PLT) 396 K/mm3 133-385 H IMMATURE PLATELET FRACTION (test code = IPF) 0.0 % 0.0-10.8 N MEAN PLATELET VOLUME (test code = MPV) 11.0 fl 9.1-12.7 N NEUTROPHIL % (test code = NT%) 79.9 % 56.5-79.4 H LYMPHOCYTE % (test code = LY%) 13.0 % 14.3-34.3 L MONOCYTE % (test code = MO%) 5.9 % 5.1-10.4 N EOSINOPHIL % (test code = EO%) 0.4 % 0.1-3.0 N BASOPHIL % (test code = BA%) 0.2 % 0.1-1.0 N NEUTROPHIL # (test code = NT#) 9.8 K/mm3 LYMPHOCYTE # (test code = LY#) 1.6 K/mm3 MONOCYTE # (test code = MO#) 0.7 K/mm3 EOSINOPHIL # (test code = EO#) 0.05 K/mm3 BASOPHIL # (test code = BA#) 0.0 K/mm3 RBC MORPHOLOGY REQUIRED (test code = RBCM) NORMAL NORMAL PLATELET MORPHOLOGY REQUIRED (test code = PLTMR) NORMAL NORMAL HGB [id number] 13:25:00* Test Item Value Reference Range Interpretation Comme nts HEMOGLOBIN (test code = HGB) 7.5 g/dL 10.7-13.9 L HEMATOCRIT (test code = HCT) 26.8 % 32.1-42.1 L UR HCG [id number] 01:09:00* Test Item Value Reference Range Interpretation Comme nts UR HCG QUAL (test code = HCGQLU) POSITIVE - US PELVIS [id number] 21:36:00Patient Name: TASH MUNOZ Unit No: [id number] EXAMS: CPT CODE: [id number] US PELVIS COMPLETE 42153 TRANSABDOMINAL PELVIC ULTRASOUND INDICATION: Rule out retained POC. Hypertension, fever, vagina l bleed. TECHNIQUE: Transabdominal pelvic ultrasound was performed with corbin scale and Doppler images. COMPARISONS: CT abdomen pelvis 04/13/2019 FINDINGS: TRANSABDOMINAL PELVIC ULTRASOUND: The uterus measures 19.4 x 7.5 [...] the intramural to submucosal posterior fundus. at 2135 Reported and signed by: Jonnathan Palafox DO CC: Genevieve Rodriguez MD; Tremayne Silver MD Technologist: Diana Ann RDMS Probe: Trnscrbd D/ (2135) [email or web address] Orig Print D/T: S: 04/13/2019 (2138) [facility] NAME: TASH MUNOZ Radiology Department PHYS: Tremayne Persaud MD [address] : 1980 AGE: 39 SEX: F [place], [place] [address] LOC: ANETA PHONE #: [phone] EXAM DATE: 04/13/2019 STATUS: REG ER FAX #: [phone] RAD NO: Page 1 Signed Report Patient Name: TASH MUNOZ Unit No: [id number] EXAMS: CPT CODE: [id number] US PELVIS COMPLETE 67009 (Continued) [facility] NAME: TASH MUNOZ Radiology Department PHYS: Tremayne Persaud MD [address] : 1980 AGE: 39 SEX: F [place], [place] [address] LOC: ANETA PHONE #: [phone] EXAM DATE: 04/13/2019 STATUS: SAMIRA ER FAX #: [phone] RAD NO: Page 2 Signed Report- CT ABD PELVIS [id number] 20:09:00Patient Name: TASH MUNOZ Unit No: [id number] EXAMS: CPT CODE: [id number] CT ABD PELVIS [id number] CT ABDOMEN AND PELVIS WITH CONTRAST INDICATION: Abdominal pain, possible retained products of conception. TECHNIQUE: 125 mL Isovue-300 Intravenous contrast was administered followed by CT imaging of the abdomen and pelvis with axial, coronal and sagittal reconstructions. CT imaging performed at this location utilizes radiation dose optimization technique which includes one or more of the fol lowin) Automated exposure control; 2) Adjustment of the mA and/or kV according to patient's size; 3) Use of iterative reconstruction techniques. DLP (mGy-cm): 2063 COMPARISONS: None. FINDINGS: There is no acute osseous fracture or dislocation. There are surgical changes of section. There is no organized fluid collection or retained foreign body in the soft tissues. The aorta reveals no aneurysm or acute process. The inferior vena cava reveals no acute process. The lung bases revealno acute process. There is no acute hepatic process. The gallbladder and bile ducts reveal no acuteprocess. The pancreas reveals no acute process. The spleen reveals no acute process. The adrenal gla nds reveal no acute process or mass. There is a 5 mm benign cyst in the inferior pole right kidney that requires no follow-up. There is no acute renal process. The urinary bladder reveals no acute process. The uterus demonstrates a moderate amount of hemorrhagic fluid distending the endometrial canal. There are 4 uterine fibroids, the largest is in the left fundus, is intramural and measures 4.3 cm. [facility] NAME: TASH MUNOZ Radiology Department PHYS: Shae Giron MD [address] : 1980 AGE: 39 SEX: F [place], [place] [address] : ANETA PHONE #: [phone] EXAM DATE: 04/13/2019 STATUS: REG ER FAX #: [phone] RAD NO: Pa ge 1 Signed Report 1 Patient Name: TASH MUNOZ Unit No: [id number] EXAMS: CPT CODE: [id number] ABD PELVIS W/CONT 18180 (Continued) There is no intra- abdominal free fluid. There is no intra-abdominal free gas. There is no lymphadenopathy. There is no evidence of acute appendicitis. There is no bowel obstruction. There is no bowel mucosal thickening or inflammation. IMPRESSION: 1. The uterus demonstrates a moderate amount of hemorrhagic fluid distending the endometrial canal. Retained products of conception cannot be excluded. 2. There are 4 uterine fibroids, the largest is in the left fundus, is intramural and measures 4.3 cm. 3. No infectious process detected. Normal bowel. Electr onically Signed by Jonnathan Palafox DO on 04/13/2019 at 2008 Reported and signed by: Jonnathan Palafox DO CC: Shae Michaels MD; Genevieve Rodriguez MD Technologist: Axel Montemayor, RT, CT CTDI: 20.16 DLP: 2063.76 Trnscrbd D/ (2008) [email or web address] [facility] NAME: TAMMYTASH Radiology Department PHYS: Shae Giron MD [address] : 1980 AGE: 39 SEX: F [place], [place] [address] LOC: Sushant.ERS PHONE #: [phone] EXAM DATE: 04/13/2019 STATUS: REG ER FAX #: [phone] RAD NO: Page 2 Signed Report 1 Patient Name: TASH MUNOZ Unit No: [id number] EXAMS: CPT CODE: [id number] CT ABD PELVIS W/CONT 61782 (Continued) Orig Print D/T: S: 04/13/2019 (2011) [facility] NAME: TASH MUNOZ Radiology Department PHYS: Shae Giron MD [address] : 1980 AGE: 39 SEX: F [place], [place] [address] [facility] [id number] LOC: ANETA PHONE #: [phone] EXAM DATE: 04/13/2019 STATUS: SAMIRA TAPIA FAX #: [phone] RAD NO: Page 3 Signed Report 1PROTHROMBIN [id number] 17:40:00 * Test Item Value Reference Range Interpretation Comme nts PROTHROMBIN TIME PATIENT (te st code = PTP) 13.0 secs 10.4-12.4 H Specimen Comment: CLEAN CATCHIS PATIENT ON ANTICOAGULANTS ? NINTERNATIONAL NORMAL [id number] 17:40:00* Test Item Value Reference Range Interpretation Comme nts INTERNATIONAL NORMAL RATIO (test code = INR) 1.17 The INR is to be used only for monitoring oral anticoagulanttherapy. INDICATION INR VALUE 1. Prophylaxis including high risk surgery 2.0 - 2.52. Deep venous thrombosis. Pulmonary embolism. Atrial fibrillation or bioprosthetic heart valves 2.0 - 3.03. Mechanical heart valves or recurrent systemic embolism. 3.0 - 3.5 Specimen Comment: CLEAN CATCHIS PATIENT ON ANTICOAGULANTS ? NTHROMBOPLASTIN TIME [id number] 17:40:00* Test Item Value Reference Range Interpretation Comme nts THROMBOPLASTIN TIME PARTIAL (test code = PTT) 30.0 secs 22-38 N Specimen Comment: CLEAN CATCHIS PATIENT ON ANTICOAGULANTS ? NCOMPREHENSIVE METABOLIC [id number] 17:24:00* Test Item Value Reference Range Interpretation Comme nts SODIUM (test code = NA) 139 mEq/L 135-145 N POTASSIUM (test code = K) 3.8 mEq/L 3.5-5.0 N CHLORIDE (test code = CL) 105 mEq/L 100-115 N CARBON DIOXIDE (test code = CO2) 24 mEq/L 22-31 N ANION GAP (test code = GAP) 13.70 10-20 N GLUCOSE (test code = GLU) 84 mg/dL 65-110 N BLOOD UREA NITROGEN (test co de = BUN) 7 mg/dL 7-18 N GLOMERULAR FILTRATION RATE ( test code = GFR) 92 ml/min >60 N CREATININE (test code = CREAT) 0.7 mg/dL 0.5-1.0 N TOTAL PROTEIN (test code = PROT) 6.1 gm/dL 6.3-8.2 L ALBUMIN (test code = ALB) 2.9 gm/dL 3.4-4.8 L CALCIUM (test code = CA) 8.2 mg/dL 8.4-10.2 L BILIRUBIN TOTAL (test code = BILT) 0.5 mg/dL 0.2-1.0 N SGOT/AST (test code = AST) 19 units/L 15-37 N SGPT/ALT (test code = ALT) 27 units/L 12-78 N ALKALINE PHOSPHATASE TOTAL ( test code = ALKP) 142 units/L 46-116 H Specimen Comment: CLEAN CATCHLIVER [id number] 17:24:00* Test Item Value Reference Range Interpretation Comme nts BILIRUBIN DIRECT (test code = BILD) 0.1 mg/dL <0.2 N Specimen Comment: CLEAN [id number] 17:24:00* Test Item Value Reference Range Interpretation Comme nts TROPONIN-I (test code = TROPI) <0.017 ng/mL <0.056 N Specimen Comment: CLEAN CATCHUA RFLX MICR CULT IF [id number] 17:15:00* Test Item Value Reference Range Interpretation Comme nts UA COLOR (test code = COLU) RED YELLOW UA APPEARANCE (test code = APPU) CLOUDY CLEAR A UA GLUCOSE DIPSTICK (test code = DGLUU) TRACE NEGATIVE A UA BILIRUBIN DIPSTICK (test code = BILU) 2+ NEGATIVE UA KETONE DIPSTICK (test code = KETU) TRACE NEGATIVE UA SPECIFIC GRAVITY (test code = SGU) 1.015 1.001-1.035 N UA BLOOD DIPSTICK (test code = EDMUNDO) 3+ NEGATIVE A UA PH DIPSTICK (test code = DIMAS) 7.5 5-9 UA PROTEIN DIPSTICK (test code = PROU) 2+ NEGATIVE UA UROBILINIOGEN DIPSTICK (test code = URO) 2.0 EU/dL <=1.0 A UA NITRITE DIPSTICK (test code = MEMO) POSITIVE NEGATIVE A UA LEUKOCYTE ESTERASE DIPSTICK (test code = LEUU) 3+ NEGATIVE A UA WBC (test code = WBCU) 15-20 #/hpf NONE SEEN A UA RBC (test code = RBCU) TOO NUMEROUS T O CNT #/hpf NONE SEEN A UA EPITHELIAL CELLS (test code = EPIU) FEW #/HPF RARE-FEW UA BACTERIA (test code = BACU) MANY #/hpf NONE SEEN A Specimen Comment: CLEAN CATCHIndication for culture: Suprapubic PainUA RFLX MICR CULT IF [id number] 17:13:00* Test Item Value Reference Range Interpretation Comme nts UA COLOR (test code = COLU) RED YELLOW UA APPEARANCE (test code = APPU) CLOUDY CLEAR A UA GLUCOSE DIPSTICK (test co de = DGLUU) TRACE NEGATIVE A UA BILIRUBIN DIPSTICK (test code = BILU) 2+ NEGATIVE UA KETONE DIPSTICK (test cod e = KETU) TRACE NEGATIVE UA SPECIFIC GRAVITY (test co de = SGU) 1.015 1.001-1.035 N UA BLOOD DIPSTICK (test code = EDMUNDO) 3+ NEGATIVE A UA PH DIPSTICK (test code = DIMAS) 7.5 5-9 UA PROTEIN DIPSTICK (test co de = PROU) 2+ NEGATIVE UA UROBILINIOGEN DIPSTICK (t est code = URO) 2.0 EU/dL <=1.0 A UA NITRITE DIPSTICK (test co de = MEMO) POSITIVE NEGATIVE A UA LEUKOCYTE ESTERASE DIPSTI CK (test code = LEUU) 3+ NEGATIVE A UA WBC (test code = WBCU) #/hpf NONE SEEN UA EPITHELIAL CELLS (test co de = EPIU) #/HPF RARE-FEW Specimen Comment: CLEAN CATCHIndication for culture: Suprapubic PainCBC W/AUTO [id number] 17:12:00* Test Item Value Reference Range Interpretation Comme nts WHITE BLOOD CELL (test code = WBC) [...] pg 27-35 N MEAN CELL HGB CONCETRATION ( test code = MCHC) 30.2 gm/dL 32.2-34.1 L RED CELL DISTRIBUTION WIDTH (test code = RDW) 17.1 % 12.4-16.5 H PLATELET COUNT (test code = PLT) 428 K/mm3 133-385 H IMMATURE PLATELET FRACTION ( test code = IPF) 0.0 % 0.0-10.8 N MEAN PLATELET VOLUME (test c ode = MPV) 10.7 fl 9.1-12.7 N NEUTROPHIL % (test code = NT%) 84.0 [...] = BA#) 0.0 K/mm3 RBC MORPHOLOGY REQUIRED (ibis t code = RBCM) NORMAL NORMAL PLATELET MORPHOLOGY REQUIRED (test code = PLTMR) NORMAL NORMAL Specimen Comment: CLEAN CATCH- XR CHEST 1 [id number] 17:05:00Patient Name: TASH MUNOZ Unit No: [id number] EXAMS: CPT CODE: [id number] XR CHEST 1 V 75552 CHEST 1 VIEW: 04/13/2019 COMPARISON: NONE CLINICAL HISTORY: CODE SEPSIS FINDINGS: Cardiopericardial silhouette is borderline in size. No infiltrates or pulmonary edema is present. There is no pneumothorax. IMPRESSION: No acute pulmonary disease. at 1705 Reported and signed by: Tk Black MD CC: Shae Michaels MD; Genevieve Rodriguez MD Technologist: Axel Montemayor, RT, CT Trnscrbd D/ (9117) [email or web address] Orig Print D/T: S: 04/13/2019 (7502) [facility] NAME: TASH MUNOZ Radiology Department PHYS: Shae Giron MD [address] M : 1980 AGE: 39 SEX: F [place], [place] [address] LOC: ANETA PHONE #: [phone] EXAM DATE: 04/13/2019 STATUS: REG ER FAX #: [phone] RAD NO: Page 1 Signed Report LACTIC ACID [id number] 16:51:00* Test Item Value Reference Range Interpretation Comme nts LACTIC ACID POC (test code = LACTP) 0.72 MMOL/L 0.90-1.70 L [id number] 10:29:00* Test Item Value Reference Range Interpretation Comme nts GLUBED (test code = GLUBED) 70 mg/dL 65-110 N HGB [id number] 07:16:00* Test Item Value Reference Range Interpretation Comme nts HEMOGLOBIN (test code = HGB) 8.0 g/dL 10.7-13.9 L HEMATOCRIT (test code = HCT) 25.8 % 32.1-42.1 L CBC W/AUTO [id number] 02:46:00* Test Item Value Reference Range Interpretation Comme nts WHITE BLOOD CELL (test code = WBC) 9.6 K/mm3 6.6-12.1 N RED BLOOD CELL (test code = RBC) 2.38 M/mm3 3.45-5.01 L HEMOGLOBIN (test code = HGB) 6.8 g/dL 10.7-13.9 LL RESULTS CALLED Ashley LopezREAD BACK & CONFIRMED? Y.BY F.LAB.LGL0 04/05/19 0244.RESULTS VERIFIED BY REPEAT ANALYSIS HEMATOCRIT (test code = HCT) 21.9 % 32.1-42.1 L MEAN CELL VOLUME (test code = MCV) 92 fL 84.1-94.8 N MEAN CELL HGB (test code = MCH) 28.6 pg 27-35 N MEAN CELL HGB CONCETRATION (test code = MCHC) 31.1 gm/dL 32.2-34.1 L RED CELL DISTRIBUTION WIDTH (test code = RDW) 17.4 % 12.4-16.5 H PLATELET COUNT (test code = PLT) 151 K/mm3 133-385 N IMMATURE PLATELET FRACTION (test code = IPF) 0.0 % 0.0-10.8 N MEAN PLATELET VOLUME (test code = MPV) 12.5 fl 9.1-12.7 N NEUTROPHIL % (test code = NT%) 71.2 % 56.5-79.4 N LYMPHOCYTE % (test code = LY%) 18.5 % 14.3-34.3 N MONOCYTE % (test code = MO%) 8.2 % 5.1-10.4 N EOSINOPHIL % (test code = EO%) 1.0 % 0.1-3.0 N BASOPHIL % (test code = BA%) 0.3 % 0.1-1.0 N NEUTROPHIL # (test code = NT#) 6.8 K/mm3 LYMPHOCYTE # (test code = LY#) 1.8 K/mm3 MONOCYTE # (test code = MO#) 0.8 K/mm3 EOSINOPHIL # (test code = EO#) 0.10 K/mm3 BASOPHIL # (test code = BA#) 0.0 K/mm3 RBC MORPHOLOGY REQUIRED (test code = RBCM) NORMAL NORMAL PLATELET MORPHOLOGY REQUIRED (test code = PLTMR) NORMAL NORMAL HGB [id number] 08:00:00* Test Item Value Reference Range Interpretation Comme nts HEMOGLOBIN (test code = HGB) 6.6 g/dL 10.7-13.9 LL RESULTS CALLED Ashley ESTRADA.READ BACK & CONFIRMED? [facility] 08.RESULTS VERIFIED BY REPEAT ANALYSIS HEMATOCRIT (test code = HCT) 21.1 % 32.1-42.1 L HGB [id number] 22:22:00* Test Item Value Reference Range Interpretation Comme nts HEMOGLOBIN (test code = HGB) 7.2 g/dL 10.7-13.9 L HEMATOCRIT (test code = HCT) 22.3 % 32.1-42.1 L CBC W/AUTO [id number] 12:30:00* Test Item Value Reference Range Interpretation Comme nts WHITE BLOOD CELL (test code = WBC) 14.9 K/mm3 6.6-12.1 H RED BLOOD CELL (test code = RBC) 2.16 M/mm3 3.45-5.01 L HEMOGLOBIN (test code = HGB) 6.0 g/dL 10.7-13.9 LL RESULTS VERIFIED BY REPEAT ANALYSISRESULTS CALLED TO CHIKA Herrera READ BACK & CONFIRMED? .YBY F.LAB.[facility] 04/03/19 1225. HEMATOCRIT (test code = HCT) 19.1 % 32.1-42.1 LL RESULTS CALLED T Jordon BazziREAD BACK & CONFIRMED? Y.BY F.LAB.[facility] 04/03/19 1230.RESULTS VERIFIED BY REPEAT ANALYSIS MEAN CELL VOLUME (test code = MCV) 88 fL 84.1-94.8 N MEAN CELL HGB (test code = MCH) 27.8 pg 27-35 N MEAN CELL HGB CONCETRATION (test code = MCHC) 31.4 gm/dL 32.2-34.1 L RED CELL DISTRIBUTION WIDTH (test code = RDW) 19.0 % 12.4-16.5 H PLATELET COUNT (test code = PLT) 180 K/mm3 133-385 N IMMATURE PLATELET FRACTION (test code = IPF) 0.0 % 0.0-10.8 N MEAN PLATELET VOLUME (test code = MPV) 12.3 fl 9.1-12.7 N NEUTROPHIL % (test code = NT%) 79.4 % 56.5-79.4 N LYMPHOCYTE % (test code = LY%) 12.1 % 14.3-34.3 L MONOCYTE % (test code = MO%) 7.9 % 5.1-10.4 N EOSINOPHIL % (test code = EO%) 0.1 % 0.1-3.0 N BASOPHIL % (test code = BA%) 0.2 % 0.1-1.0 N NEUTROPHIL # (test code = NT#) 11.8 K/mm3 LYMPHOCYTE # (test code = LY#) 1.8 K/mm3 MONOCYTE # (test code = MO#) 1.2 K/mm3 EOSINOPHIL # (test code = EO#) 0.01 K/mm3 BASOPHIL # (test code = BA#) 0.0 K/mm3 RBC MORPHOLOGY REQUIRED (test code = RBCM) NORMAL NORMAL PLATELET MORPHOLOGY REQUIRED (test code = PLTMR) NORMAL NORMAL [id number] 19:23:00* Test Item Value Reference Range Interpretation Comme nts GLUBED (test code = GLUBED) 85 mg/dL 65-110 N [id number] 14:10:00* Test Item Value Reference Range Interpretation Comme nts GLUBED (test code = GLUBED) 87 mg/dL 65-110 N [id number] 10:43:00* Test Item Value Reference Range Interpretation Comme nts GLUBED (test code = GLUBED) 100 mg/dL 65-110 N [id number] 06:55:00* Test Item Value Reference Range Interpretation Comme nts GLUBED (test code = GLUBED) 78 mg/dL 65-110 N COMPREHENSIVE METABOLIC [id number] 06:28:00* Test Item Value Reference Range Interpretation Comme nts SODIUM (test code = NA) 140 mEq/L 135-145 N POTASSIUM (test code = K) 4.0 mEq/L 3.5-5.0 N CHLORIDE (test code = CL) 107 mEq/L 100-115 N CARBON DIOXIDE (test code = CO2) 21 mEq/L 22-31 L ANION GAP (test code = GAP) 16.10 10-20 N GLUCOSE (test code = GLU) 78 mg/dL 65-110 N BLOOD UREA NITROGEN (test co de = BUN) 7 mg/dL 7-18 N GLOMERULAR FILTRATION RATE ( test code = GFR) 110 ml/min >60 N CREATININE (test code = CREAT) 0.6 mg/dL 0.5-1.0 N TOTAL PROTEIN (test code = PROT) 5.5 gm/dL 6.3-8.2 L ALBUMIN (test code = ALB) 2.3 gm/dL 3.4-4.8 L CALCIUM (test code = CA) 9.0 mg/dL 8.4-10.2 N BILIRUBIN TOTAL (test code = BILT) 0.3 mg/dL 0.2-1.0 N SGOT/AST (test code = AST) 15 units/L 15-37 N SGPT/ALT (test code = ALT) 12 units/L 12-78 N ALKALINE PHOSPHATASE TOTAL ( test code = ALKP) 182 units/L 46-116 H CBC W/AUTO [id number] 06:02:00* Test Item Value Reference Range Interpretation Comme nts WHITE BLOOD CELL (test code = WBC) [...] pg 27-35 N MEAN CELL HGB CONCETRATION ( test code = MCHC) 31.8 gm/dL 32.2-34.1 L RED CELL DISTRIBUTION WIDTH (test code = RDW) 18.5 % 12.4-16.5 H PLATELET COUNT (test code = PLT) 180 K/mm3 133-385 N IMMATURE PLATELET FRACTION ( test code = IPF) 0.0 % 0.0-10.8 N MEAN PLATELET VOLUME (test c ode = MPV) 13.3 fl 9.1-12.7 H NEUTROPHIL % (test code = NT%) 64.8 [...] = BA#) 0.0 K/mm3 RBC MORPHOLOGY REQUIRED (ibis t code = RBCM) NORMAL NORMAL PLATELET MORPHOLOGY REQUIRED (test code = PLTMR) NORMAL NORMAL [id number] 03:30:00* Test Item Value Reference Range Interpretation Comme nts GLUBED (test code = GLUBED) 71 mg/dL 65-110 N [id number] 22:11:00* Test Item Value Reference Range Interpretation Comme nts GLUBED (test code = GLUBED) 125 mg/dL 65-110 H AG HEPATITIS B [id number] 20:02:00* Test Item Value Reference Range Interpretation Comme nts AG HEPATITIS B SURFACE (test code = HBSAG) NONREACTIVE NONREACTIVE IS CONSENT FORM SIGNED FOR HIV TESTING? YAB HEPATITIS C [id number] 20:02:00* Test Item Value Reference Range Interpretation Comme nts AB HEPATITIS C (test code = HCVAB) NONREACTIVE NONREACTIVE SIGNAL TO CUTOFF (test code = CUTOFF) 0.11 <0.80 N IS CONSENT FORM SIGNED FOR HIV TESTING? YAB [id number] 20:02:00* Test Item Value Reference Range Interpretation Comme nts AB TREPONEMA (test code = TREPAB) NONREACTIVE NONREACTIVE IS CONSENT FORM SIGNED FOR HIV TESTING? YAB HIV 1 20:02:00* Test Item Value Reference Range Interpretation Comme nts AB HIV 1 2 (test code = [id number]) NONREACTIVE NONREACTIVE Done by [employer] Gen HIV Ag/Ab Combo Screen IS CONSENT FORM SIGNED FOR HIV TESTING? YAG HEPATITIS B [id number] 19:20:00* Test Item Value Reference Range Interpretation Comme nts AG HEPATITIS B SURFACE (test code = HBSAG) NONREACTIVE NONREACTIVE IS CONSENT FORM SIGNED FOR HIV TESTING? CAITLINB HEPATITIS C [id number] 19:20:00* Test Item Value Reference Range Interpretation Comme nts AB HEPATITIS C (test code = HCVAB) NONREACTIVE SIGNAL TO CUTOFF (test code = CUTOFF) <0.80 IS CONSENT FORM SIGNED FOR HIV TESTING? YAB [id number] 19:20:00* Test Item Value Reference Range Interpretation Comme nts AB TREPONEMA (test code = TREPAB) NONREACTIVE NONREACTIVE IS CONSENT FORM SIGNED FOR HIV TESTING? YAB HIV 1 19:20:00* Test Item Value Reference Range Interpretation Comme nts AB HIV 1 2 (test code = [id number]) NONREACTIVE IS CONSENT FORM SIGNED FOR HIV TESTING? YLIVER [id number] 19:01:00* Test Item Value Reference Range Interpretation Comme nts TOTAL PROTEIN (test code = PROT) 5.4 gm/dL 6.3-8.2 L ALBUMIN (test code = ALB) 2.2 gm/dL 3.4-4.8 L BILIRUBIN TOTAL (test code = BILT) 0.3 mg/dL 0.2-1.0 N BILIRUBIN DIRECT (test code = BILD) <0.1 mg/dL <0.2 N SGOT/AST (test code = AST) 16 units/L 15-37 N SGPT/ALT (test code = ALT) 13 units/L 12-78 N ALKALINE PHOSPHATASE TOTAL ( test code = ALKP) 174 units/L 46-116 H [id number] 19:01:00* Test Item Value Reference Range Interpretation Comme nts GLUCOSE (test code = GLU) 143 mg/dL 65-110 H URIC [id number] 19:01:00* Test Item Value Reference Range Interpretation Comme nts URIC ACID (test code = URIC) 4.3 mg/dL 2.6-6.0 N CBC W/AUTO [id number] 18:28:00* Test Item Value Reference Range Interpretation Comme nts WHITE BLOOD CELL (test code = WBC) [...] pg 27-35 N MEAN CELL HGB CONCETRATION ( test code = MCHC) 31.8 gm/dL 32.2-34.1 L RED CELL DISTRIBUTION WIDTH (test code = RDW) 18.3 % 12.4-16.5 H PLATELET COUNT (test code = PLT) 198 K/mm3 133-385 N IMMATURE PLATELET FRACTION ( test code = IPF) 0.0 % 0.0-10.8 N MEAN PLATELET VOLUME (test c ode = MPV) 13.3 fl 9.1-12.7 H NEUTROPHIL % (test code = NT%) 71.1 [...] = BA#) 0.0 K/mm3 RBC MORPHOLOGY REQUIRED (ibis t code = RBCM) NORMAL NORMAL PLATELET MORPHOLOGY REQUIRED (test code = PLTMR) NORMAL NORMAL UR PROTEIN/CREATININE [id number] 01:57:00* Test Item Value Reference Range Interpretation Comme nts UR PROTEIN RANDOM (test code = PROTU) 9.5 mg/dL UR CREATININE RANDOM (test code = CREATU) 30.6 mg/dL PROTEIN/CREATININE RATIO (te st code = P/CRATIO) 310.0 mg/gcrea <200 H COMPREHENSIVE METABOLIC [id number] 01:57:00* Test Item Value Reference Range Interpretation Comme nts SODIUM (test code = NA) 142 mEq/L 135-145 N POTASSIUM (test code = K) 4.3 mEq/L 3.5-5.0 N CHLORIDE (test code = CL) 106 mEq/L 100-115 N CARBON DIOXIDE (test code = CO2) 22 mEq/L 22-31 N ANION GAP (test code = GAP) 18.60 10-20 N GLUCOSE (test code = GLU) 81 mg/dL 65-110 N BLOOD UREA NITROGEN (test co de = BUN) 4 mg/dL 7-18 L GLOMERULAR FILTRATION RATE ( test code = GFR) 110 ml/min >60 N CREATININE (test code = CREAT) 0.6 mg/dL 0.5-1.0 N TOTAL PROTEIN (test code = PROT) 5.6 gm/dL 6.3-8.2 L ALBUMIN (test code = ALB) 2.3 gm/dL 3.4-4.8 L CALCIUM (test code = CA) 8.7 mg/dL 8.4-10.2 N BILIRUBIN TOTAL (test code = BILT) 0.2 mg/dL 0.2-1.0 N SGOT/AST (test code = AST) 17 units/L 15-37 N SGPT/ALT (test code = ALT) 14 units/L 12-78 N ALKALINE PHOSPHATASE TOTAL ( test code = ALKP) 189 units/L 46-116 H URINALYSIS [id number] 01:25:00* Test Item Value Reference Range Interpretation Comme nts UA COLOR (test code = COLU) STRAW YELLOW UA APPEARANCE (test code = APPU) CLEAR CLEAR UA GLUCOSE DIPSTICK (test co de = DGLUU) NEGATIVE NEG UA BILIRUBIN DIPSTICK (test code = BILU) NEGATIVE NEG UA KETONE DIPSTICK (test cod e = KETU) NEGATIVE NEG UA SPECIFIC GRAVITY (test co de = SGU) 1.005 1.001-1.035 N UA BLOOD DIPSTICK (test code = EDMUNDO) NEG NEG UA PH DIPSTICK (test code = DIMAS) 6.0 5-9 UA PROTEIN DIPSTICK (test co de = PROU) NEGATIVE NEG UA UROBILINIOGEN DIPSTICK (test code = URO) NEGATIVE mg/dL NEG UA NITRITE DIPSTICK (test co de = MEMO) NEG NEG UA LEUKOCYTE ESTERASE DIPSTI CK (test code = LEUU) 3+ NEG A UA WBC (test code = WBCU) 3-5 #/hpf NONE SEEN A UA RBC (test code = RBCU) 0-2 #/hpf NONE SEEN UA EPITHELIAL CELLS (test co de = EPIU) RARE #/HPF RARE-FEW UA BACTERIA (test code = BACU) MODERATE /HPF RARE-FEW A URINE SAMPLE: CLEAN CATCHCBC W/AUTO [id number] 01:13:00* Test Item Value Reference Range Interpretation Comme nts WHITE BLOOD CELL (test code = WBC) [...] pg 27-35 N MEAN CELL HGB CONCETRATION ( test code = MCHC) 32.2 gm/dL 32.2-34.1 N RED CELL DISTRIBUTION WIDTH (test code = RDW) 15.9 % 12.4-16.5 N PLATELET COUNT (test code = PLT) 213 K/mm3 133-385 N IMMATURE PLATELET FRACTION ( test code = IPF) 0.0 % 0.0-10.8 N MEAN PLATELET VOLUME (test c ode = MPV) 13.0 fl 9.1-12.7 H NEUTROPHIL % (test code = NT%) 64.4 [...] = BA#) 0.0 K/mm3 RBC MORPHOLOGY REQUIRED (ibis t code = RBCM) NORMAL NORMAL PLATELET MORPHOLOGY REQUIRED (test code = PLTMR) NORMAL NORMAL - DUP VEIN UNI [id number] 15:17:00Patient Name: TASH MUNOZ Unit No: [id number] EXAMS: CPT CODE: [id number] [place] [id number] RIGHT LOWER EXTREMITY DUPLEX VENOUS DOPPLER ULTRASOUND, 03/06/2019 COMPARISON: None CLINICAL HISTORY: RT LEG PAIN FINDINGS: Sonographic evaluation of the right leg was performed. There is normal Doppler flow and venous compressibility throughout. No definite sonographic evidence of deep venous thrombosis is seen. CONCLUSION: No definite sonographic evidence of deep venous thrombosis in the right leg. at 1517 Reported and signed by: Tk Black MD CC: Genevieve Rodriguez MD Technologist: Diandra Sanchez RDMS Probe: Trnscrbd D/ (9817) [email or web address] Orig Print D/T: S: 03/06/2019 (6470) [facility] NAME: MUNOZ,TASH Pascual Radiology Department PHYS: Genevieve Pozo MD [address] M : 1980 AGE: 39 SEX: F [place] [id number] LOC: Jeanie[facility] PHONE #: [phone] EXAMDATE: 03/06/2019 STATUS: REG CLI FAX #: [phone] RAD NO: Page 1 Signed Report Patient Name: TASH MUNOZ Unit No: [id number] EXAMS: CPT CODE: [id number] [place] [id number] (Continued) [facility] NAME: TASH MUNOZ Radiology Department PHYS: Genevieve Pozo MD [address] M : 1980 AGE: 39 SEX: F [place], [place] [address] LOC: [facility] PHONE #: [phone] EXAM DATE: 03/06/2019 STATUS: REG CLI FAX #: [phone] RAD NO: Page2 Signed Report
[2024-07-14 19:32] LABS: Absolute Basophils 0.1 K/uL (0-0.5); Absolute Eosinophils 0.1 K/uL (0-0.5); Absolute Lymphocytes (CBC) 1.6 K/uL (0.7-4.9); Absolute Monocytes 0.4 K/uL (0.1-1.3); Absolute Neutrophil 4.1 K/uL (1.8-8.0); Basophils % 1.1 % (0-1.3); Eosinophils % 1.1 % (0-4.4); Hematocrit 40.3 % (36.0-45.0); Hemoglobin 13.5 g/dL (12.0-15.0); Lymphocytes % 25.2 % (15.3-44.8); MCH 30.7 pg (27.0-35.0); MCHC 33.5 g/dL (32.0-36.0); MCV 91.4 fL (80-100); MPV 8.8 fL (7.6-11.3); Monocytes % 6.5 % (3.3-12.3); Neutrophils % 66.1 % (41.7-73.7); Nucleated Red Blood Cells % 0.1 % (0-0); Platelets 343 thou/uL (152-406); RBC Red Blood Cell Count 4.41 M/uL (3.86-4.86); Red Cell Distribution Width 13.6 % (12.1-15.2)
[2024-07-14 19:35] LABS: PT Prothrombin Time 10.6 SECONDS (9.4-12.5); PTT, Activated Partial Thromb 28.8 SECONDS (24.3-36.9); Protime INR 0.94
[2024-07-14 19:37] LABS: Specific Gravity < 1.005 (1.005-1.030); Sqamous Epithelial None Seen /HPF (None Seen); Urine Bacteria <20 /HPF (<20); Urine Bilirubin NEGATIVE (Negative); Urine Blood Negative (Negative); Urine Clarity Turbid (Clear); Urine Color Dark-Yellow (Yellow); Urine Crystals Unidentified Few /HPF (None Seen); Urine Culture Reflex Order NOT NEEDED; Urine Glucose NEGATIVE (Negative); Urine Ketones NEGATIVE (Negative); Urine Microscopic Reflex YN ORDER UMIC; Urine Nitrite NEGATIVE (Negative); Urine Protein NEGATIVE (Negative); Urine RBC <5 /HPF (None Seen); Urine Urobilinogen Normal (Normal); Urine WBC <5 /HPF (<5); Urine Yeast (Budding) Trace /HPF (None Seen); Urine pH 6.5 (5.0-7.0)
[2024-07-14 20:18] LABS: Albumin 3.5 g/dL (3.4-5.0); Albumin/Globulin Ratio 0.9 (1.1-1.8); Anion Gap 9.1 mEq/L (5.0-15.0); Bilirubin Total 0.4 mg/dL (0.2-1.0); Globulin 3.9 g/dL (2.3-3.5); Potassium 4.1 mEq/L (3.5-5.1); Protein, Total 7.4 g/dL (6.4-8.2)
--- NOTE | 2024-07-14 21:13 | ER ---
Nurse's Notes [facility] Name: Tash Duenas Age: 44 yrs Sex: Female : 1980 Arrival Date: 07/14/2024 Time: 18:14 Bed 13 Private MD: Diagnosis: Lower abdominal pain, unspecified Presentation: 07/14 18:37 Chief complaint: Patient states: x1 week lower back pain, difficulty holding urine. tm6 Went to urgent care yesterday, they said I have a UTI, gave an antibiotic. Today I feel more pain/spasms/pressure in lower abdomen. Feeling nauseous. Coronavirus screen: Client denies travel out of the [place] in the last 14 days. Ebola Screen: Patient negative for fever greater than or equal to 101.5 degrees Fahrenheit, and additional compatible Ebola Virus Disease symptoms Patient denies exposure to infectious person. Patient denies travel to an Ebola-affected area in the 21 days before illness onset. No symptoms or risks identified at this time. Initial Sepsis Screen: Does the patient meet any 2 criteria? HR > 90 bpm. Does the patient have a suspected source of infection? No. Patient's initial sepsis screen is negative. Risk Assessment: Do you want to hurt yourself or someone else?. Risk Assessment: Do you want to hurt yourself or someone else? Patient reports no desire to harm self or others. Onset of symptoms was July 07, 2024. 18:37 Method Of Arrival: Ambulatory tm6 18:37 Acuity: ZEN 3 tm6 Triage Assessment: 18:37 General: Appears uncomfortable, Behavior is cooperative. Pain: Complains of pain in low tm6 back area, left low back and pelvis Pain currently is 8 out of 10 on a pain scale. Pain began x1 week ago, worsening today. EENT: No signs and/or symptoms were reported regarding the EENT system. Neuro: Level of Consciousness is awake, alert, obeys commands, Oriented to person, place, time, situation. Cardiovascular: Patient's skin is warm and dry. Respiratory: Airway is patent Respiratory effort is even, unlabored, Respiratory pattern is regular, symmetrical. GI: Abdomen is flat, non-distended, Reports lower abdominal pain, nausea. : Reports cramping, incontinence, pain lower abdomen. Derm: No signs and/or symptoms reported regarding the dermatologic system. Musculoskeletal: No signs and/or symptoms reported regarding the musculoskeletal system. 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 - Infectious Disease History:: Denies. - Social history:: Smoking status: Patient denies any tobacco usage or history of. Screenin:50 [facility] ED Fall Risk Assessment (Adult) History of falling in the last 3 months, me1 including since admission No falls in past 3 months (0 pts) Confusion or Disorientation No (0 pts) Intoxicated or Sedated No (0 pts) Impaired Gait No (0 pts) Mobility Assist Device Used No (0 pt) Altered Elimination No (0 pt) Score/Fall Risk Level 0 - 2 = Low Risk Maintained a safe environment, Provided non-skid footwear, Hourly rounding (assess needs \T\ fall precautionary measures) done. Abuse screen: Denies threats or abuse. Nutritional screening: No deficits noted. Tuberculosis screening: No symptoms or risk factors identified. Assessment: 18:50 General: Appears comfortable, well groomed, well developed, well nourished, Behavior is me1 calm, cooperative, appropriate for age, Reports x1 week lower back pain, difficulty holding urine. Went to urgent care yesterday, they said I have a UTI, gave an antibiotic. Today I feel more pain/spasms/pressure in lower abdomen. Feeling nauseous. Pain: Complains of pain in left lower quadrant and pelvis Pain radiates to back and left low back and low back area Pain currently is 6 out of 10 on a pain scale. Quality of pain is described as crampy, pressure, Pain began gradually, Is continuous. Neuro: Level of Consciousness is awake, alert, obeys commands, Oriented to person, place, time, situation, Appropriate for age. Cardiovascular: Patient's skin is warm and dry. Respiratory: Airway is patent Respiratory effort is even, unlabored, Respiratory pattern is regular, symmetrical. GI: Reports nausea. : No signs and/or symptoms were reported regarding the genitourinary system. : Reports burning with urination, incontinence, pain in suprapubic area in lower back. EENT: No signs and/or symptoms were reported regarding the EENT system. Derm: Skin is intact, is healthy with good turgor, Skin is pink, warm \T\ dry. Musculoskeletal: No signs and/or symptoms reported regarding the musculoskeletal system. 19:55 Reassessment: No changes from previously documented assessment. Patient and/or family rg5 updated on plan of care and expected duration. Pain level reassessed. Patient is alert, oriented x 3, equal unlabored respirations, skin warm/dry/pink. 20:35 Reassessment: No changes from previously documented assessment. Patient and/or family rg5 updated on plan of care and expected duration. Pain level reassessed. Patient is alert, oriented x 3, equal unlabored respirations, skin warm/dry/pink. 21:15 Reassessment: Patient and/or family updated on plan of care and expected duration. Pain rg5 level reassessed. Patient is alert, oriented x 3, equal unlabored respirations, skin warm/dry/pink. Patient states feeling better. Vital Signs: 18:35 BP 147 / 93; Pulse 100; Resp 17; Temp 97.8(TE); Pulse Ox 98% on R/A; MAP 106 mmHg; tm6 Weight 65.77 kg; Height 5 ft. 8 in. ; Pain 8/10; 19:54 BP 114 / 87; Pulse 80; Resp 17; Temp 99(O); Pulse Ox 97% on R/A; Pain 7/10; rg5 21:14 BP 109 / 73; Pulse 77; Resp 17; Temp 98; Pulse Ox 99% on R/A; Pain 3/10; rg5 18:35 Body Mass Index 22.05 (65.77 kg, 172.72 cm) tm6 18:35 Pain Scale: Adult tm6 19:54 Pain Scale: Adult rg5 21:14 Pain Scale: Adult rg5 ED Course: 18:19 Patient arrived in ED. ra3 18:20 Manju Quintana PA-C is PHCP. sb4 18:20 Olman Silver MD is Attending Physician. sb4 18:37 Arm band placed on right wrist. tm6 18:40 Triage completed. tm6 18:47 Lucero aPige, RN is Primary Nurse. me1 18:50 Patient has correct armband on for positive identification. Bed in low position. Call me1 light in reach. Side rails up X2. Provided Education on: POC. Verbalized understanding.. Client placed on continuous cardiac and pulse oximetry monitoring. NIBP monitoring applied. clinical research monitor on. Pulse ox on. NIBP on. 18:50 No provider procedures requiring assistance completed. me1 19:11 Initial lab(s) drawn, by me, sent to lab. First set of blood cultures drawn by me, me1 Urine collected: clean catch specimen, clear, sudheer colored. 19:17 Inserted saline lock: 22 gauge in left antecubital area, using aseptic technique. me1 19:18 Blood Culture Adult (2) Sent. me1 19:18 CBC with Diff Sent. me1 19:18 CMP Sent. me1 19:18 Lactate w/ 2H reflex if indic. Sent. me1 19:18 Protime (+inr) Sent. me1 19:18 Ptt, Activated Sent. me1 19:18 Urinalysis w/ reflexes Sent. me1 19:25 Second set of blood cultures drawn by me. me1 21:15 IV discontinued, bleeding controlled, No redness/swelling at site. Pressure dressing rg5 applied. Administered Medications: No medications were administered Medication: 18:50 VIS not applicable for this client. me1 Outcome: 21:12 Discharge ordered by . sb4 21:25 Discharged to home ambulatory, rg5 21:25 Condition: stable 21:25 Discharge instructions given to patient, Instructed on discharge instructions, follow up and referral plans. Demonstrated understanding of instructions, follow-up care, 21:25 Patient left the ED. rg5 Signatures: Manju Quintana PA-C PA-C sb4 Lucero Paige, RN RN me1 Ramona Gaston RN RN tm6 Sheryl Camp ra3 Jaswant Baptiste, RN RN rg5 Corrections: (The following items were deleted from the chart) 19:43 18:37 Chief complaint: Patient states: x1 week lower back pain, difficulty holding me1 urine. Went to urgent care yesterday, they said I have a UTI, gave an antibiotic. Today I feel more pain/spasms/pressure in lower abdomen. Feeling nauseous. [id number]
--- NOTE | 2024-07-14 21:13 | EDPHYS ---
Physician Documentation [facility] Name: Tash Duenas Age: 44 yrs Sex: Female : 1980 Arrival Date: 07/14/2024 Time: 18:14 Bed 13 Private MD: ED Physician Olman Silver HPI: 07/14 19:17 This 44 yrs old Female presents to ER via Ambulatory with complaints of Low sb4 Back Pain, Urinary Problem, Pain With Urination. 19:17 Patient reports urinary urgency, frequency, and lower abdominal pain x 2 days. States sb4 that yesterday, she went to urgent care and was diagnosed with a UTI. States that she was diagnosed with UTI and prescribed Macrobid and Azo. States that her symptoms have gotten worse-reports worsening abdominal pain, fatigue, headache, chills, low back pain. Additionally, she reports diarrhea x 4 days. 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 - Infectious Disease History:: Denies. - Social history:: Smoking status: Patient denies any tobacco usage or history of. ROS: 19:17 Respiratory: Negative for shortness of breath, cough, wheezing, and pleuritic chest sb4 pain, 19:17 Constitutional: Positive for fatigue, malaise, 19:17 Abdomen/GI: Positive for abdominal pain, diarrhea, 19:17 Back: Positive for flank pain, on the left, 19:17 : Positive for urinary symptoms, pelvic pain, urinary frequency, 19:17 All other systems are negative, Exam: 19:17 Head/Face: Normocephalic, atraumatic. Eyes: Extra-ocular motions intact. Periorbital sb4 areas with no swelling, redness, or edema. ENT: Mucous membranes moist. Cardiovascular: Regular rate and rhythm with a normal S1 and S2. Respiratory: No increased work of breathing, no retractions or nasal flaring. 19:17 Constitutional: The patient appears alert, awake, uncomfortable, 19:17 Abdomen/GI: Inspection: abdomen appears normal, Bowel sounds: normal, Palpation: soft, mild abdominal tenderness, in the left lower quadrant, 19:17 Back: CVA tenderness, that is mild, is noted on the left, Vital Signs: 18:35 BP 147 / 93; Pulse 100; Resp 17; Temp 97.8(TE); Pulse Ox 98% on R/A; MAP 106 mmHg; tm6 Weight 65.77 kg; Height 5 ft. 8 in. ; Pain 8/10; 19:54 BP 114 / 87; Pulse 80; Resp 17; Temp 99(O); Pulse Ox 97% on R/A; Pain 7/10; rg5 21:14 BP 109 / 73; Pulse 77; Resp 17; Temp 98; Pulse Ox 99% on R/A; Pain 3/10; rg5 18:35 Body Mass Index 22.05 (65.77 kg, 172.72 cm) tm6 18:35 Pain Scale: Adult tm6 19:54 Pain Scale: Adult rg5 21:14 Pain Scale: Adult rg5 MDM: 18:42 Medical Screening Exam initiated sb4 21:13 Data reviewed: vital signs, nurses notes, lab test result(s), radiologic studies, and sb4 as a result, I will discharge patient. Consideration of Admission/Observation Escalation of care including admission/observation considered. Test considered but Not performed: CT: abd/pelvis, unavailable currently . Counseling: I had a detailed discussion with the patient and/or guardian regarding the historical points, exam findings, and any diagnostic results supporting the discharge/admit diagnosis, lab results, radiology results, the need for outpatient follow up, to return to the emergency department if symptoms worsen or persist or if there are any questions or concerns that arise at home. ED course: Patient is still reporting abdominal pain. Her blood and urine are negative. I offered transfer to another facility for CT scan. She declines. She will go home and get some rest and see how she feels tomorrow. 07/14 18:41 Order name: Blood Culture Adult (2) sb4 07/14 18:41 Order name: CBC with Diff; Complete Time: 19:37 sb4 07/14 18:41 Order name: CMP; Complete Time: 20:19 sb4 07/14 18:41 Order name: Lactate w/ 2H reflex if indic.; Complete Time: 20:33 sb4 07/14 18:41 Order name: Protime (+inr); Complete Time: 19:37 sb4 07/14 18:41 Order name: Ptt, Activated; Complete Time: 19:37 sb4 07/14 18:41 Order name: Urinalysis w/ reflexes; Complete Time: 19:38 sb4 07/14 18:41 Order name: Cardiac monitoring; Complete Time: 19:19 sb4 07/14 18:41 Order name: IV Saline Lock - Large Bore; Complete Time: 19:17 sb4 07/14 18:41 Order name: Labs collected and sent; Complete Time: 19:17 sb4 07/14 18:41 Order name: O2 Per Protocol; Complete Time: 19:17 sb4 07/14 18:41 Order name: O2 Sat Monitoring; Complete Time: 19:18 sb4 07/14 18:41 Order name: Vital Signs; Complete Time: 19:18 sb4 Administered Medications: No medications were administered Disposition Summary: 07/14/24 21:12 Discharge Ordered Notes: Location: Home sb4 Problem: new sb4 Symptoms: are unchanged sb4 Condition: Stable sb4 Diagnosis - Lower abdominal pain, unspecified sb4 Followup: sb4 - With: Emergency Department - When: As needed - Reason: Trouble breathing, Worsening of condition Discharge Instructions: - Discharge Summary Sheet sb4 - Urinary Tract Infection, Adult, [id number] sb4 - Abdominal Pain, Adult, [id number] sb4 Forms: - Patient Portal Instructions sb4 - Leadership Thank You Letter sb4 Signatures: Dispatcher [employer] Manju Aragon PA-C PA-C sb4 Ramona Gaston RN RN tm6
[2024-07-14 21:53] VITALS: BP 109/73; TEMP 98; O2SAT 99
== END 2024-07-14 21:25 | disposition home or self-care (01) ==
LOC: ER 18:14
DX: R10.30 Lower abdominal pain, unspecified (principal); R30.0 Dysuria; R19.7 Diarrhea, unspecified
CPT/HCPCS: 36415; 80053; 81001; 83605; 85025; 85610; 85730; 87040; 99284